=== PATIENT | female | born 1935 | race Caucasian/White ===

== ENCOUNTER 2017-11-29 08:42 | Day surgery (SDC) | payer OTHER ==
[2017-11-29] MEDS ORDERED: PHENYLEPHRINE 10% OPTH 5ML ONE ×2 (09:54→10:59)
[2017-11-29] MEDS ORDERED: CYCLOPENTOLATE 1% OPTH 2 ML ONE ×2 (09:54→10:58)
[2017-11-29] MEDS ORDERED: TETRACAINE HCL 0.5% 2ML OPTH ONE (09:54)
[2017-11-29] MEDS ORDERED: BUPIVACAINE 0.25% PF 10 ML VIAL ONE (09:54)
[2017-11-29] MEDS ORDERED: NA CHLORIDE 0.9% 500 ML ONE ×2 (09:54→10:59)
[2017-11-29] MEDS ORDERED: D50W 25 GM/50 ML SYRINGE IV ONE (10:10)
[2017-11-29] MEDS ORDERED: EPINEPHRINE/PF 1 MG/ML AMP ONE ×2 (10:17→11:08)
[2017-11-29] MEDS ORDERED: NS 0.9% VIAL 10 ML ONE (10:17)
[2017-11-29] MEDS ORDERED: MOXIFLOXACIN HCL 10 DROPS/ML **OR USE OPTH ONE (10:18)
[2017-11-29] MEDS ORDERED: DUOVISC 1 KIT OPTH ONE (10:18)
[2017-11-29] MEDS ORDERED: BALANCED SALT IRRIG PLAIN 500 ML BTL IRR ONE (10:18)
[2017-11-29] MEDS ORDERED: LIDOCAINE 1% MPF 5 ML VIAL ONE (10:30)
[2017-11-29] MEDS ORDERED: PROPOFOL 200 MG/20 ML VIAL IV ONE (10:30)
[2017-11-29] MEDS ORDERED: PHENYLEPHRINE 10% OPTH 5ML OPTH ONE ×2 (10:40→10:45)
[2017-11-29] MEDS ORDERED: CYCLOPENTOLATE 1% OPTH 2 ML OPTH ONE ×2 (10:40→10:45)
[2017-11-29] MEDS ORDERED: LIDOCAINE 2% INJ, MPF 2 ML 3 ML ONE (10:43)
--- NOTE | 2017-11-29 12:15 | P.BOP ---
Preoperative diagnosis: Nuclear sclerotic and posterior subcapsular cataract OD Postoperative diagnosis: Same + phacodenesis Primary procedure: Phacoemulsification with IOL OD, complex CTR Estimated blood loss: None Anesthesia: Local (Subtenon's infusion with anesthesia for cataract surgery.) Complications: None Implants: ZCB00 +21.0 Transferred to: Other (Day surgery) Condition: Good
--- NOTE | 2017-11-30 00:36 | OP ---
Date of Procedure: 11/29/2017 Surgeon: Gabriela Cortes MD Anesthesiologist: 1. Sheldon Diez CRNA. 2. Venkata England M.D. Preoperative Diagnosis: Nuclear sclerotic and posterior subcapsular cataract, right eye. Postoperative Diagnosis: Nuclear sclerotic and posterior subcapsular cataract plus phacodonesis, right eye. Operation Performed: Phacoemulsification with intraocular lens implant OS complex with the use of iris retractors and the capsular tension ring, right eye. Anesthesia: Per cataract surgery. Complications: None. Description Of The Procedure: In day surgery, the patient was prepped with Betadine and draped. A lid speculum was placed in the right eye. A conjunctival incision was made in the inferior nasal quadrant with Enrique scissors. A 1:1 mixture of 2% Xylocaine and 0.25% bupivacaine was placed around the globe. Approximately 5 mL were used. A Honan balloon was placed on the eye for approximately 5 minutes. The patient was brought into the operative room. The patient was prepped and draped in the usual sterile fashion for ophthalmic surgery. A lid speculum was placed in the eye. Paracentesis were made superiorly and inferiorly in the limbal cornea. Viscoat was placed in the anterior chamber. A crescent blade was used to create a tunnel incision in the temporal cornea and a keratome was used to enter the anterior chamber. Provisc was placed in the eye and 360 degree capsulotomy was performed. The lens was loose at the initiation of the capsulotomy. Four additional paracentesis sites were created with one at the wound, one 180 degrees from the wound, and one superiorly and inferiorly; through these, 4 iris retractors were placed to stabilized the lens. The lens was hydrodissected with balanced salt solution and moved freely. The lens was removed in a stop and chop fashion. A 17.15 Phaco CDE was required. Irrigation and aspiration was used to remove residual cortex. Provisc was placed in the eye. A 12 mm capsular tension ring was placed in the capsular bag without complication. A ZCB00 plus 21.0 diopter lens was placed in the capsular bag without complications. The iris retractors were removed. Irrigation and aspiration was used to remove residual viscoelastic. The paracentesis sites were hydrated with balanced salt solution and the wound and paracentesis sites were inspected and found to be watertight. Intracameral Vigamox 0.07 cc was injected at the end of the procedure. The eye was irrigated with balanced salt solution. The eye was patched with a soft cotton patch and Powell metal shield. The patient was returned to day surgery in good condition. Discharge Instructions: Ms. Yang discharged to home in good condition and is to follow up with Dr. Cortes in the morning. ZIGGY/VISHAL Voice ID: [id number] Report ID: [id number]
== END 2017-11-29 12:52 | disposition home or self-care (01) ==
LOC: OR 08:42
PROVIDERS: ATTEND Ophthalmology Retina Specialist
PROC: 08RJ3JZ Replacement of Right Lens with Synthetic Substitute, Percutaneous Approach (ICD-10-PCS; principal; 2017-11-29 10:45)
DX: H25.11 Age-related nuclear cataract, right eye (principal); H25.041 Posterior subcapsular polar age-related cataract, right eye; E11.319 Type 2 diabetes mellitus with unspecified diabetic retinopathy without macular edema; H40.053 Ocular hypertension, bilateral; I10 Essential (primary) hypertension; K21.9 Gastro-esophageal reflux disease without esophagitis; Z87.891 Personal history of nicotine dependence; Z88.6 Allergy status to analgesic agent; Z88.0 Allergy status to penicillin; Z83.3 Family history of diabetes mellitus
CPT/HCPCS: 66982; 82962 ×2; J0171 ×2; J3490

== ENCOUNTER 2020-12-03 06:00 | Inpatient (IN) | payer OTHER ==
[2020-12-03] MEDS ORDERED: ONDANSETRON 4 MG/2 ML VIAL ONE ×2 (06:42→14:11)
[2020-12-03] MEDS ORDERED: MORPHINE 4 MG/ML SYR ONE (06:42)
[2020-12-03 07:35] LABS: Protime INR 1.16
[2020-12-03 07:36] LABS: Absolute Lymphocytes (CBC) 0.6 K/uL (0.7-4.9); Basophils % 0.5 % (0-1.3); Hematocrit 34.1 % (36.0-45.0); Lymphocytes % 5.1 % (15.3-44.8); MPV 8.7 fL (7.6-11.3); RBC Red Blood Cell Count 3.68 M/uL (3.86-4.86)
[2020-12-03 08:08] LABS: ALT/SGPT 29 U/L (12-78); AST/SGOT 36 U/L (15-37); Alkaline Phosphatase 60 U/L (45-117); BUN Blood Urea Nitrogen 14 mg/dL (7-18); Bicarbonate 26 mmol/L (21-32); Bilirubin Direct 0.1 mg/dL (0-0.2); Bilirubin Total 0.5 mg/dL (0.2-1.0); Glucose Level 124 mg/dL (74-106); NT PRO-BNP 243 pg/mL (<450); Potassium 3.3 mmol/L (3.5-5.1); Protein, Total 8.1 g/dL (6.4-8.2); Sodium Level 138 mmol/L (136-145); Troponin (Emerg Dept Use Only) < 0.02 ng/mL (0.0-0.045)
[2020-12-03 08:17] LABS: Blood Morphology Comment NOT SEEN (NOT SEEN); Platelet Estimate ADEQ; White Blood Cell Scan OK (OK)
--- NOTE | 2020-12-03 08:21 | ER ---
Nurse's Notes [facility] Name: Lana Yang Age: 84 yrs Sex: Female : 1935 Arrival Date: 12/03/2020 Time: 06:03 Bed 8 Private MD: Diagnosis: Acute, closed, displaced, left femoral supcapital fracture. Presentation: 12/03 06:06 Chief complaint: Spouse and/or significant other states: Reports pt had a fall at home, ea complaining of pain to the right hip. Coronavirus screen: At this time, the client does not indicate any symptoms associated with coronavirus-19. Ebola Screen: No symptoms or risks identified at this time. Initial Sepsis Screen: Does the patient meet any 2 criteria? No. Patient's initial sepsis screen is negative. Does the patient have a suspected source of infection? No. Patient's initial sepsis screen is negative. Risk Assessment: Do you want to hurt yourself or someone else? Patient reports no desire to harm self or others. Onset of symptoms was December 03, 2020. 06:06 Method Of Arrival: EMS: [facility] 06:06 Acuity: FATEMEH 3 ea Triage Assessment: 06:09 General: Appears uncomfortable, Behavior is restless. Pain: Complains of pain in right ea hip. Historical: - Allergies: 06:09 Codeine; ea 06:09 PENICILLINS; ea - PMHx: 06:09 TIA; Hypothyroidism; Hypertension; High Cholesterol; Diabetes - IDDM; ea - PSHx: 06:09 Thyroidectomy; LUMPECTOMY L BREAST; LASER EYE SURGERY; ea - Immunization history:: Adult Immunizations up to date. - Social history:: Smoking status: Patient denies any tobacco usage or history of. - Family history:: not pertinent. - Hospitalizations: : No recent hospitalization is reported. Screenin:08 Abuse screen: Denies threats or abuse. Nutritional screening: No deficits noted. ea Tuberculosis screening: No symptoms or risk factors identified. Fall Risk None identified. Assessment: 06:15 General: Appears in no apparent distress. Behavior is calm. Pain: Unable to use pain ea scale. Patient appears restless. Neuro: Level of Consciousness is confused, Oriented to none. Respiratory: Airway is patent Respiratory effort is even, unlabored, Respiratory pattern is regular, symmetrical. Derm: Skin is pink, warm \\T\\ dry. 06:53 Reassessment: Pt taken to radiology. ea 07:45 Reassessment: Patient appears in no apparent distress at this time. Patient and/or hb family updated on plan of care and expected duration. Pain level reassessed. at bedside. 08:55 Reassessment: Pt agitated, restless, attempting to get out of bed, requiring 1:1 care, hb at bedside. Dr. Anguiano notified, Demerol administered as ordered. 09:58 Reassessment: Patient and/or family updated on plan of care and expected duration. Pain hb level reassessed. Pt somewhat restless, remains at bedside. 12:39 Reassessment: Patient and/or family updated on plan of care and expected duration. Pain tw2 level reassessed. dr. woo at bedside at this time. Vital Signs: 06:06 BP 165 / 70; Pulse 92; Resp 18; Temp 97.9; Pulse Ox 97% on R/A; Weight 61.23 kg; Height ea 5 ft. 5 in. (165.10 cm); 09:00 BP 124 / 80; Pulse 88; Resp 17; Pulse Ox 99% on R/A; Pain 8/10; hb 09:45 BP 142 / 58; Pulse 81; Resp 15; Pulse Ox 97% on R/A; hb 10:15 BP 151 / 63; Pulse 70; Resp 17; Pulse Ox 96% on R/A; tw2 11:30 BP 159 / 64; Pulse 70; Resp 17; Pulse Ox 95% on R/A; tw2 12:39 BP 158 / 67; Pulse 72; Resp 17; Pulse Ox 96% on R/A; tw2 06:06 Body Mass Index 22.46 (61.23 kg, 165.10 cm) ea 09:00 Anant (FACES) ED Course: 06:03 Patient arrived in ED. mw2 06:08 Triage completed. ea 06:08 Patient has correct armband on for positive identification. Bed in low position. Call ea light in reach. Side rails up X2. 06:08 Arm band placed on right wrist. Patient placed in an exam room, on a stretcher, on ea pulse oximetry. 06:58 Ulysses Anguiano MD is Attending Physician. rn 07:16 Inserted saline lock: 22 gauge in right forearm, using aseptic technique. Blood ea collected. 08:09 Notified ED physician of a critical lab result(s). calcium-6.7. sv 08:14 Keira Schuler, RN is Primary Nurse. hb 08:18 eJm Munoz MD is Hospitalizing Provider. rn 08:40 Silva cath inserted, using sterile technique, 18 Fr., by move coordinator, balloon inflated, to tw2 gravity drainage, other by John Valdivia. 09:58 Troponin (emerg Dept Use Only) Sent. sv 09:58 PT-INR Sent. sv 09:58 NT PRO-BNP Sent. sv 09:58 Magnesium Sent. sv 09:58 LFT's Sent. sv 09:59 CBC with Diff Sent. sv 09:59 Basic Metabolic Panel Sent. sv 09:59 XRAY Chest (1 view) Sent. sv 09:59 XRAY Hip LEFT 2 view Sent. sv 09:59 XRAY Hip RIGHT 2 view Sent. sv 10:22 COVID-19 : Document "Date of Symptom Onset" if Symptomatic. Sent. sv 10:22 CORONAVIRUS Sent. sv 10:34 No provider procedures requiring assistance completed. Patient admitted, IV remains in hb place. Administered Medications: 07:16 Drug: morphine 4 mg Route: IVP; Site: right forearm; ea 07:17 Drug: Zofran (Ondansetron) 4 mg Route: IVP; Site: right forearm; ea 08:54 Drug: Demerol (meperidine) 25 mg Route: IVP; Site: left forearm; hb 09:30 Follow up: Response: No adverse reaction hb 10:16 Drug: Demerol (meperidine) 25 mg Route: IVP; Site: left forearm; hb Outcome: 08:20 Decision to Hospitalize by Provider. rn 10:34 Admitted to ER Hold. Please see [facility] for further documentation. hb 10:34 Condition: stable 10:34 Instructed on the need for admit. 16:50 Patient left the ED. hb Signatures: Barbara Duncan RN RN sv Nieto, Roman, MD MD rn Baxter, Heather, RN RN hb Wise, Tara, RN RN tw2 Saima Ro RN Yasir Oconnor ea mw2
--- NOTE | 2020-12-03 08:21 | EDPHYS ---
Physician Documentation [facility] Name: Lana Yang Age: 84 yrs Sex: Female : 1935 Arrival Date: 12/03/2020 Time: 06:03 Bed 8 Private MD: ED Physician Ulysses Anguiano HPI: 12/03 07:31 This 84 yrs old Female presents to ER via EMS with complaints of Hip Pain. rn 07:31 The patient or guardian reports decreased range of motion, an injury, pain. The rn complaints affect the left hip. Onset: The symptoms/episode began/occurred this morning. Modifying factors: The symptoms are alleviated by remaining still, the symptoms are aggravated by any movement. Associated signs and symptoms: Loss of consciousness: the patient experienced no loss of consciousness, Pertinent positives: None. Pertinent negatives: abdominal pain, chest pain, fever, headache, incontinence, shortness of breath, vomiting, weakness. Severity of symptoms: At their worst the symptoms were moderate, in the emergency department the symptoms are unchanged. The patient has not experienced similar symptoms in the past. reports fall, this morning, complaining only of left hip pain. UNable to ambulate. Not on blood thinners.. Historical: - Allergies: 06:09 Codeine; ea 06:09 PENICILLINS; ea - PMHx: 06:09 TIA; Hypothyroidism; Hypertension; High Cholesterol; Diabetes - IDDM; ea - PSHx: 06:09 Thyroidectomy; LUMPECTOMY L BREAST; LASER EYE SURGERY; ea - Immunization history:: Adult Immunizations up to date. - Social history:: Smoking status: Patient denies any tobacco usage or history of. - Family history:: not pertinent. - Hospitalizations: : No recent hospitalization is reported. ROS: 07:31 Constitutional: Negative for fever, chills, and weight loss, Eyes: Negative for injury, rn pain, redness, and discharge, Neck: Negative for injury, pain, and swelling, Cardiovascular: Negative for chest pain, palpitations, and edema, Respiratory: Negative for shortness of breath, cough, wheezing, and pleuritic chest pain, Abdomen/GI: Negative for abdominal pain, nausea, vomiting, diarrhea, and constipation, Back: Negative for injury and pain, : Negative for injury, bleeding, discharge, and swelling, MS/Extremity: + left hip pain Skin: Negative for injury, rash, and discoloration, Neuro: Negative for headache, weakness, numbness, tingling, and seizure. Exam: 07:31 Constitutional: This is a well developed, well nourished patient who is awake, alert, rn seems uncomfortable Head/Face: Normocephalic, atraumatic. Neck: NO midline cervical tenderness Chest/axilla: Normal chest wall appearance and motion. Nontender with no deformity. No lesions are appreciated. Cardiovascular: Regular rate and rhythm. No pulse deficits. Respiratory: No increased work of breathing, no retractions or nasal flaring. Abdomen/GI: soft, non-tender Skin: Warm, dry, no lacerations MS/ Extremity: Pulses equal, no cyanosis. + left hip tenderness and painful ROM, no gross deformity. Neuro: Awake and alert, GCS 15 Vital Signs: 06:06 BP 165 / 70; Pulse 92; Resp 18; Temp 97.9; Pulse Ox 97% on R/A; Weight 61.23 kg; Height ea 5 ft. 5 in. (165.10 cm); 09:00 BP 124 / 80; Pulse 88; Resp 17; Pulse Ox 99% on R/A; Pain 8/10; hb 09:45 BP 142 / 58; Pulse 81; Resp 15; Pulse Ox 97% on R/A; hb 10:15 BP 151 / 63; Pulse 70; Resp 17; Pulse Ox 96% on R/A; tw2 11:30 BP 159 / 64; Pulse 70; Resp 17; Pulse Ox 95% on R/A; tw2 12:39 BP 158 / 67; Pulse 72; Resp 17; Pulse Ox 96% on R/A; tw2 06:06 Body Mass Index 22.46 (61.23 kg, 165.10 cm) ea 09:00 Anant (FACES) hb MDM: 06:58 Patient medically screened. rn 07:33 ED course: Signed out to me by Dr. Bernal, pending xrays s/p fall this AM, + left hip fx. .rn 08:17 Differential diagnosis: hip fracture, intertrochanteric fracture, femoral neck rn fracture, strain. Data reviewed: vital signs, nurses notes, lab test result(s), radiologic studies, plain films, and as a result, I will admit patient. Counseling: I had a detailed discussion with the patient and/or guardian regarding: the historical points, exam findings, and any diagnostic results supporting the discharge/admit diagnosis, lab results, radiology results, the need for further work-up and treatment in the hospital. Response to treatment: the patient's symptoms have markedly improved after treatment, and as a result, I will admit patient. Admission orders: after a detailed discussion of the patient's condition and case, the admit orders are written by me. ED course: Pt with hip fx, will admit to Dr. Munoz with Dr. Leonard consult.. 12/03 06:18 Order name: Basic Metabolic Panel 12/03 06:18 Order name: CBC with Diff 12/03 06:18 Order name: LFT's 12/03 06:18 Order name: Magnesium 12/03 06:18 Order name: NT PRO-BNP 12/03 06:18 Order name: PT-INR 12/03 06:18 Order name: Troponin (emerg Dept Use Only) 12/03 07:38 Order name: CBC with Automated Diff; Complete Time: 10:42 EDMS 12/03 07:50 Order name: Protime (+INR); Complete Time: 08:00 EDMS 12/03 08:09 Order name: Basic Metabolic Panel; Complete Time: 10:42 EDMS 12/03 08:09 Order name: Liver (Hepatic) Function; Complete Time: 10:42 EDMS 12/03 08:09 Order name: Troponin (Emerg Dept Use Only); Complete Time: 10:42 EDMS 12/03 08:09 Order name: NT PRO-BNP; Complete Time: 10:42 EDMS 12/03 08:09 Order name: Magnesium; Complete Time: 10:42 EDMS 12/03 06:12 Order name: XRAY Hip RIGHT 2 view 12/03 06:18 Order name: XRAY Hip LEFT 2 view 12/03 06:18 Order name: XRAY Chest (1 view) 12/03 06:18 Order name: EKG; Complete Time: 06:19 ea 12/03 06:18 Order name: Cardiac monitoring; Complete Time: 08:43 12/03 06:18 Order name: EKG - Nurse/Tech; Complete Time: 08:43 12/03 08:17 Order name: CBC Smear Scan; Complete Time: 10:42 EDND 12/03 08:49 Order name: RAD; Complete Time: 10:42 EDND 12/03 08:50 Order name: RAD; Complete Time: 10:42 [facility] 12/03 08:57 Order name: COVID-19 : Document "Date of Symptom Onset" if Symptomatic. hb 12/03 10:14 Order name: CORONAVIRUS EDND 12/03 10:54 Order name: SARS-COV-2 RT PCR; Complete Time: 12:54 EDND 12/03 06:18 Order name: IV Saline Lock; Complete Time: 07:17 ea 12/03 06:18 Order name: Labs collected and sent; Complete Time: 07:17 ea 12/03 06:18 Order name: O2 Per Protocol; Complete Time: 06:52 ea 12/03 06:18 Order name: O2 Sat Monitoring; Complete Time: 06:52 ea 12/03 08:43 Order name: Silva; Complete Time: 08:43 tw2 Administered Medications: 07:16 Drug: morphine 4 mg Route: IVP; Site: right forearm; ea 07:17 Drug: Zofran (Ondansetron) 4 mg Route: IVP; Site: right forearm; ea 08:54 Drug: Demerol (meperidine) 25 mg Route: IVP; Site: left forearm; hb 09:30 Follow up: Response: No adverse reaction hb 10:16 Drug: Demerol (meperidine) 25 mg Route: IVP; Site: left forearm; hb Disposition: 12/03/20 08:20 Hospitalization ordered by eJm Munoz for Inpatient Admission. Preliminary diagnosis is Acute, closed, displaced, left femoral supcapital fracture.. - Bed requested for Telemetry/MedSurg (Inpatient). - Status is Inpatient Admission. hb - Condition is Stable. - Problem is new. - Symptoms have improved. Signatures: Dispatcher [employer] EDND Tere Duron Roman, MD MD rn Baxter, Heather, RN RN hb Wise, Tara, RN RN tw2 Saima Ro RN RN ea Corrections: (The following items were deleted from the chart) 10:23 08:20 Hospitalization Ordered by Jem Munoz MD for Inpatient Admission. Preliminary bd diagnosis is Acute, closed, displaced, left femoral supcapital fracture.. Bed requested for Telemetry/MedSurg (Inpatient). Status is Inpatient Admission. Condition is Stable. Problem is new. Symptoms have improved. rn 16:09 10:23 12/03/2020 08:20 Hospitalization Ordered by Jem Munoz MD for Inpatient bd Admission. Preliminary diagnosis is Acute, closed, displaced, left femoral supcapital fracture.. Bed requested for [facility] ER HOLD. Status is Inpatient Admission. Condition is Stable. Problem is new. Symptoms have improved. bd 16:50 16:09 12/03/2020 08:20 Hospitalization Ordered by Jem Munoz MD for Inpatient hb Admission. Preliminary diagnosis is Acute, closed, displaced, left femoral supcapital fracture.. Bed requested for Telemetry/MedSurg (Inpatient). Status is Inpatient Admission. Condition is Stable. Problem is new. Symptoms have improved. bd
--- NOTE | 2020-12-03 08:48 | RAD REPORT ---
EXAM DESCRIPTION: RAD - Hip Left 2 View - 12/03/2020 6:53 am CLINICAL HISTORY: PAIN, fall with left hip pain COMPARISON: No comparisons FINDINGS: AP and frogleg views of the left hip were obtained. Transverse fracture through the left femoral neck is present near the subcapital region. Pathologic c omponent is not suspected. There is impaction of the medial margin of the neck fragment into the base of the femoral head. No dislocation of the femoral head from the acetabulum. No AVN of femoral head seen. No pathologic changes to the left hemipelvis. No rami fractures confirmed. No significant soft tissue finding IMPRESSION: Left femoral neck fracture as detailed.
--- NOTE | 2020-12-03 08:49 | RAD REPORT ---
EXAM DESCRIPTION: RAD - Chest Single View - 12/03/2020 6:53 am CLINICAL HISTORY: CHEST PAIN, preop examination for left hip fracture COMPARISON: Portable February 2016 TECHNIQUE: AP portable chest image was obtained 12/03/2020 6:53 am . FINDINGS: Lung volumes are reduced compared to the prior study. No failure, volume overload or focal infiltrate seen. Interstitial pattern is not substantially different. Heart and vasculature are norm al. No measurable pleural effusion and no pneumothorax. No acute bony abnormality seen. No acute aort ic findings suspected. IMPRESSION: No acute cardiopulmonary process. No significant change from comparison study.
[2020-12-03] MEDS ORDERED: MEPERIDINE HCL 25 MG/ML SYR ONE ×2 (09:08→10:31)
[2020-12-03] MEDS ORDERED: ONDANSETRON 4 MG/2 ML VIAL IV PRN (09:42)
[2020-12-03] MEDS: NA CHLORIDE 0.9% 1,000 ML IV SCH (10:00)
[2020-12-03 11:16] VITALS: BMI 22.4
[2020-12-03] MEDS: CEFAZOLIN/SWI 1gm 1 GM/10 ML SYR IV SCH ×3 (12:00→19:12)
[2020-12-03] MEDS: HYDROMORPHONE HCL 1 MG/ML INJ IV PRN (14:05)
[2020-12-03] MEDS ORDERED: HYDROMORPHONE HCL 1 MG/ML INJ ONE (14:10)
[2020-12-03] MEDS ORDERED: CEFAZOLIN/SWI 1gm 1 GM/10 ML SYR ONE (14:11)
[2020-12-03] MEDS ORDERED: NA CHLORIDE 0.9% 1,000 ML ONE (14:11)
[2020-12-03] MEDS ORDERED: LORazepam 2 MG/ML VIAL IV ONE (20:55)
[2020-12-03] MEDS ORDERED: D50W 25 GM/50 ML SYRINGE IV PRN (20:56)
[2020-12-03] MEDS ORDERED: GLUCAGON 1 MG/VIAL IM PRN (20:56)
[2020-12-03] MEDS: INSULIN -REGULAR HUMAN 50 UNIT/0.5 ML ML SQ SCH (20:59)
[2020-12-04] MEDS: CEFAZOLIN/SWI 1gm 1 GM/10 ML SYR IV SCH ×3 (01:01→11:19)
[2020-12-04] MEDS: HYDROMORPHONE HCL 1 MG/ML INJ IV PRN ×2 (04:45→22:17)
[2020-12-04] MEDS: NA CHLORIDE 0.9% 1,000 ML IV SCH ×3 (04:52→22:16)
--- NOTE | 2020-12-04 05:27 | CON ---
Date of Consultation: 12/03/2020 History Of Present Illness: This is my first time seeing this patient to my knowledge, although may have seen in the past. She is an 84-year-old female who unfortunately fell injuring her right lower extremity. She was seen in the emergency department where she was ruled out for other injuries, linda taveras, x-rays demonstrated a displaced left femoral neck fracture. She Was ruled out for other injurie s other than injury to left hip. Physical Examination: All long bones and joints are palpated without pain or crepitation with the exception of her left hip which is painful to knee movement or manipulation. Imaging: Review of x-rays revealed a displaced left femoral neck fracture. Assessment: An 84-year-old female who is ambulatory now with a displaced left femoral neck fracture. Her family is there with her. She has Alzheimer's. She is unable to really communicate, but famil y says they understand risks, benefits, and alternatives of different methods of treating this. We w ill have her undergo medical evaluation most likely proceed with bipolar hemiarthroplasty tomorrow. All the family's questions were otherwise answered. /VISHAL Voice ID: [id number] Report ID: [id number]
[2020-12-04 05:51] LABS: Absolute Lymphocytes (CBC) 0.5 K/uL (0.7-4.9); Basophils % 0.4 % (0-1.3); Hematocrit 31.6 % (36.0-45.0); Lymphocytes % 4.5 % (15.3-44.8); RBC Red Blood Cell Count 3.41 M/uL (3.86-4.86)
[2020-12-04 06:05] LABS: Protime INR 1.36
[2020-12-04 06:40] LABS: Albumin 3.4 g/dL (3.4-5.0); Bilirubin Total 0.8 mg/dL (0.2-1.0); Magnesium 1.9 mg/dL (1.8-2.4); Potassium 3.5 mmol/L (3.5-5.1); Protein, Total 7.3 g/dL (6.4-8.2)
[2020-12-04] MEDS: INSULIN -REGULAR HUMAN 50 UNIT/0.5 ML ML SQ SCH ×3 (07:30→22:14)
--- NOTE | 2020-12-04 08:45 | EKG ---
Test Date: 2020-12-03 Test Time: 07:19:14 Hogshead Opener: JW MEASUREMENT RESULTS: Intervals: Rate: 84 LA: 154 QRSD: 68 QT: 412 QTc: 486 [place]: P: 5 LA: 154 QRS: 39 T: 32 INTERPRETIVE STATEMENTS: Normal sinus rhythm Nonspecific ST abnormality Abnormal ECG Compared to ECG 02/18/2016 06:26:29 ST (T wave) deviation now present Electronically Signed On 12-04-20 08:41:49 CDT by Daniel Dyson
[2020-12-04] MEDS: ENOXAPARIN 40 MG/0.4 ML SQ SCH (09:00)
[2020-12-04] MEDS: KCL 20 MEQ/100 mL IVPB 20 MEQ/100 ML BAG IV SCH ×2 (09:00→17:04)
--- NOTE | 2020-12-04 11:20 | P.HP ---
Certification for Inpatient Patient admitted to: Inpatient With expected LOS: >2 Midnights Patient will require the following post-hospital care: Rehabilitation Practitioner: I am a practitioner with admitting privileges, knowledge of patient current condition, hospital course, and medical plan of care. Services: Services provided to patient in accordance with Admission requirements found in Title 42 Section 412.3 of the Code of Federal Regulations Patient History Date of Service: 12/03/20 Reason for admission: Status post fall and left femoral neck fracture History of Present Illness: Patient is an 84-year-old female who came to the hospital after suffering a fall. She lost her balance and suffered a left femoral neck fracture. Patient was admitted to the hospital for further evaluation. Patient with multiple comorbidities including hypertension and diabetes. Patient denies any chest pain or shortness of breath. Patient does have a history of dementia. She is at Alzheimer's dementia. Spoke with family and they are wanting to proceed with surgery. Risks and benefits were explained. At this time plan is for surgery tomorrow morning. Allergies Penicillins Allergy (Verified 11/05/17 11:55) Rash codeine Adverse Reaction (Verified 11/05/17 11:55) Nausea/Vomiting Home Medications: Amlodipine [Norvasc*] 5 mg PO DAILY 12/03/20 Calcitriol [Rocaltrol] 0.25 mcg PO DAILY 12/03/20 Donepezil [Aricept*] 10 mg PO DAILY 12/03/20 Dorzolamide [Trusopt 2%*] 2 drops EACH EYE DAILY 12/03/20 Ezetimibe 10 mg PO BEDTIME 12/03/20 Levothyroxine [Synthroid*] 0.112 mcg PO DAILY 12/03/20 Olmesartan Medoxomil 40 mg PO DAILY 12/03/20 Timolol [Betimol] 2 drops LEFT EYE DAILY 12/03/20 Trazodone [Desyrel*] 50 mg PO 30 MIN BEFORE HS 12/03/20 calcitrioL [Calcitriol] 25 mcg PO DAILY 12/03/20 - Past Medical/Surgical History Has patient received pneumonia vaccine in the past: Yes Diabetic: Yes -: Diabetes mellitus type 2 -: Hypertension -: Hyperlipidemia -: Glaucoma -: Cataracts -: hypothyroidism -: Cataract surgery -: laser eye surgery -: L breast lumpectomy -: thyroidectomy Psychosocial/ Personal History: She is . Has 2 children. She no longer works. - Family History Brother Medical History: Cancer - Social History Smoking Status: Former smoker Alcohol use: No CD- Drugs: No Caffeine use: Yes Review of Systems 10-point ROS is otherwise unremarkable Physical Examination - Vital Signs Temperature: 98.4 F Blood Pressure: 146/71 Pulse: 70 Respirations: 14 Pulse Ox (%): 91 - Physical Exam General: Alert, In no apparent distress, Demented HEENT: Atraumatic, PERRLA, Mucous membr. moist/pink, EOMI, Sclerae nonicteric Neck: Supple, 2+ carotid pulse no bruit, No LAD, Without JVD or thyroid abnormality Respiratory: Clear to auscultation bilaterally, Normal air movement Cardiovascular: Regular rate/rhythm, Normal S1 S2, Systolic murmur Gastrointestinal: Normal bowel sounds, Soft and benign, Non-distended, No tenderness Musculoskeletal: No clubbing, No swelling, Tenderness Integumentary: No rashes Neurological: Normal speech, Normal tone, Sensation intact, Cranial nerves 3-12 intact, Normal affect, Abnormal gait, Abnormal strength Lymphatics: No axilla or inguinal lymphadenopathy Assessment & Plan - Problems (Diagnosis) (1) Displaced fracture of left femoral neck Current Visit: Yes Status: Acute (2) Alzheimer's type dementia Current Visit: Yes Status: Acute (3) Diabetes mellitus Onset Date: 02/18/16 Current Visit: No Status: Chronic (4) Hyperlipidemia Onset Date: 02/18/16 Current Visit: No Status: Chronic Qualifiers: (5) Hypertension Onset Date: 02/18/16 Current Visit: No Status: Chronic Qualifiers: - Plan Plan: 1. Pain control 2. Physical therapy evaluation after surgery 3. Orthopedic surgeon consultation appreciated 4. Supportive care 5. Strict blood pressure and blood sugar control 6. GI and DVT prophylaxis Discharge Plan: Other (Rehabilitation) Plan to discharge in: Greater than 2 days - Advance Directives Does patient have a Living Will: No Does patient have a Durable POA for Healthcare: No - Code Status/Comfort Care Code Status Assessed: Yes Code Status: Full Code Critical Care: No Time Spent Managing PTS Care (In Minutes): 45
[2020-12-04] MEDS ORDERED: TRANEXAMIC ACID 1,000 MG in NA CHLORIDE 0.9% 50 ML IV SCH (12:00)
[2020-12-04] MEDS ORDERED: INSULIN -REGULAR HUMAN 50 UNIT/0.5 ML ML SQ SCH (12:00)
[2020-12-04] MEDS ORDERED: CALCIUM GLUC 10% INJ 4.65 MEQ in NA CHLORIDE 0.9% 100 ML IV ONE (12:03)
[2020-12-04] MEDS ORDERED: FENTANYL CITR 100 MCG/2 ML ONE (12:06)
[2020-12-04] MEDS ORDERED: LIDOCAINE 2% MPF 5 ML VIAL ONE (12:06)
[2020-12-04] MEDS ORDERED: HYDROMORPHONE HCL 0.5 MG/0.5 ML INJ IV ONE (12:06)
[2020-12-04] MEDS ORDERED: propofoL 200 MG/20 ML VIAL IV ONE (12:06)
[2020-12-04] MEDS ORDERED: ROCURONIUM 50 MG/5 ML VIAL IV ONE (12:07)
[2020-12-04] MEDS ORDERED: ONDANSETRON 4 MG/2 ML VIAL ONE (12:07)
[2020-12-04] MEDS: MIDAZOLAM HCL 2 MG/2 ML INJ ONE ×2 (12:20→12:25)
[2020-12-04] MEDS ORDERED: HYDROMORPHONE HCL 1 MG/ML INJ ONE (12:33)
[2020-12-04] MEDS ORDERED: NA CHLORIDE 0.9% 1,000 ML ONE (12:36)
--- NOTE | 2020-12-04 14:51 | P.BOP ---
Preoperative diagnosis: left femoral neck fracture Postoperative diagnosis: same Primary procedure: left hip bipolar hemiarthoplasty Estimated blood loss: 150 Anesthesia: General Complications: None Transferred to: Recovery Room Condition: Good
[2020-12-04] MEDS ORDERED: GLYCOPYRROLATE 0.2 MG/ML SYR ONE (15:03)
[2020-12-04] MEDS ORDERED: NEOSTIGMINE 1 MG/ML -5 ML ONE (15:04)
[2020-12-04] MEDS: HYDROMORPHONE HCL 1 MG/ML INJ ONE ×2 (15:39→15:44)
[2020-12-04] MEDS ORDERED: HYDRALAZINE HCL 20 MG/ML VIAL ONE (15:48)
[2020-12-04] MEDS ORDERED: LORazepam 2 MG/ML VIAL ONE (16:13)
[2020-12-04] MEDS ORDERED: LORazepam 2 MG/ML VIAL IV ONE ×2 (17:00→23:19)
--- NOTE | 2020-12-04 17:09 | P.PN ---
Subjective Date of Service: 12/04/20 Patient is severely demented. Scheduled for open reduction internal fixation of left hip. Will need prolonged physical therapy and rehab afterwards. Review of Systems is unable to be obtained Physical Examination - Vital Signs Temperature: 98.5 F Blood Pressure: 109/63 Pulse: 63 Respirations: 14 Pulse Ox (%): 91 - Physical Exam General: Alert, In no apparent distress, Demented HEENT: Atraumatic, PERRLA, EOMI Neck: Supple, JVD not distended Respiratory: Clear to auscultation bilaterally, Normal air movement Cardiovascular: Regular rate/rhythm, Normal S1 S2, Systolic murmur Gastrointestinal: Normal bowel sounds, Soft and benign, Non-distended, No tenderness Musculoskeletal: No clubbing, No swelling, No tenderness Neurological: Normal speech - Studies Medications List Reviewed: Yes Assessment & Plan - Problems (Diagnosis) (1) Displaced fracture of left femoral neck Current Visit: Yes Status: Acute (2) Alzheimer's type dementia Current Visit: Yes Status: Acute (3) Diabetes mellitus Onset Date: 02/18/16 Current Visit: No Status: Chronic (4) Hyperlipidemia Onset Date: 02/18/16 Current Visit: No Status: Chronic Qualifiers: (5) Hypertension Onset Date: 02/18/16 Current Visit: No Status: Chronic Qualifiers: - Plan Plan: Continue with plan of care as mentioned below 1. Patient go to the operating room today. Benefits outweigh the risk of surgery. 2. Physical therapy evaluation after surgery 3. Orthopedic surgeon consultation appreciated 4. Supportive care 5. Strict blood pressure and blood sugar control 6. GI and DVT prophylaxis Discharge Plan: Home Plan to discharge in: Greater than 2 days - Advance Directives Does patient have a Living Will: No Does patient have a Durable POA for Healthcare: No - Code Status/Comfort Care Code Status: Full Code Critical Care: No Time Spent Managing PTS Care (In Minutes): 35
--- NOTE | 2020-12-04 22:44 | OP ---
Date of Procedure: 12/04/2020 Surgeon: Luis Angel Leonard MD Preoperative Diagnosis: Left displaced femoral neck fracture. Postoperative Diagnosis: Left displaced femoral neck fracture. Procedure: Left hip bipolar hemiarthroplasty using the [place] cemented system. Estimated Blood Loss: 150 cc. Complications: None. Indication For Operation: Ms. Yang is an 84-year-old female who unfortunately suffers from chao ia and fell injuring her left lower extremity. She was seen and examined in the emergency department where she was ruled out for other injuries other than abrasions and some bruising, but x-rays demons trated a displaced left femoral neck fracture. Risks, benefits, and alternatives to different method s of treating this have been talked to the family including the possibility of infection, dislocation , especially a problem those with dementia. He says he understands things as presented and at this t karen agrees to proceed. Procedure In Detail: The patient was taken to the operating room in the supine position. General an esthesia was obtained. She was then transferred to the operative table. She was then rolled right s philly down with an axillary roll. She was in appropriate position using hip positioners and her left l ower extremity was then prepped and draped in usual sterile fashion for arthroplasty. After this, a standard posterolateral incision was taken down carefully through skin, only meticulous hemostasis be ing maintained using Bovie electrocautery. The fascia was encountered. It was then divided longitud inally until near the tip of the greater trochanter where the muscles of gluteus bereket were encount ered. Gluteus bereket muscle was then spread using finger pressure. Finger was used to palpate the sciatic nerve and Charnley was used to assist in visualization. Bursa was then removed carefully bryant iding injury to the sciatic nerve. This was followed by takedown of the external rotators and capsul e as a unit. These were tagged for later repair. A femoral neck cut was then done, which was very s lightly shorter than normal. Any neck pieces were removed. The head was then removed and sized usin g ring gauges. Any debris was removed from the acetabulum and box storage worker was used to lateralize. Th is was followed by using the canal-finding reamer. It was then sequentially broached. Once the broa ch was quite tight, the bone plug was placed to appropriate depth. It was then irrigated until the i rrigation runs completely clear. After this, third generation cementation technique was used, and th e final stem was then placed to appropriate depth. It was allowed to harden and a trial reduction wi th the +4 was tried, appeared to be quite good. However, given the patient's diagnosis of mental dif ficulties, decision was made to go slightly longer a +8. This was reduced and she was stable to full flexion, internal rotation to at least 30 degrees. Full adduction. It was decided as the final imp lant. The final ball was then applied care being taken to avoid any debris within the acetabulum. I t was again copiously irrigated and the external rotators and capsule were repaired back to the great er trochanter via bone tunnels. It was again irrigated and the fascia was closed in a watertight fas hion using heavy Vicryl sutures. It was again irrigated. The skin was closed using Vicryl followed by tera. The patient was then placed in Aquacel dressing, awakened and taken to recovery room in good condition. No complications. SE/MODL Voice ID: [id number] Report ID: [id number]
[2020-12-05] MEDS: ACETAMINOPHEN 500 MG TAB PO PRN ×2 (00:56→20:13)
[2020-12-05 05:55] LABS: Absolute Lymphocytes (CBC) 0.5 K/uL (0.7-4.9); Basophils % 0.3 % (0-1.3); Hematocrit 26.8 % (36.0-45.0); Lymphocytes % 4.8 % (15.3-44.8); MPV 9.2 fL (7.6-11.3); RBC Red Blood Cell Count 2.85 M/uL (3.86-4.86)
[2020-12-05 06:06] LABS: Potassium 3.3 mmol/L (3.5-5.1)
[2020-12-05] MEDS: KCL 20 MEQ/100 mL IVPB 20 MEQ/100 ML BAG IV SCH ×2 (06:37→08:29)
[2020-12-05] MEDS: INSULIN -REGULAR HUMAN 50 UNIT/0.5 ML ML SQ SCH ×4 (07:30→21:51)
[2020-12-05] MEDS ORDERED: CALCIUM GLUC 10% INJ 4.65 MEQ in NA CHLORIDE 0.9% 100 ML IV ONE ×2 (08:20→15:55)
[2020-12-05] MEDS: ENOXAPARIN 40 MG/0.4 ML SQ SCH (08:29)
[2020-12-05] MEDS ORDERED: LORazepam 2 MG/ML VIAL IV ONE (08:52)
[2020-12-05] MEDS: HYDROMORPHONE HCL 1 MG/ML INJ IV PRN (12:32)
[2020-12-05] MEDS ORDERED: WATER FOR INJ,STERILE 10 ML IM PRN (13:14)
[2020-12-05] MEDS ORDERED: ZIPRASIDONE MESYLA 20 MG/VIAL IM ONE (13:14)
[2020-12-05] MEDS: NA CHLORIDE 0.9% 1,000 ML IV SCH (15:20)
[2020-12-05] MEDS: HALOPERIDOL LACT 5 MG/ML INJ IV PRN ×2 (17:50→21:41)
[2020-12-05] MEDS: RISPERIDONE 0.25 MG TABLET PO SCH (20:13)
[2020-12-05] MEDS: CALCIUM CARB 500MG/VIT D 200 IU TAB PO SCH (21:00)
[2020-12-05] MEDS ORDERED: POTASSIUM CL SA 10 MEQ TAB PO ONE (21:00)
[2020-12-06] MEDS ORDERED: NA CHLORIDE 0.9% 50 ML ONE (00:12)
[2020-12-06] MEDS: KCL 20 MEQ/100 mL IVPB 20 MEQ/100 ML BAG IV SCH ×2 (02:01)
--- NOTE | 2020-12-06 02:13 | PN ---
Date of Progress Note: 12/05/2020 The patient is seen today. She is quite confused. She was pulling at some of her bed linens, howeve r, her dressing as well as her Silva are intact. She does have her abduction pillow in place. Her h eels are nontender. Dressing is clean, dry, and intact. Review of laboratories reveal somewhat high glucose as well as low calcium and hemoglobin of 8.9. These will be addressed by the hospitalist. I do recommend posterior hip precautions as they can be followed as well as anticoagulation if warran yaritza for 3 weeks followed by aspirin with removal of tera at 2 weeks from time of surgery. She can be weightbearing as tolerated. SE/MODL Voice ID: [id number] Report ID: [id number]
[2020-12-06] MEDS: INSULIN -REGULAR HUMAN 50 UNIT/0.5 ML ML SQ SCH ×4 (07:30→21:00)
[2020-12-06] MEDS: ENOXAPARIN 40 MG/0.4 ML SQ SCH (09:00)
[2020-12-06] MEDS: CALCIUM CARB 500MG/VIT D 200 IU TAB PO SCH ×3 (09:00→20:43)
[2020-12-06] MEDS ORDERED: KCL 20 MEQ/100 mL IVPB 20 MEQ/100 ML BAG IV SCH (17:00)
[2020-12-06] MEDS: RISPERIDONE 0.25 MG TABLET PO SCH (20:43)
[2020-12-06] MEDS: HALOPERIDOL LACT 5 MG/ML INJ IV PRN (22:21)
[2020-12-07] MEDS: LORazepam 2 MG/ML VIAL IV PRN (00:14)
[2020-12-07] MEDS: HALOPERIDOL LACT 5 MG/ML INJ IV PRN (04:20)
[2020-12-07] MEDS: INSULIN -REGULAR HUMAN 50 UNIT/0.5 ML ML SQ SCH ×4 (07:30→21:22)
[2020-12-07 07:42] LABS: BUN Blood Urea Nitrogen 13 mg/dL (7-18); Bicarbonate 18 mmol/L (21-32); Glucose Level 302 mg/dL (74-106); Potassium 3.4 mmol/L (3.5-5.1); Sodium Level 136 mmol/L (136-145)
[2020-12-07] MEDS: CALCIUM CARB 500MG/VIT D 200 IU TAB PO SCH ×3 (09:00→20:33)
[2020-12-07] MEDS: ENOXAPARIN 40 MG/0.4 ML SQ SCH (09:00)
[2020-12-07] MEDS: KCL 20 MEQ/100 mL IVPB 20 MEQ/100 ML BAG IV SCH ×2 (20:32→22:08)
[2020-12-07] MEDS: RISPERIDONE 0.25 MG TABLET PO SCH (20:33)
[2020-12-07] MEDS ORDERED: NA CHLORIDE 0.9% 250 ML ONE (20:56)
[2020-12-08 06:48] LABS: BUN Blood Urea Nitrogen 16 mg/dL (7-18); Bicarbonate 22 mmol/L (21-32); Glucose Level 202 mg/dL (74-106); Potassium 3.5 mmol/L (3.5-5.1); Sodium Level 139 mmol/L (136-145)
[2020-12-08] MEDS: INSULIN -REGULAR HUMAN 50 UNIT/0.5 ML ML SQ SCH ×4 (07:30→20:42)
[2020-12-08] MEDS: ENOXAPARIN 40 MG/0.4 ML SQ SCH (08:54)
[2020-12-08] MEDS: CALCIUM CARB 500MG/VIT D 200 IU TAB PO SCH ×3 (08:55→21:00)
[2020-12-08] MEDS ORDERED: KCL 20 MEQ/100 mL IVPB 20 MEQ/100 ML BAG IV SCH (09:00)
[2020-12-08] MEDS ORDERED: NA CHLORIDE 0.9% 250 ML ONE (18:20)
[2020-12-08] MEDS ORDERED: POTASSIUM 25 MEQ EFFERV TAB PO ONE (18:32)
[2020-12-08] MEDS: LORazepam 2 MG/ML VIAL IV PRN (20:42)
[2020-12-08] MEDS: RISPERIDONE 0.25 MG TABLET PO SCH (21:00)
--- NOTE | 2020-12-08 21:13 | P.PN ---
Date of Service: 12/05/20 Subjective Continuing with physical therapy. Patient confused and agitated and having to use anxiolytics to help patient relax Review of Systems is unable to be obtained Physical Examination - Vital Signs Reviewed - Physical Exam General: Alert, In no apparent distress, Demented Respiratory: Clear to auscultation bilaterally, Normal air movement Cardiovascular: Regular rate/rhythm, Normal S1 S2, Systolic murmur Gastrointestinal: Normal bowel sounds, Soft and benign, Non-distended, No tenderness Musculoskeletal: No clubbing, No swelling, No tenderness Neurological: Normal speech; moves all extremities Assessment & Plan - Problems (Diagnosis) (1) Displaced fracture of left femoral neck Current Visit: Yes Status: Acute (2) Alzheimer's type dementia Current Visit: Yes Status: Acute (3) Diabetes mellitus Onset Date: 02/18/16 Current Visit: No Status: Chronic (4) Hyperlipidemia Onset Date: 02/18/16 Current Visit: No Status: Chronic (5) Hypertension Onset Date: 02/18/16 Current Visit: No Status: Chronic Qualifiers: - Plan Plan: Continue with plan of care as mentioned below 1. Start physical therapy; anxiolytics as needed 2. Patient will need 1 on 1 sitter 3. Orthopedic surgeon consultation appreciated 4. Supportive care; probably will not qualify for inpatient rehab as patient does not follow commands well 5. Strict blood pressure and blood sugar control 6. GI and DVT prophylaxis
--- NOTE | 2020-12-08 23:28 | P.PN ---
Date of Service: 12/06/20 Subjective Patient still very agitated. Symptoms are somewhat better. Family is able to calm patient down; patient is already ambulating with therapy Review of Systems is unable to be obtained Physical Examination - Vital Signs Reviewed - Physical Exam General: Alert, In no apparent distress, Demented Respiratory: Clear to auscultation bilaterally, Normal air movement Cardiovascular: Regular rate/rhythm, Normal S1 S2, Systolic murmur Gastrointestinal: Normal bowel sounds, Soft and benign, Non-distended, No tenderness Musculoskeletal: No clubbing, No swelling, No tenderness Neurological: Normal speech; moves all extremities; strength is somewhat imp roved Assessment & Plan - Problems (Diagnosis) (1) Displaced fracture of left femoral neck Current Visit: Yes Status: Acute (2) Alzheimer's type dementia Current Visit: Yes Status: Acute (3) Diabetes mellitus Onset Date: 02/18/16 Current Visit: No Status: Chronic (4) Hyperlipidemia Onset Date: 02/18/16 Current Visit: No Status: Chronic (5) Hypertension Onset Date: 02/18/16 Current Visit: No Status: Chronic Qualifiers: - Plan Plan: Continue with plan of care as mentioned below 1. Continue physical therapy at this time. Patient's strength is improving 2. Family is staying at bedside and will arrange for 1:1 sitter 3. Orthopedic surgeon consultation appreciated 4. Awaiting for halfway facility placement 5. Strict blood pressure and blood sugar control 6. GI and DVT prophylaxis
--- NOTE | 2020-12-08 23:38 | P.PN ---
Date of Service: 12/07/20 Subjective Patient with no new changes. Patient clinical symptoms are improving. Strength has improved quite a bit. Patient continues to work with physical therapy. Review of Systems is unable to be obtained Physical Examination - Vital Signs Reviewed - Physical Exam General: Alert, In no apparent distress, Demented Respiratory: Clear to auscultation bilaterally, Normal air movement Cardiovascular: Regular rate/rhythm, Normal S1 S2, Systolic murmur Gastrointestinal: Normal bowel sounds, Soft and benign, Non-distended, No tenderness Musculoskeletal: No clubbing, No swelling, No tenderness Neurological: Normal speech; moves all extremities; strength is somewhat improved Assessment & Plan - Problems (Diagnosis) (1) Displaced fracture of left femoral neck Current Visit: Yes Status: Acute (2) Alzheimer's type dementia Current Visit: Yes Status: Acute (3) Diabetes mellitus Onset Date: 02/18/16 Current Visit: No Status: Chronic (4) Hyperlipidemia Onset Date: 02/18/16 Current Visit: No Status: Chronic (5) Hypertension Onset Date: 02/18/16 Current Visit: No Status: Chronic Qualifiers: - Plan Plan: Continue with plan of care as mentioned below 1. Continue physical therapy; strength improving 2. Patient listening to family for the most part. Still wants to get out of bed quite a bit 3. Appreciate Ortho assistance 4. Awaiting for retirement facility placement 5. Strict blood pressure and blood sugar control 6. GI and DVT prophylaxis
--- NOTE | 2020-12-08 23:42 | P.PN ---
Date of Service: 12/08/20 Subjective Patient doing well with no new complaint. at bedside with her. Patient does have multiple bruises on her upper extremity. Made need some padding on the bed. She may a lap around the whole nurses station today. Her strength continues to improve. Review of Systems is unable to be obtained Physical Examination - Vital Signs Reviewed - Physical Exam General: Alert, In no apparent distress, Demented Respiratory: Clear to auscultation bilaterally, Normal air movement Cardiovascular: Regular rate/rhythm, Normal S1 S2, Systolic murmur Gastrointestinal: Normal bowel sounds, Soft and benign, Non-distended, No tenderness Musculoskeletal: No clubbing, No swelling, No tenderness Neurological: Normal speech; moves all extremities; strength is improved Assessment & Plan - Problems (Diagnosis) (1) Displaced fracture of left femoral neck Current Visit: Yes Status: Acute (2) Alzheimer's type dementia Current Visit: Yes Status: Acute (3) Diabetes mellitus Onset Date: 02/18/16 Current Visit: No Status: Chronic (4) Hyperlipidemia Onset Date: 02/18/16 Current Visit: No Status: Chronic (5) Hypertension Onset Date: 02/18/16 Current Visit: No Status: Chronic Qualifiers: - Plan Plan: Continue with plan of care as mentioned below 1. Continue physical therapy; strength improving 2. Patient listening to family for the most part. Still wants to get out of bed quite a bit 3. Appreciate Ortho assistance 4. Awaiting for halfway facility placement 5. Strict blood pressure and blood sugar control 6. GI and DVT prophylaxis
[2020-12-09 04:29] LABS: Potassium 3.4 mmol/L (3.5-5.1)
[2020-12-09] MEDS: INSULIN -REGULAR HUMAN 50 UNIT/0.5 ML ML SQ SCH ×4 (07:30→21:30)
[2020-12-09] MEDS: KCL 20 MEQ/100 mL IVPB 20 MEQ/100 ML BAG IV SCH ×2 (07:54→10:53)
[2020-12-09] MEDS: CALCIUM CARB 500MG/VIT D 200 IU TAB PO SCH ×3 (09:00→21:00)
[2020-12-09] MEDS: ENOXAPARIN 40 MG/0.4 ML SQ SCH (09:42)
[2020-12-09] MEDS ORDERED: TRAMADOL HCL 50 MG TAB PO PRN (10:52)
[2020-12-09] MEDS ORDERED: HYDROMORPHONE HCL 0.5 MG/0.5 ML INJ IV PRN (10:52)
[2020-12-09] MEDS: LORazepam 2 MG/ML VIAL IV PRN (11:43)
[2020-12-09] MEDS ORDERED: NA CHLORIDE 0.9% 250 ML IV PRN (15:30)
[2020-12-09] MEDS ORDERED: NA CHLORIDE 0.9% 250 ML ONE (15:34)
--- NOTE | 2020-12-09 15:39 | P.PN ---
Subjective Date of Service: 12/09/20 Chief Complaint: Status post fall and left femoral neck fracture Subjective: Improving, Doing well Physical Examination - Vital Signs Temperature: 97.6 F Blood Pressure: 123/88 Pulse: 87 Respirations: 18 Pulse Ox (%): 98 - Studies Medications List Reviewed: Yes Assessment & Plan Discharge Plan: Other (nursing home facility) Plan to discharge in: 24 Hours Physician Review Additional Text: Physical Exam: GENERAL: [The patient is a well-developed, well-nourished, in no apparent distress. Alert and oriented x3.] VITAL SIGNS: [Reviewed] HEENT: [Head is normocephalic and atraumatic. Extraocular muscles are intact. Pupils are equal, round, and reactive to light and accommodation. Nares appeared normal. Mouth is well hydrated and without lesions. Mucous membranes are moist. ] NECK: [Supple. No carotid bruits. No lymphadenopathy or thyromegaly.] LUNGS: [Clear to auscultation. No crackles or wheezes are heard.] HEART: [Regular rate and rythem, no appreciable gallops, rubs, murmurs or extra heart sounds] ABDOMEN: [Soft, nontender, and nondistended. Positive bowel sounds. No hepatosplenomegaly was noted.] EXTREMITIES: [Without any cyanosis, clubbing, rash, lesions or peripheral edema.] NEUROLOGIC: [The patient is oriented to person, place and time. Strength and sensation are grossly intact. Face is symmetric.] SKIN: [Normal color, turgor and temperature. No ulcerations or rashes noted.] Impression: Left displaced femoral neck fracture status post left hip bipolar hemiarthroplasty Hypertension Hyperlipidemia Dementia Diabetes mellitus type 2 Hypothyroidism Plan: Left displaced femoral neck fracture status post left hip bipolar hemiarthroplas ty: Continue with physical therapy. Patient awaiting approval for skilled placement. Continue DVT prophylaxisLovenox. Continue to provide medication for pain. Continue with current medications. Continue to discuss with patient and family Hypertension: Restart home medication including Norvasc and ARB inhibitor. Hyperlipidemia: Continue with Zetia Dementia: Continue medication Diabetes mellitus type 2: Suspect diabetes. Will check A1c. Sliding scale in place. Hypothyroidism: Continue medication. Will check TSH Code Status: [Full Code] DVT prophylaxis: [Lovenox] Advanced Care Planning-30 minutes: Plan of care discussed with geriatric social worker. Notes reviewed. Patient awaiting approval for skilled placement. Time Spent Managing Pts Care (In Minutes): 55
[2020-12-09] MEDS ORDERED: NA CHLORIDE 0.9% 250 ML IV SCH (16:00)
[2020-12-09] MEDS: RISPERIDONE 0.25 MG TABLET PO SCH (21:20)
[2020-12-09] MEDS: EZETIMIBE 10 MG TAB PO SCH (21:20)
[2020-12-09] MEDS: TRAZODONE 50 MG TABLET PO SCH (21:21)
[2020-12-10 06:28] LABS: Thyroid Stimulating Hormone 51.6 uIU/mL (0.360-3.740)
[2020-12-10] MEDS ORDERED: LEVOTHYROXINE SOD 0.125 MG TAB PO ONE (07:00)
[2020-12-10] MEDS: HOME MED 1 EA UNK (Olmesartan Medoxomil [Olmesartan Medoxomil] 40 MG Tablet) PO SCH (09:00)
[2020-12-10] MEDS: ENOXAPARIN 40 MG/0.4 ML SQ SCH (09:00)
[2020-12-10] MEDS ORDERED: CALCITRIOL 0.5 MCG PO SCH (09:00)
[2020-12-10] MEDS: TIMOLOL OPTH SCH (09:00)
[2020-12-10] MEDS ORDERED: LEVOTHYROXINE SOD 0.112 MG TAB PO SCH (09:00)
[2020-12-10] MEDS: DONEPEZIL HCL 5 MG TAB PO SCH (09:00)
[2020-12-10] MEDS: DORZOLAMIDE 2% OPTH (10 ML) EACH EYE SCH (10:04)
[2020-12-10] MEDS: AMLODIPINE 5 MG TAB PO SCH (10:04)
[2020-12-10] MEDS: CALCITROL 0.25 MCG CAP PO SCH (10:05)
[2020-12-10] MEDS: CALCIUM CARB 500MG/VIT D 200 IU TAB PO SCH ×2 (10:05→21:50)
[2020-12-10] MEDS: INSULIN -REGULAR HUMAN 50 UNIT/0.5 ML ML SQ SCH ×4 (10:06→21:00)
--- NOTE | 2020-12-10 10:22 | P.PN ---
Subjective Date of Service: 12/10/20 Chief Complaint: Status post fall and left femoral neck fracture Subjective: Doing well Physical Examination - Vital Signs Temperature: 97.4 F Blood Pressure: 154/64 Pulse: 74 Respirations: 16 Pulse Ox (%): 99 - Studies Medications List Reviewed: Yes Assessment & Plan Discharge Plan: Other (SNF) Plan to discharge in: 24 Hours Physician Review Additional Text: Physical Exam: GENERAL: The patient is a well-developed, well-nourished, in no apparent distress. Patient alert. Patient with dementia. Sitter at bedside. VITAL SIGNS: Reviewed HEENT: Neck supple LUNGS: Clear to auscultation. No crackles or wheezes are heard. HEART: Regular rate and rhythm, no appreciable gallops, rubs, murmurs or extra heart sounds ABDOMEN: Soft, nontender, and nondistended. Positive bowel sounds. No hepatosplenomegaly was noted. EXTREMITIES: Without any cyanosis, clubbing, rash, lesions or peripheral edema. NEUROLOGIC: Patient alert. Patient with dementia. SKIN: Normal color, turgor and temperature. No ulcerations or rashes noted. Impression: Left displaced femoral neck fracture status post left hip bipolar hemiart hroplasty Hypertension Hyperlipidemia Dementia Diabetes Mellitus Type 2 with hypoglycemia Hypothyroidism Plan: Left displaced femoral neck fracture status post left hip bipolar hemiarthroplasty: Continue with physical therapy. Patient awaiting approval for skilled placement. Spoke to daughter concerning plan of care. Daughter is looking to transition to [facility] in the future. A sitter is currently there. This was provided by family. This has become very expensive. A sitter may be needed if current provider not available. Continue DVT prophylaxisLovenox. Anticipate approval to skilled facility likely in the next 24 to 48 hours. Hypertension: Continue with Norvasc and olmesartan. Hyperlipidemia: Continue with Zetia Dementia: Continue medication-Aricept. Risperidone and trazodone also added. Additional medication for agitation provided. Family has provided a sitter. This may be no longer available. If so we will have hospital provide sitter. Diabetes mellitus type 2 with hypoglycemia: Daughter expressed that the fall is likely related to hypoglycemia. Insulin has been discontinued. A1c is 8.0. Will start Metformin. Will continue to monitor sliding scale. Will adjust accordingly. Daughter reports patient needs to be off insulin in order to consider long-term care in the memory unit. Hypothyroidism: TSH and Free T4 reviewed. Will increase medication-Levoxyl 125 mcg daily. Will need to recheck TSH and free T4 in 4 to 6 weeks to monitor her progress. Code Status: Full Code DVT prophylaxis: Lovenox Advanced Care Planning-30 minutes: Plan of care discussed with daughter. Awaiting approval for skilled placement. Daughter trying to get patient to long-term care in the future. Time Spent Managing Pts Care (In Minutes): 55
[2020-12-10] MEDS: LORazepam 2 MG/ML VIAL IV PRN (12:49)
[2020-12-10] MEDS: METFORMIN HCL 500 MG TAB PO SCH (17:00)
[2020-12-10] MEDS: EZETIMIBE 10 MG TAB PO SCH (21:50)
[2020-12-10] MEDS: TRAZODONE 50 MG TABLET PO SCH (21:50)
[2020-12-10] MEDS: RISPERIDONE 0.25 MG TABLET PO SCH (21:50)
[2020-12-10] MEDS: GLUCERNA SHAKE 237 ML CAN PO SCH (21:50)
[2020-12-11] MEDS: HALOPERIDOL LACT 5 MG/ML INJ IV PRN (01:05)
[2020-12-11 06:01] LABS: Potassium 3.8 mmol/L (3.5-5.1)
[2020-12-11] MEDS: LEVOTHYROXINE SOD 0.125 MG TAB PO SCH (06:06)
[2020-12-11] MEDS: INSULIN -REGULAR HUMAN 50 UNIT/0.5 ML ML SQ SCH ×4 (08:04→20:28)
[2020-12-11] MEDS: SITAGLIPTIN PHOS 100 MG TAB PO SCH (08:58)
[2020-12-11] MEDS: METFORMIN HCL 500 MG TAB PO SCH ×2 (08:58→16:36)
[2020-12-11] MEDS: CALCITROL 0.25 MCG CAP PO SCH (08:59)
[2020-12-11] MEDS: ENOXAPARIN 40 MG/0.4 ML SQ SCH (08:59)
[2020-12-11] MEDS: DONEPEZIL HCL 5 MG TAB PO SCH (09:00)
[2020-12-11] MEDS: TIMOLOL OPTH SCH (09:00)
[2020-12-11] MEDS: AMLODIPINE 5 MG TAB PO SCH (09:00)
[2020-12-11] MEDS ORDERED: POTASSIUM 25 MEQ EFFERV TAB PO ONE (09:00)
[2020-12-11] MEDS: CALCIUM CARB 500MG/VIT D 200 IU TAB PO SCH ×2 (09:00→20:31)
[2020-12-11] MEDS: HOME MED 1 EA UNK (Olmesartan Medoxomil [Olmesartan Medoxomil] 40 MG Tablet) PO SCH (09:00)
[2020-12-11] MEDS: GLUCERNA SHAKE 237 ML CAN PO SCH ×2 (09:02→20:32)
[2020-12-11] MEDS: DORZOLAMIDE 2% OPTH (10 ML) EACH EYE SCH (10:03)
--- NOTE | 2020-12-11 13:43 | P.PN ---
Subjective Date of Service: 12/11/20 Chief Complaint: Status post fall and left femoral neck fracture Subjective: Other (got medication for agitation last night. increase sedation noted) Physical Examination - Vital Signs Temperature: 97 F Blood Pressure: 130/58 Pulse: 82 Respirations: 17 Pulse Ox (%): 98 - Studies Medications List Reviewed: Yes Assessment & Plan Discharge Plan: Other (SNF/Memory care unit) Plan to discharge in: 48 Hours Physician Review Additional Text: Physical Exam: GENERAL: The patient is a well-developed, well-nourished, in no apparent distress. Patient alert. Patient with dementia. Sitter at bedside. VITAL SIGNS: Reviewed HEENT: Neck supple LUNGS: Clear to auscultation. No crackles or wheezes are heard. HEART: Regular rate and rhythm, no appreciable gallops, rubs, murmurs or extra heart sounds ABDOMEN: Soft, nontender, and nondistended. Positive bowel sounds. No hepatosplenomegaly was noted. EXTREMITIES: Without any cyanosis, clubbing, rash, lesions or peripheral edema. NEUROLOGIC: Patient alert. Patient with dementia. SKIN: Normal color, turgor and temperature. No ulcerations or rashes noted. Impression: Left displaced femoral neck fracture status post left hip bipolar hemiarthroplasty Hypertension Hyperlipidemia Dementia Diabetes Mellitus Type 2 with hypoglycemia Hypothyroidism Plan: Left displaced femoral neck fracture status post left hip bipolar hemiarthroplasty: She got medication for agitation last night. Will DC ativan. Will provide Haldol as needed. Continue with physical therapy. Patient awaiting approval for skilled placement. Spoke to daughter concerning plan of care. Daughter is looking to transition to rodent exterminator care in the future. Continue DVT prophylaxisLovenox. Anticipate approval to skilled facility likely in the next 24 to 48 hours. Hypertension: Continue with Norvasc and olmesartan. Hyperlipidemia: Continue with Zetia Dementia: Continue medication-Aricept. Risperidone and trazodone also added. Discontinue Ativan. Will provide other medication for agitation if needed. Diabetes mellitus type 2 with hypoglycemia: Daughter expressed that the fall is likely related to hypoglycemia. Insulin has been discontinued. A1c is 8.0. Metformin started. Will also start Januvia. Will continue to monitor sliding scale. Will adjust accordingly. Daughter reports patient needs to be off insulin in order to consider long-term care in the memory unit. If insulin still required will consider low-dose basal insulin. Hypothyroidism: TSH and Free T4 reviewed. Will increase medication-Levoxyl 125 mcg daily. Will need to recheck TSH and free T4 in 4 to 6 weeks to monitor her progress. Code Status: Full Code DVT prophylaxis: Lovenox Advanced Care Planning-30 minutes: Plan of care discussed with daughter. Awaiting approval for skilled placement. Daughter trying to get patient to long-term care in the future. Time Spent Managing Pts Care (In Minutes): 55
[2020-12-11] MEDS ORDERED: D50W 25 GM/50 ML VIAL IV PRN (14:00)
[2020-12-11] MEDS: EZETIMIBE 10 MG TAB PO SCH (20:29)
[2020-12-11] MEDS: RISPERIDONE 0.25 MG TABLET PO SCH (20:29)
[2020-12-11] MEDS: TRAZODONE 50 MG TABLET PO SCH (20:30)
[2020-12-12 05:06] LABS: Potassium 3.6 mmol/L (3.5-5.1)
[2020-12-12] MEDS: LEVOTHYROXINE SOD 0.125 MG TAB PO SCH (06:02)
[2020-12-12] MEDS: METFORMIN HCL 500 MG TAB PO SCH ×3 (08:00→16:15)
[2020-12-12] MEDS: INSULIN -REGULAR HUMAN 50 UNIT/0.5 ML ML SQ SCH ×4 (08:46→20:51)
[2020-12-12] MEDS: GLUCERNA SHAKE 237 ML CAN PO SCH ×2 (08:46→21:00)
[2020-12-12] MEDS: HOME MED 1 EA UNK (Olmesartan Medoxomil [Olmesartan Medoxomil] 40 MG Tablet) PO SCH (08:47)
[2020-12-12] MEDS: TIMOLOL OPTH SCH (08:47)
[2020-12-12] MEDS: SITAGLIPTIN PHOS 100 MG TAB PO SCH ×2 (08:51→09:00)
[2020-12-12] MEDS: CALCIUM CARB 500MG/VIT D 200 IU TAB PO SCH ×3 (08:54→20:52)
[2020-12-12] MEDS: AMLODIPINE 5 MG TAB PO SCH ×2 (08:54→09:00)
[2020-12-12] MEDS: CALCITROL 0.25 MCG CAP PO SCH ×2 (08:55→09:00)
[2020-12-12] MEDS: ENOXAPARIN 40 MG/0.4 ML SQ SCH (08:55)
[2020-12-12] MEDS: DORZOLAMIDE 2% OPTH (10 ML) EACH EYE SCH (08:56)
[2020-12-12] MEDS: DONEPEZIL HCL 5 MG TAB PO SCH (09:00)
[2020-12-12] MEDS ORDERED: POTASSIUM 25 MEQ EFFERV TAB PO ONE (09:00)
[2020-12-12] MEDS ORDERED: POTASSIUM CL SA 10 MEQ TAB PO ONE (09:00)
--- NOTE | 2020-12-12 11:22 | P.PN ---
Subjective Date of Service: 12/12/20 Chief Complaint: Status post fall and left femoral neck fracture Subjective: Demented, Other (Patient doing better this morning. Less sedation noted.) Physical Examination - Vital Signs Temperature: 97.6 F Blood Pressure: 144/55 Pulse: 87 Respirations: 16 Pulse Ox (%): 97 - Studies Medications List Reviewed: Yes Assessment & Plan Discharge Plan: Other ([facility] facility) Plan to discharge in: 24 Hours Physician Review Additional Text: Physical Exam: GENERAL: Patient with underlying dementia. Patient resting in bed. VITAL SIGNS: Reviewed HEENT: Neck supple LUNGS: Clear to auscultation. No crackles or wheezes are heard. HEART: Regular rate and rhythm, no appreciable gallops, rubs, murmurs or extra heart sounds ABDOMEN: Soft, nontender, and nondistended. Positive bowel sounds. No hepatosplenomegaly was noted. EXTREMITIES: Without any cyanosis, clubbing, rash, lesions or peripheral edema. NEUROLOGIC: Patient with dementia. Patient resting in bed. Slight sedation noted. SKIN: Normal color, turgor and temperature. No ulcerations or rashes noted. Impression: Left displaced femoral neck fracture status post left hip bipolar hemiarthroplasty Hypertension Hyperlipidemia Dementia Diabetes Mellitus Type 2 with hypoglycemia Hypothyroidism Plan: Left displaced femoral neck fracture status post left hip bipolar hemiarthroplasty: We will discontinue Haldol. Ativan was discontinued. We will try to limit medication for sedation or agitation. Encourage ambulation with physical therapy. Awaiting approval for skilled placement. Social work working to facilitate a transfer to skilled facility with memory unit. Case discussed with daughter on plan of care yesterday. Continue DVT prophylaxisLovenox. Anticipate approval to skilled facility likely in the next 24 to 48 hours. Hypertension: Continue with Norvasc and olmesartan. Hyperlipidemia: Continue with Zetia Dementia: Continue medication-Aricept. Risperidone and trazodone also added. Haldol and Ativan has been discontinued. Limit any medication for agitation as this will increase sedation. Diabetes mellitus type 2 with hypoglycemia: Daughter expressed that the fall is likely related to hypoglycemia. Insulin has been discontinued. A1c is 8.0. Continue Metformin and Januvia. Will continue to monitor sliding scale. Will adjust accordingly. Daughter reports patient needs to be off insulin in order to consider long-term care in the memory unit. If insulin still required will consider low-dose basal insulin. Hypothyroidism: TSH and Free T4 reviewed.Levoxyl 125 mcg daily has been adjusted.. Will need to recheck TSH and free T4 in 4 to 6 weeks to monitor her progress. Code Status: Full Code DVT prophylaxis: Lovenox Advanced Care Planning-30 minutes: Plan of care discussed with daughter. Awaiting approval for skilled placement. Daughter trying to get patient to long-term care in the future. Time Spent Managing Pts Care (In Minutes): 55
[2020-12-12] MEDS: ACETAMINOPHEN 500 MG TAB PO PRN ×2 (11:39→16:15)
[2020-12-12] MEDS: TRAZODONE 50 MG TABLET PO SCH (20:51)
[2020-12-12] MEDS: EZETIMIBE 10 MG TAB PO SCH (20:52)
[2020-12-12] MEDS: RISPERIDONE 0.25 MG TABLET PO SCH (20:52)
[2020-12-13] MEDS: LEVOTHYROXINE SOD 0.125 MG TAB PO SCH (06:04)
[2020-12-13 06:07] LABS: BUN Blood Urea Nitrogen 20 mg/dL (7-18); Bicarbonate 29 mmol/L (21-32); Glucose Level 306 mg/dL (74-106); Potassium 3.9 mmol/L (3.5-5.1); Sodium Level 137 mmol/L (136-145)
[2020-12-13] MEDS ORDERED: POTASSIUM CL SA 10 MEQ TAB PO ONE ×2 (07:26→12:45)
[2020-12-13 08:48] VITALS: TEMP 96.6; O2SAT 98
[2020-12-13] MEDS: TIMOLOL OPTH SCH (09:00)
[2020-12-13] MEDS: ENOXAPARIN 40 MG/0.4 ML SQ SCH (09:00)
[2020-12-13] MEDS: AMLODIPINE 5 MG TAB PO SCH (09:00)
[2020-12-13] MEDS: DONEPEZIL HCL 5 MG TAB PO SCH (09:00)
[2020-12-13] MEDS ORDERED: POTASSIUM 25 MEQ EFFERV TAB PO ONE (09:00)
[2020-12-13] MEDS: GLUCERNA SHAKE 237 ML CAN PO SCH (09:00)
[2020-12-13] MEDS: HOME MED 1 EA UNK (Olmesartan Medoxomil [Olmesartan Medoxomil] 40 MG Tablet) PO SCH (09:00)
[2020-12-13] MEDS: INSULIN -REGULAR HUMAN 50 UNIT/0.5 ML ML SQ SCH ×2 (09:00→12:46)
[2020-12-13] MEDS: DORZOLAMIDE 2% OPTH (10 ML) EACH EYE SCH (09:17)
[2020-12-13 12:06] VITALS: BP 111/49
[2020-12-13] MEDS: METFORMIN HCL 500 MG TAB PO SCH (12:45)
[2020-12-13] MEDS: SITAGLIPTIN PHOS 100 MG TAB PO SCH (12:45)
[2020-12-13] MEDS: CALCITROL 0.25 MCG CAP PO SCH (12:45)
[2020-12-13] MEDS: CALCIUM CARB 500MG/VIT D 200 IU TAB PO SCH (12:45)
--- NOTE | 2020-12-13 12:52 | P.PN ---
Subjective Date of Service: 12/13/20 Chief Complaint: Status post fall and left femoral neck fracture Subjective: Demented, Other (Patient stable this time. No need for medication for agitation Overnite.) Physical Examination - Vital Signs Temperature: 96.6 F Blood Pressure: 111/49 Pulse: 73 Respirations: 18 Pulse Ox (%): 100 - Studies Medications List Reviewed: Yes Assessment & Plan Discharge Plan: [facility] ([facility] Plan to discharge in: 24 Hours Physician Review Additional Text: Physical Exam: GENERAL: Patient with underlying dementia. Advanced dementia noted Patient resting in bed. Patient alert. VITAL SIGNS: Reviewed HEENT: Neck supple LUNGS: Clear to auscultation. No crackles or wheezes are heard. HEART: Regular rate and rhythm, no appreciable gallops, rubs, murmurs or extra heart sounds ABDOMEN: Soft, nontender, and nondistended. Positive bowel sounds. No hepatosplenomegaly was noted. EXTREMITIES: Without any cyanosis, clubbing, rash, lesions or peripheral edema. NEUROLOGIC: Patient with dementia. Patient resting in bed. SKIN: Normal color, turgor and temperature. No ulcerations or rashes noted. Impression: Left displaced femoral neck fracture status post left hip bipolar hemiarthroplasty Hypertension Hyperlipidemia Dementia Diabetes Mellitus Type 2 with hypoglycemia Hypothyroidism Plan: Left displaced femoral neck fracture status post left hip bipolar hemiarthroplasty: Patient did not require any medication for agitation. Haldol and Ativan has been discontinued. Continue with medication for dementia. Continue with physical therapy. Patient awaiting approval for skilled placement. Placement will be to a facility that has a memory unit. Continue DVT prophylaxis-Lovenox. Anticipate approval soon. Family plans to transition patient to long-term care with memory unit in the future. Hypertension: Continue with Norvasc and olmesartan. Hyperlipidemia: Continue with Zetia Dementia: Continue medication-Aricept. Risperidone and trazodone also added. Haldol and Ativan has been discontinued. Limit any medication for agitation as this will increase sedation. Diabetes mellitus type 2 with hypoglycemia: Daughter expressed that the fall is likely related to hypoglycemia. Insulin has been discontinued. A1c is 8.0. Will increase metformin and Januvia for better diabetic control. Sliding scale in place. Monitor closely. Hopefully this will suffice as the patient will be transition to skilled placement and memory unit. Would recommend not using long acting insulin at this time. Hypothyroidism: TSH and Free T4 reviewed.Levoxyl 125 mcg daily has been adjusted.. Will need to recheck TSH and free T4 in 4 to 6 weeks to monitor her progress. Code Status: Full Code DVT prophylaxis: Lovenox Advanced Care Planning-30 minutes: Plan of care discussed with daughter. Awaiting approval for skilled placement. Daughter trying to get patient to long-term care in the future. Time Spent Managing Pts Care (In Minutes): 55
--- NOTE | 2020-12-13 13:30 | P.DS ---
Admission Date: 12/03/20 Discharge Date: 12/13/20 Primary Care Provider: Dr. Gilman Disposition: ROUTINE DISCHARGE Discharge Condition: GOOD Reason for Admission: Status post fall and left femoral neck fracture Consultations: Orthopedics-Dr. Leonard Procedures: COVID: Negative Hip Xray: COMPARISON: No comparisons FINDINGS: AP and frogleg views of the left hip were obtained. Transverse fracture through the left femoral neck is present near the subcapital region. Pathologic component is not suspected. There is impaction of the medial margin of the neck fragment into the base of the femoral head. No dislocation of the femoral head from the acetabulum. No AVN of femoral head seen. No pathologic changes to the left hemipelvis. No rami fractures confirmed. No significant soft tissue finding IMPRESSION: Left femoral neck fracture as detailed. Surgery: Date of Procedure: 12/04/2020 Surgeon: Luis Angel Leonard MD Preoperative Diagnosis: Left displaced femoral neck fracture. Postoperative Diagnosis: Left displaced femoral neck fracture. Procedure: Left hip bipolar hemiarthroplasty using the [place] cemented system. Estimated Blood Loss: 150 cc. Complications: None. Medical Problem List: Left displaced femoral neck fracture status post left hip bipolar hemiarthroplasty Hypertension Hyperlipidemia Dementia Diabetes Mellitus Type 2 with hypoglycemia/hyperglycemia Hypothyroidism Postoperative anemia Brief History of Present Illness: 84-year-old Caucasion female who came to the hospital after suffering a fall. She lost her balance and suffered a left femoral neck fracture. Patient was admitted to the hospital for further evaluation. Patient with multiple comorbidities including hypertension and diabetes. Patient denies any chest pain or shortness of breath. Patient does have a history of dementia. She is at Alzheimer's dementia. Spoke with family and they are wanting to proceed with surgery. Risks and benefits were explained. Patient admitted for treatment. Hospital Course: Patient presented with a fall. Patient found to have a left displaced femoral neck fracture. Patient was admitted for further evaluation and treatment. Patient was seen and evaluated by surgery. Surgical intervention was recommended. Surgical intervention was performed. Left hip bipolar hemiarthroplasty was performed. Patient received physical therapy thereafter. Patient continue to do well. Due to her dementia skilled facility was recommended. Patient was accepted to go to a skilled facility with a memory unit due to her dementia. Patient accepted. At discharge the patient will continue with physical therapy at the care home. Patient may continue with Lovenox 40 mg subcu daily for at least 7 more days. Patient will continue with physical therapy as recommended by Orthopedics. Orthopedics recommends to remove tear after 2 weeks from surgery. Recommend follow up with orthopedics in the next 2 weeks to follow up this hospitalization and continue her care. Fall precautions in place. Case discussed in detail with family who agrees with plan of care. Family will readdress advanced directives while at the skilled facility. Patient has PCP in [place] (formerly [facility]). Family is looking to find a local PCP in the area to continue her care. I was able to get her connected with Dr. [place] who plans to follow up with the family and likely continue care. Patient with hypertension. This appears stable. At discharge patient will continue with home losartan 40 mg daily and Norvasc 5 mg daily. Recommend to maintain blood pressure less than 130/80. Further adjustment can be done by her PCP. Patient with hyperlipidemia. At discharge patient will continue with Zetia 10 mg daily. Patient with diabetes mellitus type 2 with fluctuating blood sugars. Patient previously on Lantus. Lantus was discontinued due to increase risk of hypoglycemia which may have contributed to her fall. A1c 8.0. Patient transition tube metformin and Januvia. At discharge patient will continue with metformin at 1000 mg 1 pill twice daily and Januvia 50 mg daily. Recommend to monitor blood sugars at least twice daily. Recommend to maintain blood sugar less than 140 fasting and less than 200 after meals. Further adjustment can be done by her blood sugars remain above 200 further adjustment may be required. Recommend follow up with PCP in 1 week to follow up this hospitalization and continue to monitor her diabetes closely. Patient with hypothyroidism. Medication was adjusted during the course of her stay. Levoxyl was increased to 125 mcg daily. Recommend to recheck tsh and free T4 in 4-6 weeks to monitor her progress. Further adjustment may be required. This can be done with the help of her PCP. Patient with postoperative anemia. This has remained stable. Will recommend to continue multi vitamin daily and thiamine 100 mg daily. Recommend to recheck CBC in 1-2 weeks to monitor her progress. Patient with advanced dementia. At discharge patient will continue with Aricept 5 mg daily. Patient also takes Risperdal 0.5 mg at bedtime and trazodone 50 mg at bedtime. Consider further adjustment if with increase sedation. Patient will continue at the skilled facility at the [facility]. Family is looking to consider long-term care for the patient if her condition worsens. Other options would include possible hospice. Spoke with family in detail concerning advanced directives. Family will talk with other family members. They will readdress advanced directives and possible long-term plan care for the patient in the near future. Vital Signs/Physical Exam: Temp Pulse Resp BP Pulse Ox 96.6 F L 73 18 111/49 L 100 12/13/20 12:52 12/13/20 12:52 12/13/20 12:52 12/13/20 12:52 12/13/20 12:52 General: Alert, Demented HEENT: Atraumatic Neck: Supple Respiratory: Clear to auscultation bilaterally Cardiovascular: Normal pulses, Regular rate/rhythm Gastrointestinal: Normal bowel sounds, No tenderness, No masses, No rebound, No guarding Integumentary: No tenderness/swelling Laboratory Data at Discharge: WBC 11.00 K/uL (4.3-10.9) H 12/05/20 05:05 Hgb 8.9 g/dL (12.0-15.0) L 12/05/20 05:05 Hct 26.8 % (36.0-45.0) L D 12/05/20 05:05 Plt Count 170 K/uL (152-406) D 12/05/20 05:05 PT 15.7 SECONDS (9.5-12.5) H 12/04/20 05:37 INR 1.36 12/04/20 05:37 APTT 24.9 SECONDS (24.3-36.9) 12/04/20 05:37 Sodium 137 mmol/L (136-145) 12/13/20 05:19 Potassium 3.9 mmol/L (3.5-5.1) 12/13/20 05:19 BUN 20 mg/dL (7-18) H 12/13/20 05:19 Creatinine 0.62 mg/dL (0.55-1.3) 12/13/20 05:19 Glucose 306 mg/dL (74-106) H 12/13/20 05:19 Magnesium 1.9 mg/dL (1.8-2.4) 12/04/20 05:37 Total Bilirubin 0.8 mg/dL (0.2-1.0) 12/04/20 05:37 AST 38 U/L (15-37) H 12/04/20 05:37 ALT 22 U/L (12-78) 12/04/20 05:37 Alkaline Phosphatase 68 U/L (45-117) 12/04/20 05:37 Home Medications: Amlodipine [Norvasc*] 5 mg PO DAILY 12/03/20 Calcitriol [Rocaltrol] 0.25 mcg PO DAILY 12/03/20 Donepezil [Aricept*] 10 mg PO DAILY 12/03/20 Dorzolamide [Trusopt 2%*] 2 drops EACH EYE DAILY 12/03/20 Ezetimibe 10 mg PO BEDTIME 12/03/20 Olmesartan Medoxomil 40 mg PO DAILY 12/03/20 Timolol [Betimol] 2 drops LEFT EYE DAILY 12/03/20 Trazodone [Desyrel*] 50 mg PO 30 MIN BEFORE HS 12/03/20 Calcium Carbonate/Vitamin D3 [Oscal 500 + Vit D 200 Iu Tab*] 1 tab PO BID #60 tab 12/13/20 Enoxaparin Sodium [Lovenox 40 MG INJ*] 40 mg SQ DAILY #7 syr 12/13/20 Levothyroxine [Synthroid*] 0.125 mg PO DAILYAC #30 tab 12/13/20 Metformin HCl 1,000 mg PO BID #60 tablet 12/13/20 Multivit with Iron,Minerals [Complete Senior] 1 each PO DAILY #90 tablet 12/13/20 Sitagliptin Phosphate [Januvia] 50 mg PO DAILY #90 tablet 12/13/20 Thiamine HCl 100 mg PO DAILY #90 tablet 12/13/20 risperiDONE [Risperdal 0.25 MG TAB*] 0.5 mg PO BEDTIME #60 tab 12/13/20 New Medications: Multivit with Iron,Minerals [Complete Senior] 1 each PO DAILY #90 tablet Sitagliptin Phosphate [Januvia] 50 mg PO DAILY #90 tablet Enoxaparin Sodium [Lovenox 40 MG INJ*] 40 mg SQ DAILY #7 syr Metformin HCl 1,000 mg PO BID #60 tablet Calcium Carbonate/Vitamin D3 [Oscal 500 + Vit D 200 Iu Tab*] 1 tab PO BID #60 tab risperiDONE [Risperdal 0.25 MG TAB*] 0.5 mg PO BEDTIME #60 tab Levothyroxine [Synthroid*] 0.125 mg PO DAILYAC #30 tab Thiamine HCl 100 mg PO DAILY #90 tablet Physician Discharge Instructions: Patient presented with a fall. Patient found to have a left displaced femoral neck fracture. Patient was admitted for further evaluation and treatment. Patient was seen and evaluated by surgery. Surgical intervention was recommended. Surgical intervention was performed. Left hip bipolar hemiarthroplasty was performed. Patient received physical therapy thereafter. Patient continue to do well. Due to her dementia skilled facility was [facility]. Patient was accepted to go to a skilled facility with a memory unit due to her dementia. Patient accepted. At discharge the patient will continue with physical therapy at the care home. Patient may continue with Lovenox 40 mg subcu daily for at least 7 more days. Patient will continue with physical therapy as recommended by Orthopedics. Orthopedics recommends to remove tera after 2 weeks from surgery. Recommend follow up with orthopedics in the next 2 weeks to follow up this hospitalization and continue her care. Fall precautions in place. Case discussed in detail with family who agrees with plan of care. Family will readdress advanced directives while at the skilled facility. Patient has PCP in [place] (formerly [facility]). Family is looking to find a local PCP in the area to continue her care. I was able to get her connected with Dr. [place] who plans to follow up with the family and likely continue care. Patient with hypertension. This appears stable. At discharge patient will continue with home losartan 40 mg daily and Norvasc 5 mg daily. Recommend to maintain blood pressure less than 130/80. Further adjustment can be done by her PCP. Patient with hyperlipidemia. At discharge patient will continue with Zetia 10 mg daily. Patient with diabetes mellitus type 2 with fluctuating blood sugars. Patient previously on Lantus. Lantus was discontinued due to increase risk of hypoglycemia which may have contributed to her fall. A1c 8.0. Patient transition tube metformin and Januvia. At discharge patient will continue with metformin at 1000 mg 1 pill twice daily and Januvia 50 mg daily. Recommend to monitor blood sugars at least twice daily. Recommend to maintain blood sugar less than 140 fasting and less than 200 after meals. Further adjustment can be done by her blood sugars remain above 200 further adjustment may be required. Recommend follow up with PCP in 1 week to follow up this hospitalization and continue to monitor her diabetes closely. Patient with hypothyroidism. Medication was adjusted during the course of her stay. Levoxyl was increased to 125 mcg daily. Recommend to recheck tsh and free T4 in 4-6 weeks to monitor her progress. Further adjustment may be required. This can be done with the help of her PCP. Patient with postoperative anemia. This has remained stable. Will recommend to continue multi vitamin daily and thiamine 100 mg daily. Recommend to recheck CBC in 1-2 weeks to monitor her progress. Patient with advanced dementia. At discharge patient will continue with Aricept 5 mg daily. Patient also takes Risperdal 0.5 mg at bedtime and trazodone 50 mg at bedtime. Consider further adjustment if with increase sedation. Patient will continue at the skilled facility at the [facility]. Family is looking to consider long-term care for the patient if her condition worsens. Other options would include possible hospice. Spoke with family in detail concerning advanced directives. Family will talk with other family members. They will readdress advanced directives and possible long-term plan care for the patient in the near future. Diet: ADA Activity: Fall precautions Followup: NONE,NONE [Primary Care Provider] - Time spent managing pt's care (in minutes): 55
[2020-12-13 15:36] LABS: Ferritin 177.1 ng/mL (8-388)
[2020-12-13] MEDS ORDERED: METFORMIN HCL 500 MG TAB PO SCH (17:00)
[2020-12-14] MEDS ORDERED: SITAGLIPTIN PHOS 100 MG TAB PO SCH (09:00)
== END 2020-12-13 15:27 | DRG 522 ==
LOC: ER 06:00 → ERHOLD 09:43 → 2ND 16:30
PROVIDERS: ADMIT Hospitalist; ATTEND Family Medicine
PROC: 0SRS0J9 Replacement of Left Hip Joint, Femoral Surface with Synthetic Substitute, Cemented, Open Approach (ICD-10-PCS; principal; 2020-12-04 13:30)
DX: S72.012A Unspecified intracapsular fracture of left femur, initial encounter for closed fracture (principal); G30.9 Alzheimer's disease, unspecified; F02.80 Dementia in other diseases classified elsewhere, unspecified severity, without behavioral disturbance, psychotic disturbance, mood disturbance, and anxiety; E78.5 Hyperlipidemia, unspecified; E03.9 Hypothyroidism, unspecified; D64.9 Anemia, unspecified; E11.649 Type 2 diabetes mellitus with hypoglycemia without coma; I10 Essential (primary) hypertension; W18.30XA Fall on same level, unspecified, initial encounter; Z88.5 Allergy status to narcotic agent; Z88.0 Allergy status to penicillin; Z79.84 Long term (current) use of oral hypoglycemic drugs; Z86.73 Personal history of transient ischemic attack (TIA), and cerebral infarction without residual deficits; Z79.899 Other long term (current) drug therapy; Z79.890 Hormone replacement therapy; Z87.891 Personal history of nicotine dependence; Z20.822 Contact with and (suspected) exposure to COVID-19
CPT/HCPCS: 36415; 51702; 71045; 80048; 80053; 80076; 82607; 82728; 82947; 83036; 83540; 83735; 83880; 84132; 84439; 84443; 84466; 84484; 85025; 85610; 85730; 88305; 88311; 93005; 97110; 97112; 97116; 97162; 97165; 97530; 99285; J0360; J0610; J0690; J1170; J1630; J1650; J2175; J2250; J2405; J2704; J2710; J3010; J3480; J3486; J7030; J7050; U0003

== ENCOUNTER 2020-12-17 09:10 | Inpatient (IN) | payer OTHER ==
[2020-12-17 09:55] LABS: Arterial Blood Carboxyhemoglob 1.3 % (0-1.5); Blood Gas Oxyhemoglobin 97.7 % (94-97)
[2020-12-17] MEDS ORDERED: INSULIN -REGULAR HUMAN 50 UNIT/0.5 ML ML ONE (09:57)
--- NOTE | 2020-12-17 10:11 | RAD REPORT ---
EXAM DESCRIPTION: [facility] Single View12/17/2020 10:00 am CLINICAL HISTORY: Shortness of breath COMPARISON: December 03, 2020 FINDINGS: The lungs appear clear of acute infiltrate. The heart is normal size IMPRESSION: No acute abnormalities displayed
[2020-12-17] MEDS ORDERED: NA CHLORIDE 0.9% 500 ML ONE ×4 (10:15→22:42)
--- NOTE | 2020-12-17 10:35 | RAD REPORT ---
EXAM DESCRIPTION: CT - Head Brain Wo Cont - 12/17/2020 10:11 am CLINICAL HISTORY: Alteration of awareness/confusion COMPARISON: 2015 TECHNIQUE: Computed axial tomography of the head was obtained. IV contrast was not requested. All CT scans are performed using dose optimization technique as appropriate and may include automated exposure control or mA/KV adjustment according to patient size. FINDINGS: An intracranial bleed is not seen . The ventricles are normal in caliber. No extra-axial fluid collection is noted. Diffuse cerebral atrophy Fluid within the sinuses/ mastoids is not seen. IMPRESSION: No acute intracranial abnormality is seen. If patient's symptoms persist MRI of the bra in would be recommended.
[2020-12-17 10:53] LABS: Absolute Lymphocytes (CBC) 0.6 K/uL (0.7-4.9); Basophils % 0.2 % (0-1.3); Hematocrit 29.1 % (36.0-45.0); Lymphocytes % 4.7 % (15.3-44.8); RBC Red Blood Cell Count 3.03 M/uL (3.86-4.86)
[2020-12-17 10:54] LABS: Urine Blood Negative (Negative); Urine Glucose 3+ (Negative); Urine Protein Negative (Negative); Urine Specific Gravity <=1.005 (1.005-1.030)
[2020-12-17 11:31] LABS: ALT/SGPT 23 U/L (12-78); AST/SGOT 13 U/L (15-37); Alkaline Phosphatase 87 U/L (45-117); BUN Blood Urea Nitrogen 61 mg/dL (7-18); Bicarbonate 24 mmol/L (21-32); Bilirubin Direct 0.1 mg/dL (0-0.2); Bilirubin Total 0.3 mg/dL (0.2-1.0); Magnesium 2.7 mg/dL (1.8-2.4); NT PRO-BNP 972 pg/mL (<450); Potassium 3.4 mmol/L (3.5-5.1); Protein, Total 6.8 g/dL (6.4-8.2); Sodium Level 145 mmol/L (136-145); Troponin (Emerg Dept Use Only) < 0.02 ng/mL (0.0-0.045)
[2020-12-17 11:33] LABS: Glucose Level 701 mg/dL (74-106)
[2020-12-17 11:52] LABS: Blood Morphology Comment NOT SEEN (NOT SEEN); Platelet Estimate INCR; White Blood Cell Scan OK (OK)
[2020-12-17] MEDS ORDERED: NOREPINEPHRINE 4mg/D5W 250mL 4 MG/250 ML BAG IV ONE (12:07)
[2020-12-17 13:01] LABS: Urine Bacteria <20 /HPF (<20); Urine RBC <5 /HPF (NONE SEEN)
--- NOTE | 2020-12-17 13:11 | ER ---
Nurse's Notes [facility] Name: Lana Yang Age: 84 yrs Sex: Female : 1935 Arrival Date: 12/17/2020 Time: 09:13 Bed 4 Private MD: Diagnosis: Hyperglycemia, unspecified;Altered mental status, unspecified Presentation: 12/17 09:06 Risk Assessment: Do you want to hurt yourself or someone else? Patient reports no ld1 desire to harm self or others. Onset of symptoms was December 17, 2020. 09:06 Acuity: FATEMEH 2 ld1 09:06 Method Of Arrival: EMS: [facility] ld1 09:06 Chief complaint: EMS states: called out by [facility] staff for pt being ld1 unresponsive. Around 0730 BS-HIGH, no meds given and unable to get a BP. About an hour later BS checked again and was HIGH Novolog given. O2 sat in the 70s, hypotensive. 100% NRB placed and NS bolus started. 18G L FA. 09:06 Initial Sepsis Screen: Does the patient meet any 2 criteria? No. Patient's initial sv sepsis screen is negative. Does the patient have a suspected source of infection? No. Patient's initial sepsis screen is negative. 10:15 Coronavirus screen: At this time, unable to obtain information related to travel ld1 outside the [place] Ebola Screen: Unable to complete the Ebola screening because: The patient is disoriented. Historical: - Allergies: 10:11 Codeine; ld1 10:11 PENICILLINS; ld1 - Home Meds: 11:41 amlodipine 5 mg oral tab [Active]; Aricept 10 mg Oral tab 1 tab once daily [Active]; ld1 Lovenox 40 mg/0.4 mL Sub-Q syrg once daily [Active]; ezetimibe 10 mg bedtime Oral [Active]; Januvia 50 mg oral tab once daily [Active]; Lantus 100 unit/mL Sub-Q soln 10 tab nightly [Active]; levothyroxine 125 mcg oral tab once daily [Active]; metformin 1,000 mg Oral tab 1 tab 2 times per day [Active]; multivitamin oral tab daily [Active]; olmesartan oral 40 mg daily oral [Active]; oscal 500/200 D-3 1 tab BID [Active]; risperidone 0.5 mg oral tab nightly [Active]; thiamine HCl (vitamin B1) 100 mg Oral tab daily [Active]; timolol maleate gel forming soln 0.5% 2 drops left eye bedtime [Active]; trazodone 50 mg Oral tab nightly [Active]; - PMHx: 10:11 Diabetes - IDDM; High Cholesterol; Hypertension; Hypothyroidism; TIA; Dementia; ld1 Hyperlipidemia; insomnia; Cataracts; Glaucoma; - PSHx: 10:11 Thyroidectomy; LUMPECTOMY L BREAST; LASER EYE SURGERY; L femur fx; ld1 - Immunization history:: Adult Immunizations unknown. - Social history:: Smoking status: unknown. Screenin:15 Abuse screen: unknown. Nutritional screening: No deficits noted. Tuberculosis ld1 screening: No symptoms or risk factors identified. Fall Risk No fall in past 12 months (0 pts). Secondary diagnosis (15 points) dementia, IV access (20 points). Ambulatory Aid- None/Bed Rest/Nurse Assist (0 pts). Gait- Normal/Bed Rest/Wheelchair (0 pts) Mental Status- Overestimates/Forgets Limitations (15 pts.). Total Ng Fall Scale indicates High Risk Score (45 or more points). Fall prevention measures have been instituted. Side Rails Up X 2 Placed Close to Nursing Station Frequent Obs/Assessments Occuring Family Present and informed to notify staff if the need to leave the bedside As available patient and family educated on Fall Prevention Program and Strategies. Assessment: 09:30 General: Appears in no apparent distress. comfortable, slender, Behavior is calm, ld1 cooperative. 09:30 Pain: Unable to use pain scale. Patient is disoriented. Neuro: Level of Consciousness ld1 is awake, Oriented to person. Neuro: no tracking noted on eyes.. Cardiovascular: Capillary refill < 3 seconds. Respiratory: Airway is patent Respiratory effort is even, labored, Respiratory pattern is regular, symmetrical. Respiratory: GI: Abdomen is flat, non-distended. GI: : : No signs and/or symptoms were reported regarding the genitourinary system. EENT: EENT:. Derm: No signs and/or symptoms reported regarding the dermatologic system. Musculoskeletal: No signs and/or symptoms reported regarding the musculoskeletal system. 10:44 Reassessment: Patient appears in no apparent distress at this time. No changes from ld1 previously documented assessment. Laying in bed with family at bedside. RR 14. 11:30 Reassessment: No changes from previously documented assessment. ERP notified of VS. See ld1 SEP for orders. 12:00 Reassessment: ERP at bedside. ld1 13:20 Reassessment: Patient appears in no apparent distress at this time. No changes from ld1 previously documented assessment. Pt AA0x0, no signs of distress at this time. at bedside. 14:04 Reassessment: No changes from previously documented assessment. Patient laying in bed. ld1 No signs of distress. RR 15. Vital Signs: 09:06 BP 90 / 36; Pulse 83; Resp 16; Temp 98.7(O); Pulse Ox 100% ; ld1 09:30 BP 94 / 38; Pulse 84; Resp 16; Pulse Ox 100% ; ld1 09:48 BP 89 / 39; Pulse 80; Resp 17; Pulse Ox 98% ; ld1 10:11 Height 5 ft. 3 in. (160.02 cm); ld1 10:44 BP 92 / 45; Pulse 76; Resp 19; Pulse Ox 98% on R/A; ld1 11:20 BP 71 / 30; Pulse 65; Resp 17; Pulse Ox 95% on R/A; ld1 12:00 BP 83 / 32; Pulse 66; Resp 16; Pulse Ox 98% on R/A; ld1 12:30 BP 85 / 32; Pulse 66; Resp 16; Pulse Ox 98% on R/A; ld1 13:00 BP 96 / 34; Pulse 68; Resp 14; Pulse Ox 99% on R/A; ld1 13:30 BP 98 / 42; Pulse 69; Resp 15; Pulse Ox 98% on R/A; ld1 14:04 BP 113 / 88; Pulse 72; Resp 17; Pulse Ox 99% on R/A; ld1 ED Course: 09:10 Patient has correct armband on for positive identification. Placed in gown. Bed in low ld1 position. Call light in reach. Side rails up X2. secured entrance monitor on. Pulse ox on. NIBP on. Door closed. Warm blanket given. Head of bed elevated. 09:10 Arm band placed on. ld1 09:10 Maintain EMS IV. Dressing intact. Site clean \T\ dry. Gauge \T\ site: 18G L FA. ld 1 09:13 Patient arrived in ED. ds1 09:13 Vlad Richards PA is PHCP. jmm 09:13 Hardy Masterson MD is Attending Physician. jmm 09:20 Missed attempt(s): 20 gauge in right forearm. Bleeding controlled, band aid applied, ld1 catheter tip intact. 09:23 Maday Che is Primary Nurse. kg 09:30 Inserted saline lock: 20 gauge in left forearm, using aseptic technique. Blood ld1 collected. Flushed left forearm with 5 ml normal saline. 09:30 Inserted saline lock: 20 gauge in left forearm, using aseptic technique. Blood ld1 collected. 09:53 Buffy Langley, STEPHIE is Primary Nurse. ld1 10:00 XRAY Chest (1 view) In Process Unspecified. EDMS 10:09 Triage completed. ld1 10:10 CT Head Brain wo Cont In Process Unspecified. EDMS 10:13 Patient moved back from CT. ld1 10:32 Silva cath inserted, using sterile technique, 16 Fr., by dress shoe inspector, balloon inflated, to ld1 gravity drainage, returned clear yellow urine. 13:10 Jem Munoz MD is Hospitalizing Provider. jm 13:30 Assisted provider with central line placement. Set up central line tray. Triple lumen sv line placed in right femoral. Line placed by Hardy Masterson MD Placement verified by blood return, Dressed with Tegaderm, Patient tolerated well. Before procedure, did Practitioner(s) obtain informed consent? No. Patient \T\ family education about procedure, CLABSI prevention and S/S of infection? No. Time-out/Briefing performed prior to start of procedure? Yes. Was handwashing/sanitizing done immediately prior to procedure? Yes. Was patient positioned to in a way to prevent air embolism? Yes. Was procedure site sterilized? Yes, with chlorhexidine. Was the site allowed to dry? Yes. Was local anesthetic and/or sedation utilized? Yes. During the procedure, did the Practitioner(s) maintain a sterile field? Yes. Were unused ports clamped during insertion? Yes. Was a 2nd qualified MD obtained after 3 unsuccessful insertion attempts? No. Was blood aspirated from each lumen? After the procedure, did the Practitioner(s) clean the site and apply a sterile dressing? Yes. 14:07 CT Stone Protocol Sent. sv 14:09 Urine Microscopic Only Sent. sv 15:04 Chem 7 Sent. ld1 18:40 Patient admitted, IV remains in place. intact. sv Administered Medications: 09:43 Drug: Insulin Regular Human 10 units {Co-Signature: sv (Barbara Duncan RN).} Route: ld1 IVP; Site: left forearm; 10:30 Follow up: Response: Blood sugar is unchanged ld1 09:44 Drug: NS 0.9% 1000 ml Route: IV; Rate: 1 bolus; Site: left forearm; ld1 10:46 Follow up: Response: No adverse reaction; IV Status: Completed infusion ld1 10:05 Drug: NS 0.9% 500 ml Route: IV; Rate: bolus; Site: left forearm; ld1 10:47 Follow up: Response: No adverse reaction; IV Status: Completed infusion ld1 13:14 Not Given (Physician Discretion): NS 0.9% 1000 ml IV at 1 bolus Per protocol; 1000 mL ld1 bolus 13:25 Drug: Potassium Chloride 20 mEq Route: IV; Rate: per protocol; Site: right femoral; ld1 13:40 Follow up: Response: No adverse reaction; IV Status: Completed infusion ld1 13:25 Drug: NS 0.9% 500 ml Route: IV; Rate: bolus; Site: right femoral; ld1 14:15 Follow up: Response: No adverse reaction; IV Status: Completed infusion ld1 13:25 Drug: NS 0.9% 1000 ml Route: IV; Rate: 125 ml/hr; Site: right femoral; ld1 15:03 Follow up: Response: No adverse reaction; IV Status: Infusion continued ld1 13:50 Drug: Rocephin (cefTRIAXone) 1 grams Route: IV; Rate: per protocol; Site: right femoral;ld1 13:55 Follow up: Response: No adverse reaction; IV Status: Completed infusion ld1 13:55 Drug: Insulin Drip - (Insulin Regular Human 100 units, NS 0.9% 100 ml) {Co-Signature: ld1 sv (Barbara Duncan RN).} {Note: Started at 6 Units/hr per Dr. Masterson.} Route: IV; Rate: 4 units/hr; Site: right femoral; 15:02 Follow up: Response: Blood sugar is lowered; IV Status: Infusion continued ld1 15:05 Follow up: Response: No adverse reaction; Rate change 4 units/hr ld1 Outcome: 13:10 Decision to Hospitalize by Provider. [facility] 18:40 Admitted to ER Hold. Please see [facility] for further documentation. sv 18:40 Condition: stable 18:40 Instructed on the need for admit. 12/19 10:40 Patient left the ED. em Signatures: Dispatcher [employer] Barbara Palacios, RN RN Vlad Richards PA PA jmm Munoz, Edgar, RN RN Ada Chung ds1 Buffy Langley RN RN ld1 Maday Che kg Barbara Duncan RN Corrections: (The following items were deleted from the chart) 12/17 13:57 13:55 Insulin Drip - (Insulin Regular Human 100 units, NS 0.9% 100 ml) IV at 4 units/hr ld1 in right femoral ld1 14:45 09:06 BP 90 / 36; Pulse 83bpm; Resp 16bpm; Pulse Ox 100%; ld1 ld1
--- NOTE | 2020-12-17 13:11 | EDPHYS ---
Physician Documentation [facility] Name: Lana Yang Age: 84 yrs Sex: Female : 1935 Arrival Date: 12/17/2020 Time: 09:13 Bed 4 Private MD: ED Physician Hardy Masterson HPI: 12/17 10:05 This 84 yrs old Female presents to ER via Unassigned with complaints of jmm unresponsive. 10:05 The patient presents with decreased mental status, decreased responsiveness. Onset: The jmm symptoms/episode began/occurred today. Possible causes: unknown. Associated signs and symptoms: Pertinent positives:. Current symptoms: In the emergency department the patient's symptoms have improved. This is an 84 year old female with a history of DM, s/p recent hip repair that presents to the ED with AMS, SOB according to the [place] [facility]. BGL over 900. states the patient has had dementia for 3 years and is currently returning to baseline. . Historical: - Allergies: 10:11 Codeine; ld1 10:11 PENICILLINS; ld1 - Home Meds: 11:41 amlodipine 5 mg oral tab [Active]; Aricept 10 mg Oral tab 1 tab once daily [Active]; ld1 Lovenox 40 mg/0.4 mL Sub-Q syrg once daily [Active]; ezetimibe 10 mg bedtime Oral [Active]; Januvia 50 mg oral tab once daily [Active]; Lantus 100 unit/mL Sub-Q soln 10 tab nightly [Active]; levothyroxine 125 mcg oral tab once daily [Active]; metformin 1,000 mg Oral tab 1 tab 2 times per day [Active]; multivitamin oral tab daily [Active]; olmesartan oral 40 mg daily oral [Active]; oscal 500/200 D-3 1 tab BID [Active]; risperidone 0.5 mg oral tab nightly [Active]; thiamine HCl (vitamin B1) 100 mg Oral tab daily [Active]; timolol maleate gel forming soln 0.5% 2 drops left eye bedtime [Active]; trazodone 50 mg Oral tab nightly [Active]; - PMHx: 10:11 Diabetes - IDDM; High Cholesterol; Hypertension; Hypothyroidism; TIA; Dementia; ld1 Hyperlipidemia; insomnia; Cataracts; Glaucoma; - PSHx: 10:11 Thyroidectomy; LUMPECTOMY L BREAST; LASER EYE SURGERY; L femur fx; ld1 - Immunization history:: Adult Immunizations unknown. - Social history:: Smoking status: unknown. ROS: 10:17 Unable to obtain ROS due to altered mental status, baseline dementia. [facility] Exam: 10:17 Head/Face: atraumatic. Eyes: EOMI, no conjunctival erythema appreciated ENT: Moist jmm Mucus Membranes Neck: Trachea midline, Supple Chest/axilla: Normal chest wall appearance and motion. Cardiovascular: Regular rate and rhythm. No edema appreciated Respiratory: Normal respirations, no respiratory distress appreciated Abdomen/GI: Non distended, soft Back: Normal ROM Skin: General appearance color normal 10:17 Constitutional: The patient appears awake. 10:17 Musculoskeletal/extremity: ROM: intact in all extremities. 10:17 Skin: Appearance: Color: normal in color. Vital Signs: 09:06 BP 90 / 36; Pulse 83; Resp 16; Temp 98.7(O); Pulse Ox 100% ; ld1 09:30 BP 94 / 38; Pulse 84; Resp 16; Pulse Ox 100% ; ld1 09:48 BP 89 / 39; Pulse 80; Resp 17; Pulse Ox 98% ; ld1 10:11 Height 5 ft. 3 in. (160.02 cm); ld1 10:44 BP 92 / 45; Pulse 76; Resp 19; Pulse Ox 98% on R/A; ld1 11:20 BP 71 / 30; Pulse 65; Resp 17; Pulse Ox 95% on R/A; ld1 12:00 BP 83 / 32; Pulse 66; Resp 16; Pulse Ox 98% on R/A; ld1 12:30 BP 85 / 32; Pulse 66; Resp 16; Pulse Ox 98% on R/A; ld1 13:00 BP 96 / 34; Pulse 68; Resp 14; Pulse Ox 99% on R/A; ld1 13:30 BP 98 / 42; Pulse 69; Resp 15; Pulse Ox 98% on R/A; ld1 14:04 BP 113 / 88; Pulse 72; Resp 17; Pulse Ox 99% on R/A; ld1 Procedures: 13:18 Central Line: the site was prepped with Betadine, in sterile fashion, a triple lumen kimber catheter was inserted, in the right in 10 attempts. placement was verified, by blood return, the site was dressed with using sterile technique, the patient tolerated the procedure, well. MDM: 09:18 Patient medically screened. kimber 13:09 Data reviewed: vital signs, nurses notes. Counseling: I had a detailed discussion with louise the patient and/or guardian regarding: the historical points, exam findings, and any diagnostic results supporting the discharge/admit diagnosis, lab results, the need for further work-up and treatment in the hospital. 12/17 09:21 Order name: Basic Metabolic Panel; Complete Time: 11:35 [facility] 12/17 09:21 Order name: CBC with Diff; Complete Time: 12:21 [facility] 12/17 09:21 Order name: LFT's; Complete Time: 11:35 [facility] 12/17 09:21 Order name: Magnesium; Complete Time: 11:35 [facility] 12/17 09:21 Order name: NT PRO-BNP; Complete Time: 11:35 [facility] 12/17 09:21 Order name: PT-INR; Complete Time: 11:17 [facility] 12/17 09:21 Order name: Troponin (emerg Dept Use Only); Complete Time: 11:35 [facility] 12/17 09:25 Order name: Ketone, Serum; Complete Time: 18:45 [facility] 12/17 09:27 Order name: ABG; Complete Time: 09:56 [facility] 12/17 09:41 Order name: Procalcitonin; Complete Time: 12:21 [facility] 12/17 09:41 Order name: Lactate; Complete Time: 11:17 [facility] 12/17 09:41 Order name: Blood Culture Adult (2) [facility] 12/17 10:49 Order name: Glucose, Ancillary Testing; Complete Time: 10:56 [facility] 12/17 10:53 Order name: Urine Dipstick-Ancillary; Complete Time: 10:56 [facility] 12/17 10:54 Order name: CBC Smear Scan; Complete Time: 12:21 [facility] 12/17 11:15 Order name: Urine Microscopic Only [facility] 12/17 11:15 Order name: Urine Culture [facility] 12/17 11:16 Order name: Urine Microscopic Only; Complete Time: 13:06 [facility] 12/17 11:17 Order name: Urine Culture [facility] 12/17 12:22 Order name: COVID-19 : Document "Date of Symptom Onset" if Symptomatic. [facility] 12/17 14:36 Order name: Chem 7 sv 12/17 15:11 Order name: Glucose, Ancillary Testing; Complete Time: 15:11 EDMS 12/17 15:18 Order name: Lactate Sepsis 2 HR Follow-up; Complete Time: 15:19 EDMS 12/17 15:24 Order name: Basic Metabolic Panel; Complete Time: 15:26 EDMS 12/17 16:16 Order name: SARS-COV-2 RT PCR; Complete Time: 16:16 EDMS 12/17 16:35 Order name: ABG Arterial Blood Gas; Complete Time: 16:55 EDMS 12/17 16:53 Order name: Glucose, Ancillary Testing; Complete Time: 16:55 EDMS 12/17 17:09 Order name: Basic Metabolic Panel; Complete Time: 17:09 EDMS 12/17 18:21 Order name: Glucose, Ancillary Testing; Complete Time: 18:45 EDMS 12/17 18:22 Order name: Glucose, Ancillary Testing; Complete Time: 18:45 EDMS 12/17 20:37 Order name: Basic Metabolic Panel EDMS 12/17 22:09 Order name: Glucose, Ancillary Testing EDMS 12/17 23:17 Order name: Hemoglobin EDMS 12/17 23:17 Order name: Hematocrit EDMS 12/17 23:18 Order name: Lactate EDMS 12/17 23:28 Order name: Cortisol EDMS 12/17 23:47 Order name: Comprehensive Metabolic Panel EDMS 12/17 23:47 Order name: Troponin I EDMS 12/17 23:47 Order name: NT PRO-BNP EDMS 12/17 23:57 Order name: Type and Screen EDMS 12/18 00:12 Order name: Glucose, Ancillary Testing EDMS 12/18 00:20 Order name: CBC with Automated Diff EDMS 12/18 00:58 Order name: Glucose, Ancillary Testing EDMS 12/18 01:00 Order name: ABO/RH no charge EDMS 12/18 01:08 Order name: Procalcitonin EDMS 12/18 01:36 Order name: Manual Differential EDMS 12/18 02:31 Order name: Glucose, Ancillary Testing EDMS 12/18 03:59 Order name: Glucose, Ancillary Testing EDMS 12/18 04:22 Order name: CBC with Automated Diff EDMS 12/18 04:28 Order name: Calcium Level EDMS 12/18 04:28 Order name: Lipid Profile EDPA 12/18 04:28 Order name: Magnesium EDMS 12/18 05:27 Order name: NT PRO-BNP EDMS 12/18 05:48 Order name: Basic Metabolic Panel EDPA 12/18 05:57 Order name: Glucose, Ancillary Testing EDMS 12/18 07:38 Order name: Glucose, Ancillary Testing EDMS 12/18 08:38 Order name: Glucose, Ancillary Testing EDMS 12/18 09:38 Order name: Glucose, Ancillary Testing EDMS 12/18 10:56 Order name: Glucose, Ancillary Testing EDMS 12/18 11:47 Order name: Glucose, Ancillary Testing EDMS 12/18 13:18 Order name: Glucose, Ancillary Testing EDMS 12/17 09:21 Order name: XRAY Chest (1 view); Complete Time: 10:22 [facility] 12/17 09:21 Order name: EKG; Complete Time: 09:22 [facility] 12/17 09:21 Order name: Cardiac monitoring; Complete Time: 09:54 [facility] 12/17 09:21 Order name: EKG - Nurse/Tech; Complete Time: 09:54 [facility] 12/17 09:21 Order name: IV Saline Lock; Complete Time: 09:54 [facility] 12/17 09:21 Order name: Labs collected and sent; Complete Time: 09:54 [facility] 12/17 09:21 Order name: O2 Per Protocol; Complete Time: 09:54 [facility] 12/17 09:21 Order name: O2 Sat Monitoring; Complete Time: 09:54 [facility] 12/17 09:22 Order name: CT Head Brain wo Cont; Complete Time: 10:40 [facility] 12/17 09:23 Order name: Urine Dipstick-Ancillary (obtain specimen); Complete Time: 10:55 [facility] 12/17 09:55 Order name: Labs - recollect needed: Recollect all, specimens contaminated; Complete em1 Time: 10:46 12/17 13:11 Order name: CT Stone Protocol [facility] 12/17 13:38 Order name: CT; Complete Time: 13:43 [facility] 12/18 14:41 Order name: Glucose, Ancillary Testing EDPA 12/18 16:36 Order name: Glucose, Ancillary Testing EDPA 12/18 18:11 Order name: Glucose, Ancillary Testing EDPA 12/18 20:37 Order name: Glucose, Ancillary Testing EDPA 12/18 21:24 Order name: CT EDMS 12/19 00:02 Order name: Glucose, Ancillary Testing EDMS 12/19 05:55 Order name: CBC with Automated Diff EDMS 12/19 06:25 Order name: Basic Metabolic Panel EDMS 12/19 06:25 Order name: Magnesium EDMS 12/19 07:55 Order name: Glucose, Ancillary Testing EDMS Administered Medications: 09:43 Drug: Insulin Regular Human 10 units {Co-Signature: sv (Barbara Duncan RN).} Route: ld1 IVP; Site: left forearm; 10:30 Follow up: Response: Blood sugar is unchanged ld1 09:44 Drug: NS 0.9% 1000 ml Route: IV; Rate: 1 bolus; Site: left forearm; ld1 10:46 Follow up: Response: No adverse reaction; IV Status: Completed infusion ld1 10:05 Drug: NS 0.9% 500 ml Route: IV; Rate: bolus; Site: left forearm; ld1 10:47 Follow up: Response: No adverse reaction; IV Status: Completed infusion ld1 13:14 Not Given (Physician Discretion): NS 0.9% 1000 ml IV at 1 bolus Per protocol; 1000 mL ld1 bolus 13:25 Drug: Potassium Chloride 20 mEq Route: IV; Rate: per protocol; Site: right femoral; ld1 13:40 Follow up: Response: No adverse reaction; IV Status: Completed infusion ld1 13:25 Drug: NS 0.9% 500 ml Route: IV; Rate: bolus; Site: right femoral; ld1 14:15 Follow up: Response: No adverse reaction; IV Status: Completed infusion ld1 13:25 Drug: NS 0.9% 1000 ml Route: IV; Rate: 125 ml/hr; Site: right femoral; ld1 15:03 Follow up: Response: No adverse reaction; IV Status: Infusion continued ld1 13:50 Drug: Rocephin (cefTRIAXone) 1 grams Route: IV; Rate: per protocol; Site: right femoral;ld1 13:55 Follow up: Response: No adverse reaction; IV Status: Completed infusion ld1 13:55 Drug: Insulin Drip - (Insulin Regular Human 100 units, NS 0.9% 100 ml) {Co-Signature: ld1 sv (Barbara Duncan RN).} {Note: Started at 6 Units/hr per Dr. Zelalem.} Route: IV; Rate: 4 units/hr; Site: right femoral; 15:02 Follow up: Response: Blood sugar is lowered; IV Status: Infusion continued ld1 15:05 Follow up: Response: No adverse reaction; Rate change 4 units/hr ld1 Disposition: 12/20 07:48 Co-signature as Attending Physician, Hardy Masterson MD I agree with the assessment and kimber plan of care. Disposition: 12/17/20 13:10 Hospitalization ordered by Jem Munoz for Inpatient Admission. Preliminary diagnosis are Hyperglycemia, unspecified, Altered mental status, unspecified. - Bed requested for Telemetry/MedSurg (Inpatient). - Status is Inpatient Admission. em - Condition is Critical. - Problem is new. - Symptoms have improved. Signatures: Dispatcher [employer] EDTere Erickson Stephanie, Hardy Brown RN, MD MD cha Mickail, Joel, PA PA jmm Munoz, Edgar, STEPHIE CARD Yaw Coyle [facility] Jane Arcos RN RN cg Buffy Langley RN RN ld1 Barbara montoya Corrections: (The following items were deleted from the chart) 12/17 14:30 13:10 Hospitalization Ordered by Jem Munoz MD for Inpatient Admission. Preliminary sv diagnosis is Hyperglycemia, unspecified; Altered mental status, unspecified. Bed requested for Intensive Care Unit. Status is Inpatient Admission. Condition is Critical. Problem is new. Symptoms have improved. [facility] 20:48 14:30 12/17/2020 13:10 Hospitalization Ordered by Jem Munoz MD for Inpatient cg Admission. Preliminary diagnosis is Hyperglycemia, unspecified; Altered mental status, unspecified. Bed requested for [facility] ER HOLD. Status is Inpatient Admission. Condition is Critical. Problem is new. Symptoms have improved. sv 22:15 20:48 12/17/2020 13:10 Hospitalization Ordered by Jem Munoz MD for Inpatient cg Admission. Preliminary diagnosis is Hyperglycemia, unspecified; Altered mental status, unspecified. Bed requested for Telemetry/MedSurg (Inpatient). Status is Inpatient Admission. Condition is Critical. Problem is new. Symptoms have improved. cg 23:11 22:15 12/17/2020 13:10 Hospitalization Ordered by Jem Munoz MD for Inpatient cg Admission. Preliminary diagnosis is Hyperglycemia, unspecified; Altered mental status, unspecified. Bed requested for Intensive Care Unit. Status is Inpatient Admission. Condition is Critical. Problem is new. Symptoms have improved. 12/19 09:50 06 23:11 12/17/2020 13:10 Hospitalization Ordered by Jem Munoz MD for Inpatient bd Admission. Preliminary diagnosis is Hyperglycemia, unspecified; Altered mental status, unspecified. Bed requested for [facility] ER HOLD. Status is Inpatient Admission. Condition is Critical. Problem is new. Symptoms have improved. 12/19 10:40 09:50 12/17/2020 13:10 Hospitalization Ordered by Jem Munoz MD for Inpatient em Admission. Preliminary diagnosis is Hyperglycemia, unspecified; Altered mental status, unspecified. Bed requested for Telemetry/MedSurg (Inpatient). Status is Inpatient Admission. Condition is Critical. Problem is new. Symptoms have improved. bd
[2020-12-17] MEDS ORDERED: KCL 20 MEQ/100 mL IVPB 20 MEQ/100 ML BAG IV ONE (13:37)
[2020-12-17] MEDS ORDERED: CEFTRIAXONE/SWI 1gm 1 GM/10 ML SYR ONE (13:37)
--- NOTE | 2020-12-17 13:37 | RAD REPORT ---
EXAM DESCRIPTION: CT - Stone Protocol - 12/17/2020 1:25 pm CLINICAL HISTORY: Pain;Abd pain;Flank pain COMPARISON: No comparisons TECHNIQUE: Axial [address] imaging of the abdomen and pelvis was performed without IV contrast. No IV contrast was given because of allergy, abnormal renal function, patient refusal or physician re quest. No oral contrast administered. All CT scans are performed using dose optimization technique as appropriate and may include automated exposure control or mA/KV adjustment according to patient size. FINDINGS: No suspicious findings in the lung bases. Fibrotic stranding is present. No pericardial ef fusion. The liver, spleen and pancreas show no suspicious findings on non-contrast imaging. Gallbladder and b iliary tree are also without suspicious finding. No hydronephrosis or suspicious renal mass. No obstructing or nonobstructing calculi. No significant adrenal finding. Isodense renal masses and pyelonephritis cannot be excluded in the absence of IV con trast. Urinary bladder is fully contracted around a Silva catheter. Pelvic floor assessment is limite d due to spray artifact from hip prosthesis. Uterus and atrophic ovaries are seen. No ovarian based m ass suspected. No dilated bowel loops or bowel wall thickening. No free air, free fluid or inflammatory stranding. No hernia, mass or bulky lymphadenopathy. No suspicious bony findings. IMPRESSION: Non-contrast enhanced CT abdomen and pelvis imaging show no significant or suspicious fi nding. Full assessment is limited is the absence of IV contrast.
[2020-12-17] MEDS ORDERED: NA CHLORIDE 0.9% 1,000 ML ONE ×2 (13:38→18:55)
[2020-12-17] MEDS ORDERED: INSULIN -REGULAR HUMAN 100 UNIT in NA CHLORIDE 0.9% 100 ML IV SCH ×2 (14:00→18:00)
[2020-12-17 15:22] LABS: Potassium 3.6 mmol/L (3.5-5.1)
[2020-12-17] MEDS ORDERED: ACETAMINOPHEN 650MG/RECT SUPP PR PRN (15:50)
--- NOTE | 2020-12-17 15:55 | P.HP ---
Certification for Inpatient Patient admitted to: Inpatient With expected LOS: >2 Midnights Patient will require the following post-hospital care: None Practitioner: I am a practitioner with admitting privileges, knowledge of patient current condition, hospital course, and medical plan of care. Services: Services provided to patient in accordance with Admission requirements found in Title 42 Section 412.3 of the Code of Federal Regulations <JackCarloemilee Costa - Last Filed: 12/17/20 19:04> Patient History Date of Service: 12/17/20 Reason for admission: AMS, unresponsiveness. History of Present Illness: Patient is an 84-year-old female with a past medical history significant for DM 2, hyperlipidemia, hypertension, glaucoma, hypothyroidism who presents with complaint of altered mental status and unresponsiveness. Patient was recently discharged from the hospital and sent to a rehab facility after a left hip repa ir surgery secondary to fall. Spouse reported that patient was at a rehab session today and facility staff indicated that patient was very weak this morning and eventfully passed out. Patient was placed in a wheelchair and patient passed out a second time after eating her breakfast. Spouse reported that patient was unresponsive to verbal commands. No other signs or symptoms reported. Symptoms are aggravated or relieved by nothing. Patient was brought to the ER for medical evaluation. Of note, patient's BS was noted to be above 900 mg/dl on presentation to the ER. - Past Medical/Surgical History Diabetic: Yes -: Diabetes mellitus type 2 -: Hypertension -: Hyperlipidemia -: Glaucoma -: Cataracts -: hypothyroidism -: Cataract surgery -: laser eye surgery -: L breast lumpectomy -: thyroidectomy Psychosocial/ Personal History: She is . Has 2 children. She no longer works. - Family History Brother -: Cancer - Social History Smoking Status: Never smoker Alcohol use: No CD- Drugs: No Caffeine use: Yes Place of Residence: [facility] (Rehab Facility) <Corby Santiago - Last Filed: 12/17/20 19:04> Date of Service: 12/17/20 <Jem Munoz - Last Filed: 12/19/20 09:14> Allergies Penicillins Allergy (Verified 11/05/17 11:55) Rash codeine Adverse Reaction (Verified 11/05/17 11:55) Nausea/Vomiting Home Medications: Amlodipine [Norvasc*] 5 mg PO DAILY 12/03/20 Donepezil [Aricept*] 10 mg PO DAILY 12/03/20 Ezetimibe 10 mg PO BEDTIME 12/03/20 Olmesartan Medoxomil 40 mg PO DAILY 12/03/20 Timolol [Betimol] 2 drops LEFT EYE DAILY 12/03/20 Trazodone [Desyrel*] 50 mg PO BEDTIME 12/03/20 Calcium Carbonate/Vitamin D3 [Oscal 500 + Vit D 200 Iu Tab*] 1 tab PO BID #60 tab 12/13/20 Enoxaparin Sodium [Lovenox 40 MG INJ*] 40 mg SQ DAILY #7 syr 12/13/20 Metformin HCl 1,000 mg PO BID #60 tablet 12/13/20 Multivit with Iron,Minerals [Complete Senior] 1 each PO DAILY #90 tablet 12/13/20 Thiamine HCl 100 mg PO DAILY #90 tablet 12/13/20 risperiDONE [Risperdal 0.25 MG TAB*] 0.5 mg PO BEDTIME #60 tab 12/13/20 Levothyroxine [Synthroid*] 125 mcg PO DAILYAC 12/17/20 Review of Systems is unable to be obtained <Corby Santiago - Last Filed: 12/17/20 19:04> Physical Examination - Vital Signs Temperature: 98.7 F Blood Pressure: 91/46 Pulse: 68 Respirations: 15 Pulse Ox (%): 99 - Physical Exam General: Confused, Delirious, Other (Disoriented x3.) HEENT: Atraumatic, PERRLA, EOMI, Sclerae nonicteric Neck: Supple, 2+ carotid pulse no bruit, No LAD, Without JVD or thyroid abnormality Respiratory: Clear to auscultation bilaterally, Normal air movement Cardiovascular: Regular rate/rhythm, Normal S1 S2 Gastrointestinal: Normal bowel sounds, No tenderness Musculoskeletal: No tenderness Integumentary: No rashes Neurological: Normal affect, Dementia Lymphatics: No axilla or inguinal lymphadenopathy External genitalia: Deferred Rectal: Deferred - Studies Laboratory Data (last 24 hrs) 12/17/20 10:36: WBC 12.70 H D, Hgb 9.2 L, Hct 29.1 L, Plt Count 351 12/17/20 10:35: PT 11.5, INR 1.00 12/17/20 10:34: Sodium 145, Potassium 3.4 L, BUN 61 H, Creatinine 2.02 H, Glucose 701 H*, Magnesium 2.7 H D, Total Bilirubin 0.3, AST 13 L, ALT 23, Alkaline Phosphatase 87 <Corby Santiago - Last Filed: 12/17/20 19:04> Assessment and Plan - Plan --DM 2 with Hyperosmolar hyperglycemic state: No acidosis noted on ABG. Patient admitted to ICU. Insulin Drip started in the ER. Will titrate insulin per protocol. Will continue to monitor electrolytes. Will repeat ABG levels. --Acute encephalopathy. Secondary to hyperglycemia. Continue current treatment regimen and supportive care. --Alzheimer's dementia. Patient currently unresponsive to verbal commands. Confused and disoriented x3. Continue home medications when appropriate. Continue supportive care. --Hypertension. Patient currently hypotensive. Will hold off on BP meds. Continue IV hydration-. --Glaucoma. Continue home medications. --Hypothyroidism. Continue home medications when appropriate. --Hyperlipidemia. Continue home medications when appropriate. --Hypernatremia. IV hydration change from NS to NS. Will continue to monitor sodium levels. --DVT prophylaxis with heparin subQ Discharge Plan: Other (Rehab facility) Plan to discharge in: Greater than 2 days - Advance Directives Does patient have a Living Will: No Does patient have a Durable POA for Healthcare: No - Code Status/Comfort Care Code Status Assessed: Yes Code Status: Full Code Critical Care: No <Corby Santiago - Last Filed: 12/17/20 19:04> Date of Service: 12/17/20 Agree with plan of care as mentioned above. Patient does not have diabetic ketoacidosis. Most likely hyperosmolar but this can be managed with fluids and insulin subcutaneously. Also start oral hypoglycemic agents. Mentation is not really that improved. Working on placement as well. Family does not want go back to [place]. <Jem Munoz - Last Filed: 12/19/20 09:14>
[2020-12-17] MEDS ORDERED: NS KCL 20MEQ 1,000 ML IV SCH (16:16)
[2020-12-17] MEDS ORDERED: D5.45NS W/KCL 20MEQ 1,000 ML IV SCH (16:16)
[2020-12-17] MEDS ORDERED: NACHLORIDE 0.45% 1,000 ML with POTASSIUM CL 20 MEQ IV SCH ×2 (16:16)
[2020-12-17] MEDS ORDERED: ONDANSETRON 4 MG/2 ML VIAL IV PRN (16:16)
[2020-12-17 16:34] LABS: Arterial Blood Carboxyhemoglob 1.5 % (0-1.5); Blood Gas Oxyhemoglobin 94.8 % (94-97); Blood O2 Saturation 97.1 % (92-98.5)
[2020-12-17 17:08] LABS: Potassium 3.5 mmol/L (3.5-5.1)
[2020-12-17] MEDS ORDERED: D50W 25 GM/50 ML SYRINGE IV PRN (17:29)
[2020-12-17] MEDS ORDERED: GLUCAGON 1 MG/VIAL IM PRN (17:29)
[2020-12-17] MEDS ORDERED: INSULIN -REGULAR HUMAN 50 UNIT/0.5 ML ML IV SCH (17:30)
[2020-12-17] MEDS ORDERED: NA CHLORIDE 0.9% 1,000 ML IV SCH (18:00)
[2020-12-17] MEDS ORDERED: NACHLORIDE 0.45% 1,000 ML IV SCH (20:00)
[2020-12-17 20:37] LABS: Potassium 3.5 mmol/L (3.5-5.1)
[2020-12-17] MEDS: HEPARIN 5000 UNIT/ML 1 ML VIAL SQ SCH (21:00)
[2020-12-17] MEDS: D5.45NS W/KCL 20MEQ 1,000 ML IV SCH (22:00)
[2020-12-17] MEDS: NACHLORIDE 0.45% 1,000 ML with POTASSIUM CL 20 MEQ IV SCH ×2 (22:00)
[2020-12-17] MEDS ORDERED: NA CHLORIDE 0.9% 500 ML IV ONE (22:13)
[2020-12-17] MEDS ORDERED: D5.45NS W/KCL 20MEQ 1,000 ML IV ONE (22:23)
[2020-12-17] MEDS ORDERED: HEPARIN 5000 UNIT/ML 1 ML VIAL ONE (22:33)
[2020-12-17 23:10] LABS: Hematocrit 23.3 % (36.0-45.0)
[2020-12-17 23:43] LABS: ALT/SGPT 19 U/L (12-78); AST/SGOT 11 U/L (15-37); Albumin 2.7 g/dL (3.4-5.0); Alkaline Phosphatase 64 U/L (45-117); BUN Blood Urea Nitrogen 54 mg/dL (7-18); Bicarbonate 24 mmol/L (21-32); Bilirubin Total 0.2 mg/dL (0.2-1.0); Glucose Level 209 mg/dL (74-106); NT PRO-BNP 642 pg/mL (<450); Potassium 3.2 mmol/L (3.5-5.1); Protein, Total 5.9 g/dL (6.4-8.2); Sodium Level 151 mmol/L (136-145); Troponin I < 0.02 ng/mL (0.0-0.045)
[2020-12-17] MEDS ORDERED: HYDROCORTISONE SUC 100 MG INJ IV ONE (23:59)
[2020-12-18 00:18] LABS: Absolute Lymphocytes (CBC) 0.7 K/uL (0.7-4.9); Basophils % 0.1 % (0-1.3); Lymphocytes % 6.1 % (15.3-44.8); MPV 10.5 fL (7.6-11.3); RBC Red Blood Cell Count 2.59 M/uL (3.86-4.86)
[2020-12-18] MEDS ORDERED: HYDROCORTISONE SUC 100 MG INJ ONE (00:22)
[2020-12-18] MEDS ORDERED: NOREPINEPHRINE 4 MG in D5W 250 ML IV PRN (01:19)
[2020-12-18] MEDS ORDERED: NA CHLORIDE 0.9% 0 ML ONE (01:26)
[2020-12-18] MEDS ORDERED: NOREPINEPHRINE 4mg/D5W 250mL 4 MG/250 ML BAG IV ONE (01:26)
[2020-12-18 01:36] LABS: Blood Morphology Comment NOT SEEN (NOT SEEN); Platelet Estimate ADEQ
[2020-12-18 04:14] LABS: Absolute Lymphocytes (CBC) 0.3 K/uL (0.7-4.9); Basophils % 0.1 % (0-1.3); Hematocrit 24.9 % (36.0-45.0); Lymphocytes % 3.2 % (15.3-44.8); MPV 9.8 fL (7.6-11.3); RBC Red Blood Cell Count 2.67 M/uL (3.86-4.86)
[2020-12-18 04:28] LABS: Magnesium 2.3 mg/dL (1.8-2.4)
[2020-12-18 05:57] LABS: Potassium 3.6 mmol/L (3.5-5.1)
[2020-12-18] MEDS ORDERED: D5.45NS W/KCL 20MEQ 1,000 ML IV ONE (07:50)
[2020-12-18] MEDS: D5.45NS W/KCL 20MEQ 1,000 ML IV SCH (08:00)
[2020-12-18] MEDS: NACHLORIDE 0.45% 1,000 ML with POTASSIUM CL 20 MEQ IV SCH ×2 (08:06)
[2020-12-18] MEDS: HEPARIN 5000 UNIT/ML 1 ML VIAL SQ SCH ×2 (09:00→22:30)
[2020-12-18] MEDS: INSULIN GLARGINE 100 UNITS/ML SQ SCH ×2 (09:30→19:00)
[2020-12-18] MEDS ORDERED: INSULIN GLARGINE 100 UNITS/ML SQ ONE (09:59)
--- NOTE | 2020-12-18 11:59 | EKG ---
Test Date: 2020-12-17 Test Time: 09:48:45 [employer]: RITA MEASUREMENT RESULTS: Intervals: Rate: 80 TN: 202 QRSD: 72 QT: 448 QTc: 516 [place]: P: 118 TN: 202 QRS: 42 T: 63 INTERPRETIVE STATEMENTS: Undetermined rhythm Nonspecific ST and T wave abnormality Prolonged QT Abnormal ECG Compared to ECG 12/03/2020 07:19:14 Prolonged QT interval now present Sinus rhythm no longer present ST (T wave) deviation still present Electronically Signed On 12-18-20 11:54:11 CDT by Daniel Dyson
[2020-12-18] MEDS ORDERED: INSULIN -REGULAR HUMAN 50 UNIT/0.5 ML ML SQ ONE (12:15)
[2020-12-18] MEDS ORDERED: INSULIN -REGULAR HUMAN 50 UNIT/0.5 ML ML ONE (12:32)
--- NOTE | 2020-12-18 13:05 | ECHO ---
HEIGHT: 5 ft 4 in WEIGHT: 150 lb 0 oz DATE OF STUDY: 12/18/[address]: Shemar Martel 2-DIMENSIONAL: YES M.MODE: YES DOPPLER: YES COLOR FLOW: YES TDS: YES PORTABLE: NO DEFINITY: NO BUBBLE STUDY: NO DIAGNOSIS: HYPOTENSION CARDIAC HISTORY: CATHERIZATION: NO SURGERY: NO PROSTHETIC VALVE: NO PACEMAKER: NO MEASUREMENTS (cm) DIASTOLIC (NORMALS) SYSTOLIC (NORMALS) IVSd 1.0 (0.6-1.2) LA Diam 2.4 (1.9-4.0) LVEF 54% LVIDd 3.3 (3.5-5.7) LVIDs 2.4 (2.0-3.5) %FS 27% LVPWd 1.1 (0.6-1.2) Ao Diam 2.6 (2.0-3.7) 2 DIMENSIONAL ASSESSMENT: RIGHT ATRIUM: NORMAL LEFT ATRIUM: NORMAL RIGHT VENTRICLE: NORMAL LEFT VENTRICLE: NORMAL TRICUSPID VALVE: NORMAL MITRAL VALVE: NORMAL PULMONIC VALVE: NORMAL AORTIC VALVE: NORMAL PERICARDIAL EFFUSION: NONE AORTIC ROOT: NORMAL LEFT VENTRICULAR WALL MOTION: NORMAL DOPPLER/COLOR FLOW: NORMAL COMMENTS: TECHNICALLY DIFFICULT STUDY. GROSSLY NORMAL LEFT VENTRICULAR SIZE AND FUNCTION. NO WALL MOTION ABNORMALITY. NO EFFUSION. TECHNOLOGIST: Chandra JACKSON
[2020-12-18 13:50] VITALS: BMI 22.8
[2020-12-18] MEDS: INSULIN -REGULAR HUMAN 50 UNIT/0.5 ML ML SQ SCH ×2 (16:30→21:00)
[2020-12-18] MEDS: D5W 1,000 ML IV SCH (18:53)
[2020-12-18] MEDS ORDERED: D5W 1,000 ML IV ONE (19:05)
[2020-12-18] MEDS: MORPHINE 2 MG/ML SYR IV PRN (20:30)
[2020-12-18] MEDS ORDERED: MORPHINE 2 MG/ML SYR ONE (20:42)
--- NOTE | 2020-12-18 21:22 | RAD REPORT ---
EXAM DESCRIPTION: CT - Abdomen Pelvis W Contrast - 12/18/2020 8:39 pm CLINICAL HISTORY: abdominal pain COMPARISON: [facility] Protocol dated 12/17/2020 TECHNIQUE: Biphasic, helical CT imaging of the abdomen and pelvis was performed following 100 ml non -ionic IV contrast. No oral contrast. All CT scans are performed using dose optimization technique as appropriate and may include automated exposure control or mA/KV adjustment according to patient size. FINDINGS: Nodularity seen in the lateral right base. Heart size is prominent. No pericardial effusio n. Liver and spleen show no suspicious findings. No gallbladder or biliary tree abnormality. Gallstones can be occult on CT imaging. No acute pancreatic process seen. There is a 2 centimeter oval cyst at t he junction between the duodenum and the uncinate process of the pancreas. This is favored to be a du odenal cyst rather than a pancreatic cyst. Long-term significance is doubtful. Symmetric renal function is seen with no hydronephrosis or suspicious renal mass. No pyelonephritis o r acute parenchymal process. Urinary bladder is fully contracted around a Silva catheter. Uterus is a trophic probably containing small fibroid. No suspicious ovarian findings. No adrenal abnormalities. Pelvic floor assessment is limited due to left hip prosthesis spray artifact. No dilated bowel loops or bowel wall thickening. Moderate stool volume present in the colon. No activ e or emergent GI process identifiable. No free air, free fluid or inflammatory stranding. No hernia, mass or bulky lymphadenopathy. No suspicious bony findings. IMPRESSION: Contrast enhanced CT abdomen and pelvis showing no acute or emergent finding. Nonacute findings detailed in the body of the report.
[2020-12-18] MEDS ORDERED: HEPARIN 5000 UNIT/ML 1 ML VIAL ONE (22:29)
[2020-12-19 05:44] LABS: Absolute Lymphocytes (CBC) 0.9 K/uL (0.7-4.9); Basophils % 0.4 % (0-1.3); Hematocrit 24.4 % (36.0-45.0); Lymphocytes % 16.2 % (15.3-44.8); RBC Red Blood Cell Count 2.62 M/uL (3.86-4.86)
[2020-12-19 06:11] LABS: Magnesium 1.9 mg/dL (1.8-2.4)
[2020-12-19 06:24] LABS: Potassium 2.8 mmol/L (3.5-5.1)
[2020-12-19] MEDS: INSULIN -REGULAR HUMAN 50 UNIT/0.5 ML ML SQ SCH ×4 (07:30→20:22)
[2020-12-19] MEDS: INSULIN GLARGINE 100 UNITS/ML SQ SCH ×2 (08:00→16:41)
[2020-12-19] MEDS ORDERED: INSULIN -REGULAR HUMAN 50 UNIT/0.5 ML ML ONE (08:10)
[2020-12-19] MEDS: D5W 1,000 ML IV SCH ×2 (08:20→22:29)
[2020-12-19] MEDS: HEPARIN 5000 UNIT/ML 1 ML VIAL SQ SCH ×2 (09:00→20:27)
[2020-12-19] MEDS ORDERED: POTASSIUM PHOS 30 MM in NA CHLORIDE 0.9% 500 ML IV ONE (09:10)
[2020-12-19] MEDS ORDERED: CALCIUM GLUC 10% INJ 4.65 MEQ in NA CHLORIDE 0.9% 100 ML IV ONE (09:10)
--- NOTE | 2020-12-19 09:20 | P.PN ---
Subjective Date of Service: 12/18/20 Patient still confused. However patient mentation is somewhat improving. More awake than she was yesterday. Continue correcting electrolytes. Review of Systems 10-point ROS is otherwise unremarkable Physical Examination - Vital Signs Temperature: 98.0 F Blood Pressure: 111/58 Pulse: 68 Respirations: 18 Pulse Ox (%): 98 - Physical Exam General: Confused (Lethargic) Respiratory: Clear to auscultation bilaterally, Normal air movement Cardiovascular: Regular rate/rhythm, Normal S1 S2, No murmurs Gastrointestinal: Normal bowel sounds, Soft and benign, Non-distended, No tenderness Musculoskeletal: No clubbing, No swelling, No tenderness Neurological: Sensation intact, Cranial nerves 3-12 intact - Studies Medications List Reviewed: Yes Assessment & Plan - Problems (Diagnosis) (1) Altered mental status Onset Date: 02/18/16 Current Visit: No Status: Acute Qualifiers: Altered mental status type: unspecified Qualified Code(s): R41.82 - Altered mental status, unspecified (2) Alzheimer's type dementia Current Visit: No Status: Acute (3) Displaced fracture of left femoral neck Current Visit: No Status: Acute (4) Diabetes mellitus Onset Date: 02/18/16 Current Visit: No Status: Chronic (5) Hyperlipidemia Onset Date: 02/18/16 Current Visit: No Status: Chronic Qualifiers: (6) Hypertension Onset Date: 02/18/16 Current Visit: No Status: Chronic Qualifiers: - Plan Plan: 1. Continue with IV fluids 2. Strict blood sugar control 3. Monitor electrolytes closely 4. UA with microscopy 5. Cultures negative 6. Physical therapy evaluation once mentation is improved 7. Placement as family does not want to go back to [place] 8. GI and DVT prophylaxis Discharge Plan: Home Plan to discharge in: Greater than 2 days - Advance Directives Does patient have a Living Will: No Does patient have a Durable POA for Healthcare: No - Code Status/Comfort Care Code Status: Full Code Critical Care: No Time Spent Managing PTS Care (In Minutes): 45
--- NOTE | 2020-12-19 09:21 | P.PN ---
Date of Service: 12/19/20 Subjective Patient is clinically doing a little bit better. Patient is more awake. Blood sugars are stable. However, she is not really strong enough to get out of bed and ambulate. Will get physical therapy evaluation. After physical therapy evaluation she should be good to get back to [facility]. Review of Systems 10-point ROS is otherwise unremarkable Physical Examination - Vital Signs Review - Physical Exam General: More awake and alert today Respiratory: Clear to auscultation bilaterally, Normal air movement Cardiovascular: Regular rate/rhythm, Normal S1 S2, No murmurs Gastrointestinal: Normal bowel sounds, Soft and benign, Non-distended, No tenderness Musculoskeletal: No clubbing, No swelling, No tenderness Neurological: Sensation intact, Cranial nerves 3-12 intact; patient with a history of dementia - Studies Medications List Reviewed: Yes Assessment & Plan - Problems (Diagnosis) (1) Altered mental status Onset Date: 02/18/16 Current Visit: No Status: Acute Qualifiers: Altered mental status type: unspecified Qualified Code(s): R41.82 - Altered mental status, unspecified (2) Alzheimer's type dementia Current Visit: No Status: Acute (3) Displaced fracture of left femoral neck Current Visit: No Status: Acute (4) Diabetes mellitus Onset Date: 02/18/16 Current Visit: No Status: Chronic (5) Hyperlipidemia Onset Date: 02/18/16 Current Visit: No Status: Chronic Qualifiers: (6) Hypertension Onset Date: 02/18/16 Current Visit: No Status: Chronic Qualifiers: - Plan Plan: Continue with plan of care as mentioned below: 1. Continue with IV fluids 2. Strict blood sugar control; blood sugars have been labile 3. Monitor electrolytes closely 4. UA with microscopy unremarkable at this time 5. Cultures negative 6. Physical therapy evaluation once mentation is improved 7. Placement as family does not want to go back to [place] however, spoke with case management and no other place for patient to really go so will discuss with family regarding options going forward 8. GI and DVT prophylaxis
[2020-12-19] MEDS ORDERED: INSULIN GLARGINE 100 UNITS/ML SQ ONE (09:34)
[2020-12-19] MEDS ORDERED: HEPARIN 5000 UNIT/ML 1 ML VIAL ONE (09:34)
[2020-12-19] MEDS ORDERED: D5W 1,000 ML IV ONE (09:45)
[2020-12-19] MEDS ORDERED: POTASSIUM CL 40 MEQ in NA CHLORIDE 0.9% 500 ML IV SCH (10:00)
[2020-12-19] MEDS ORDERED: D50W 25 GM/50 ML VIAL IV PRN (14:00)
[2020-12-19] MEDS: ENSURE HIGH PROTEIN 237 ML CAN PO SCH (16:30)
[2020-12-19] MEDS: KCL 20 MEQ/100 mL IVPB 20 MEQ/100 ML BAG IV SCH (22:29)
[2020-12-20] MEDS: KCL 20 MEQ/100 mL IVPB 20 MEQ/100 ML BAG IV SCH ×3 (00:04→20:10)
[2020-12-20] MEDS: MORPHINE 2 MG/ML SYR IV PRN ×2 (03:19→13:36)
[2020-12-20 04:04] LABS: Absolute Lymphocytes (CBC) 1.2 K/uL (0.7-4.9); Basophils % 0.3 % (0-1.3); Hematocrit 25.5 % (36.0-45.0); Lymphocytes % 19.5 % (15.3-44.8); MPV 10.7 fL (7.6-11.3); RBC Red Blood Cell Count 2.76 M/uL (3.86-4.86)
[2020-12-20 04:24] LABS: Albumin 2.7 g/dL (3.4-5.0); Bilirubin Total 0.4 mg/dL (0.2-1.0); Magnesium 1.6 mg/dL (1.8-2.4); Phosphorus 2.7 mg/dL (2.5-4.9); Potassium 3.4 mmol/L (3.5-5.1)
[2020-12-20] MEDS ORDERED: CALCIUM GLUC 10% INJ 4.65 MEQ in NA CHLORIDE 0.9% 100 ML IV ONE (07:00)
[2020-12-20] MEDS: INSULIN -REGULAR HUMAN 50 UNIT/0.5 ML ML SQ SCH (07:30)
[2020-12-20] MEDS: ENSURE HIGH PROTEIN 237 ML CAN PO SCH ×3 (07:30→16:19)
[2020-12-20] MEDS: HEPARIN 5000 UNIT/ML 1 ML VIAL SQ SCH ×2 (07:51→20:11)
[2020-12-20] MEDS ORDERED: MAGNESIUM SULFATE 1 gm IVPB 1 GM/100 ML BAG IV ONE (08:00)
[2020-12-20] MEDS: INSULIN GLARGINE 100 UNITS/ML SQ SCH ×2 (08:50→16:31)
[2020-12-20] MEDS: D5W 1,000 ML IV SCH (10:49)
[2020-12-20] MEDS: D5 0.45 NS 1,000 ML IV SCH (13:35)
[2020-12-20] MEDS: TRAZODONE 50 MG TABLET PO SCH (20:11)
[2020-12-21] MEDS: D5 0.45 NS 1,000 ML IV SCH ×2 (01:25→15:58)
[2020-12-21 06:52] LABS: Absolute Lymphocytes (CBC) 0.7 K/uL (0.7-4.9); Basophils % 0.3 % (0-1.3); Hematocrit 23.8 % (36.0-45.0); Lymphocytes % 18.1 % (15.3-44.8); MPV 9.7 fL (7.6-11.3); RBC Red Blood Cell Count 2.58 M/uL (3.86-4.86)
[2020-12-21 07:02] LABS: BUN Blood Urea Nitrogen 6 mg/dL (7-18); Bicarbonate 29 mmol/L (21-32); Glucose Level 161 mg/dL (74-106); Magnesium 1.8 mg/dL (1.8-2.4); Phosphorus 3.4 mg/dL (2.5-4.9); Potassium 3.2 mmol/L (3.5-5.1); Sodium Level 141 mmol/L (136-145)
[2020-12-21] MEDS ORDERED: MAGNESIUM SULFATE 1 gm IVPB 1 GM/100 ML BAG IV ONE (07:09)
[2020-12-21] MEDS: ENSURE HIGH PROTEIN 237 ML CAN PO SCH ×5 (07:30→15:58)
[2020-12-21] MEDS: HEPARIN 5000 UNIT/ML 1 ML VIAL SQ SCH ×2 (07:49→21:26)
[2020-12-21] MEDS ORDERED: POTASSIUM CL 40 MEQ in NA CHLORIDE 0.9% 500 ML IV SCH (08:00)
[2020-12-21] MEDS: INSULIN GLARGINE 100 UNITS/ML SQ SCH ×2 (09:20→17:00)
[2020-12-21] MEDS: TRAZODONE 50 MG TABLET PO SCH (21:26)
[2020-12-22 04:35] LABS: Potassium 3.5 mmol/L (3.5-5.1)
[2020-12-22] MEDS: D5 0.45 NS 1,000 ML IV SCH ×2 (05:30→15:23)
[2020-12-22] MEDS: INSULIN GLARGINE 100 UNITS/ML SQ SCH ×2 (08:00→16:27)
[2020-12-22] MEDS: HEPARIN 5000 UNIT/ML 1 ML VIAL SQ SCH ×2 (08:08→20:47)
[2020-12-22] MEDS: ENSURE HIGH PROTEIN 237 ML CAN PO SCH ×3 (08:08→15:33)
[2020-12-22] MEDS ORDERED: POTASSIUM CL SA 10 MEQ TAB PO ONE (09:00)
--- NOTE | 2020-12-22 14:06 | P.PN ---
Date of Service: 12/20/20 Subjective Patient is more awake but really not eating much of anything. Patient is very lethargic throughout the day and wakes up for short kind of goes right back to sleep. Once patient is more awake and participating more with physical therapy. We will arrange for outpatient placement at [facility] once again Review of Systems 10-point ROS is otherwise unremarkable Physical Examination - Vital Signs Review - Physical Exam General: Lethargic but confused; follows commands Respiratory: Clear to auscultation bilaterally, Normal air movement Cardiovascular: Regular rate/rhythm, Normal S1 S2, No murmurs Gastrointestinal: Normal bowel sounds, Soft and benign, Non-distended, No tenderness Musculoskeletal: No clubbing, No swelling, No tenderness Neurological: Moves all her extremities; sensations intact - Studies Medications List Reviewed: Yes Assessment & Plan - Problems (Diagnosis) (1) Altered mental status Onset Date: 02/18/16 Current Visit: No Status: Acute Qualifiers: Altered mental status type: unspecified Qualified Code(s): R41.82 - Altered mental status, unspecified (2) Alzheimer's type dementia Current Visit: No Status: Acute (3) Displaced fracture of left femoral neck Current Visit: No Status: Acute (4) Diabetes mellitus Onset Date: 02/18/16 Current Visit: No Status: Chronic (5) Hyperlipidemia Onset Date: 02/18/16 Current Visit: No Status: Chronic Qualifiers: (6) Hypertension Onset Date: 02/18/16 Current Visit: No Status: Chronic Qualifiers: - Plan Plan: Continue with plan of care as mentioned below: 1. Continue with IV fluids 2. Patient still with labile blood sugars; only use long-acting insulin 3. Monitor electrolytes closely 4. Cultures are negative 5. Advanced diet as tolerated; have to increase patient's calories and may give appetite supplement 6. Physical therapy evaluation once mentation is improved 7. Placement as family does not want to go back to [place] however, spoke with case management and no other place for patient to really go so will discuss with family regarding options going forward 8. GI and DVT prophylaxis
--- NOTE | 2020-12-22 14:08 | P.PN ---
Date of Service: 12/22/20 Subjective Patient is doing better. Family states that patient is walking to the bedside commode. Patient ate all her breakfast as well. She appears to be doing much better at this time. Will work with physical therapy and try to get patient transfer to long-term facility at [facility]. Review of Systems 10-point ROS is otherwise unremarkable Physical Examination - Vital Signs Review - Physical Exam General: Lethargic but confused; follows commands; demented Respiratory: Clear to auscultation bilaterally, Normal air movement Cardiovascular: Regular rate/rhythm, Normal S1 S2, No murmurs Gastrointestinal: Normal bowel sounds, Soft and benign, Non-distended, No tenderness Musculoskeletal: No clubbing, No swelling, No tenderness Neurological: Moves all her extremities; sensations intact Assessment & Plan - Problems (Diagnosis) (1) Altered mental status Onset Date: 02/18/16 Current Visit: No Status: Acute Qualifiers: Altered mental status type: unspecified Qualified Code(s): R41.82 - Altered mental status, unspecified (2) Alzheimer's type dementia Current Visit: No Status: Acute (3) Displaced fracture of left femoral neck Current Visit: No Status: Acute (4) Diabetes mellitus Onset Date: 02/18/16 Current Visit: No Status: Chronic (5) Hyperlipidemia Onset Date: 02/18/16 Current Visit: No Status: Chronic Qualifiers: (6) Hypertension Onset Date: 02/18/16 Current Visit: No Status: Chronic Qualifiers: - Plan Plan: Continue with plan of care as mentioned below: 1. Plan to Hep-Lock IV 2. Blood sugars are stable; adjust insulin dosing 3. Monitor electrolytes closely 4. Cultures positive for Enterococcus. Continue Levaquin 5. Advanced diet as tolerated; IV steroids x1 given for appetite stimulation 6. Physical therapy evaluation in a.m. 7. Family is undecided to go back to [place]; according to case management patient will have many choices. 8. GI and DVT prophylaxis
--- NOTE | 2020-12-22 14:08 | P.PN ---
Date of Service: 12/21/20 Subjective Patient is doing better. Nurses been able to feed patient about 25% of meals and drinking half of the Ensure per meals. Need to increase her caloric intake and we need to arrange for some therapy and discharge back to [facility] [place] on Wednesday Review of Systems 10-point ROS is otherwise unremarkable Physical Examination - Vital Signs Review - Physical Exam General: Lethargic but confused; follows commands; demented Respiratory: Clear to auscultation bilaterally, Normal air movement Cardiovascular: Regular rate/rhythm, Normal S1 S2, No murmurs Gastrointestinal: Normal bowel sounds, Soft and benign, Non-distended, No tenderness Musculoskeletal: No clubbing, No swelling, No tenderness Neurological: Moves all her extremities; sensations intact - Studies Medications List Reviewed: Yes Assessment & Plan - Problems (Diagnosis) (1) Altered mental status Onset Date: 02/18/16 Current Visit: No Status: Acute Qualifiers: Altered mental status type: unspecified Qualified Code(s): R41.82 - Altered mental status, unspecified (2) Alzheimer's type dementia Current Visit: No Status: Acute (3) Displaced fracture of left femoral neck Current Visit: No Status: Acute (4) Diabetes mellitus Onset Date: 02/18/16 Current Visit: No Status: Chronic (5) Hyperlipidemia Onset Date: 02/18/16 Current Visit: No Status: Chronic Qualifiers: (6) Hypertension Onset Date: 02/18/16 Current Visit: No Status: Chronic Qualifiers: - Plan Plan: Continue with plan of care as mentioned below: 1. Plan to Hep-Lock IV 2. Blood sugars are stable 3. Monitor electrolytes closely 4. Cultures are negative 5. Advanced diet as tolerated; IV steroids 6. Physical therapy evaluation once mentation is improved 7. Family has decided to go back to [place] 8. GI and DVT prophylaxis
[2020-12-22] MEDS: MORPHINE 2 MG/ML SYR IV PRN (15:31)
[2020-12-22] MEDS ORDERED: HYDROCORTISONE SUC 100 MG INJ IV ONE (17:00)
[2020-12-22] MEDS ORDERED: Levofloxacin500mg IV 500 MG/100 ML BAG IV SCH (18:00)
[2020-12-22] MEDS ORDERED: CALCIUM GLUC 10% INJ 4.65 MEQ in NA CHLORIDE 0.9% 100 ML IV ONE (20:34)
[2020-12-22] MEDS: TRAZODONE 50 MG TABLET PO SCH (20:47)
[2020-12-22] MEDS: CALCIUM CARB 500MG/VIT D 200 IU TAB PO SCH (20:48)
[2020-12-22] MEDS ORDERED: CALCIUM GLUCONATE 1 GM IVPB 1 GM/50 ML BAG IV ONE (21:24)
[2020-12-23] MEDS: ENSURE HIGH PROTEIN 237 ML CAN PO SCH ×3 (07:30→16:19)
[2020-12-23] MEDS ORDERED: GLIMEPIRIDE 2 MG TABLET PO SCH (08:00)
[2020-12-23] MEDS: TIMOLOL MALEATE 0.5% OPTH 5 ML BTL EACH EYE SCH (09:00)
[2020-12-23] MEDS: CALCIUM CARB 500MG/VIT D 200 IU TAB PO SCH ×2 (09:00→21:31)
[2020-12-23] MEDS: DONEPEZIL HCL 5 MG TAB PO SCH (09:57)
[2020-12-23] MEDS: THIAMINE HCL 100 MG TABLET PO SCH (09:57)
[2020-12-23] MEDS: VALSARTAN 160 MG TAB PO SCH (09:57)
[2020-12-23] MEDS: MULTIVIT W/ MINERAL TAB PO SCH (09:57)
[2020-12-23] MEDS: GLIMEPIRIDE 2 MG TABLET PO SCH ×2 (09:57→16:19)
[2020-12-23] MEDS: HEPARIN 5000 UNIT/ML 1 ML VIAL SQ SCH ×2 (09:58→21:32)
[2020-12-23] MEDS: levoFLOXacin 250 MG TAB PO SCH (09:58)
[2020-12-23] MEDS: AMLODIPINE 5 MG TAB PO SCH (09:58)
[2020-12-23] MEDS ORDERED: D50W 25 GM/50 ML SYRINGE IV PRN (12:29)
--- NOTE | 2020-12-23 12:42 | P.PN ---
Subjective Date of Service: 12/23/20 Chief Complaint: AMS, unresponsiveness. Subjective: Demented Physical Examination - Vital Signs Temperature: 96.9 F Blood Pressure: 160/67 Pulse: 65 Respirations: 18 Pulse Ox (%): 98 - Studies Microbiology Data (last 24 hrs): 12/17/20 10:37 Blood - Blood Aerobic Blood Culture - Final No growth in 5 days. 12/17/20 10:37 Blood - Blood Anaerobic Blood Culture - Final No growth in 5 days. 12/17/20 10:30 Blood - Blood Aerobic Blood Culture - Final No growth in 5 days. 12/17/20 10:30 Blood - Blood Anaerobic Blood Culture - Final No growth in 5 days. Medications List Reviewed: Yes Assessment & Plan Discharge Plan: Other Plan to discharge in: 72 Hours Physician Review Additional Text: Physical exam: GEN: Patient with dementia. Heart: Regular rate rhythm Lungs: Clear to auscultation Abdomen: Soft nontender nondistended Extremities: Good range of motion to the upper lower extremities no focal deficits. Mentation: Patient with dementia. Impression: Toxic encephalopathy secondary to UTI, urine culture positive for Enterococcus faecalis Diabetes mellitus type 2 with hyperosmolar hyperglycemia Acute renal failure likely dehydration Hypertension Recent left femoral neck fracture status post repair Alzheimer's dementia Hyperlipidemia Plan: Toxic encephalopathy secondary to UTI, urine culture positive for Enterococcus faecalis: Patient stable this time. Patient appears to be at her baseline dementia. Will continue with oral Levaquin for 7 days. Diabetes better controlled. Will transition off IV fluids and start on oral hypoglycemic. Family desires patient ago back to a skilled facility with memory unit. We need to make sure patient does not require any insulin at discharge. Will monitor patient closely. Anticipate improvement over the next several days. Diabetes mellitus type 2 with hyperosmolar hyperglycemia: Discontinue IV fluids. Encourage oral intake. Will start Amaryl. Will make adjustments appropriately. Sliding scale in place. Acute renal failure likely dehydration: Encourage oral intake. Recheck renal function. Hypertension: Continue with home medication. Recent left femoral neck fracture status post repair: Physical therapy to evaluate and assess. Alzheimer's dementia: Overall stable. Monitor closely. DVT prophylaxis: Lovenox Code status: Will address with family. Advanced care planning-30 min: Family desires patient to go to skilled facility. Time Spent Managing Pts Care (In Minutes): 55
[2020-12-23] MEDS: LORazepam 2 MG/ML VIAL IV PRN (13:51)
[2020-12-23] MEDS: INSULIN -REGULAR HUMAN 50 UNIT/0.5 ML ML SQ SCH ×2 (16:19→21:00)
[2020-12-23] MEDS: EZETIMIBE 10 MG TAB PO SCH (21:31)
[2020-12-23] MEDS: TRAZODONE 50 MG TABLET PO SCH (21:31)
[2020-12-24 00:31] VITALS: O2SAT 97
[2020-12-24 04:19] LABS: Absolute Lymphocytes (CBC) 1.2 K/uL (0.7-4.9); Basophils % 0.8 % (0-1.3); Hematocrit 23.9 % (36.0-45.0); Lymphocytes % 20.4 % (15.3-44.8); MPV 10.4 fL (7.6-11.3); RBC Red Blood Cell Count 2.56 M/uL (3.86-4.86)
[2020-12-24 04:32] LABS: Potassium 3.3 mmol/L (3.5-5.1)
[2020-12-24] MEDS: LEVOTHYROXINE SOD 0.125 MG TAB PO SCH (05:39)
[2020-12-24] MEDS: LORazepam 2 MG/ML VIAL IV PRN ×2 (05:39→23:01)
[2020-12-24] MEDS: INSULIN -REGULAR HUMAN 50 UNIT/0.5 ML ML SQ SCH ×4 (07:30→22:52)
[2020-12-24] MEDS: ENSURE HIGH PROTEIN 237 ML CAN PO SCH ×4 (07:30→16:09)
[2020-12-24] MEDS: GLIMEPIRIDE 2 MG TABLET PO SCH ×2 (08:00→16:05)
[2020-12-24] MEDS: VALSARTAN 160 MG TAB PO SCH (08:46)
[2020-12-24] MEDS: MULTIVIT W/ MINERAL TAB PO SCH (08:46)
[2020-12-24] MEDS: DONEPEZIL HCL 5 MG TAB PO SCH (08:46)
[2020-12-24] MEDS: THIAMINE HCL 100 MG TABLET PO SCH (08:47)
[2020-12-24] MEDS: levoFLOXacin 250 MG TAB PO SCH (08:47)
[2020-12-24] MEDS: CALCIUM CARB 500MG/VIT D 200 IU TAB PO SCH ×2 (08:47→22:52)
[2020-12-24] MEDS: AMLODIPINE 5 MG TAB PO SCH (08:47)
[2020-12-24] MEDS: TIMOLOL MALEATE 0.5% OPTH 5 ML BTL EACH EYE SCH (08:47)
[2020-12-24] MEDS ORDERED: POTASSIUM CL SA 10 MEQ TAB PO ONE (09:00)
[2020-12-24] MEDS: HEPARIN 5000 UNIT/ML 1 ML VIAL SQ SCH ×2 (09:06→23:15)
--- NOTE | 2020-12-24 14:55 | P.PN ---
Subjective Date of Service: 12/24/20 Chief Complaint: AMS, unresponsiveness. Subjective: Doing well, Demented Physical Examination - Vital Signs Temperature: 96.9 F Blood Pressure: 142/67 Pulse: 79 Respirations: 18 Pulse Ox (%): 95 - Studies Medications List Reviewed: Yes Assessment & Plan Discharge Plan: Other (SNF) Plan to discharge in: 24 Hours Physician Review Additional Text: Physical exam: GEN: Patient with dementia. Heart: Regular rate rhythm Lungs: Clear to auscultation Abdomen: Soft nontender nondistended Extremities: Good range of motion to the upper lower extremities no focal deficits. Mentation: Patient with dementia. Impression: Toxic encephalopathy secondary to UTI, urine culture positive for Enterococcus faecalis Diabetes mellitus type 2 with hyperosmolar hyperglycemia Acute renal failure likely dehydration Hypertension Recent left femoral neck fracture status post repair Alzheimer's dementia Hyperlipidemia Plan: Toxic encephalopathy secondary to UTI, urine culture positive for Enterococcus faecalis: Patient stable this time. Patient appears to be at her baseline dem entia. Will continue with oral Levaquin for 7 days. Diabetes seems to be well controlled with oral glimepiride. Blood sugars seem to be well controlled currently off Lantus. Will monitor closely. Anticipate stability. Likely to skilled facility tomorrow if approved. Continue physical therapy. Diabetes mellitus type 2 with hyperosmolar hyperglycemia: Patient doing well with glimepiride. Will monitor on medication only. No need for insulin. Acute renal failure likely dehydration: Encourage oral intake. Overall stable Hypertension: Continue with home medication. Recent left femoral neck fracture status post repair: Physical therapy to evaluate and assess. Alzheimer's dementia: Overall stable. Monitor closely. DVT prophylaxis: Lovenox Code status: Will address with family. Advanced care planning-30 min: Family desires patient to go to skilled facility. Anticipate approval back to skilled facility tomorrow. Time Spent Managing Pts Care (In Minutes): 55
[2020-12-24] MEDS ORDERED: POTASSIUM 25 MEQ EFFERV TAB PO ONE (20:00)
[2020-12-24] MEDS: TRAZODONE 50 MG TABLET PO SCH (22:51)
[2020-12-24] MEDS: EZETIMIBE 10 MG TAB PO SCH (23:24)
[2020-12-25] MEDS: ENSURE HIGH PROTEIN 237 ML CAN PO SCH ×3 (07:30→16:30)
[2020-12-25] MEDS: INSULIN -REGULAR HUMAN 50 UNIT/0.5 ML ML SQ SCH ×3 (07:30→16:30)
--- NOTE | 2020-12-25 08:43 | P.DS ---
Admission Date: 12/17/20 Discharge Date: 12/25/20 Primary Care Provider: unknown Disposition: TRANSFER TO SNF - MEDICAL Discharge Condition: GOOD Reason for Admission: AMS, unresponsiveness. Consultations: none Procedures: COVID: Negative CXR: COMPARISON: December 03, 2020 FINDINGS: The lungs appear clear of acute infiltrate. The heart is normal size IMPRESSION: No acute abnormalities displayed ECHO: MEASUREMENTS (cm) DIASTOLIC (NORMALS) SYSTOLIC (NORMALS) IVSd 1.0 (0.6-1.2) LA Diam 2.4 (1.9- 4.0) LVEF 54% LVIDd 3.3 (3.5-5.7) LVIDs 2.4 (2.0-3.5) %FS 27% LVPWd 1.1 (0.6-1.2) Ao Diam 2.6 (2.0-3.7) 2 DIMENSIONAL ASSESSMENT: RIGHT ATRIUM: NORMAL LEFT ATRIUM: NORMAL RIGHT VENTRICLE: NORMAL LEFT VENTRICLE: NORMAL TRICUSPID VALVE: NORMAL MITRAL VALVE: NORMAL PULMONIC VALVE: NORMAL AORTIC VALVE: NORMAL PERICARDIAL EFFUSION: NONE AORTIC ROOT: NORMAL LEFT VENTRICULAR WALL MOTION: NORMAL DOPPLER/COLOR FLOW: NORMAL COMMENTS: TECHNICALLY DIFFICULT STUDY. GROSSLY NORMAL LEFT VENTRICULAR SIZE AND FUNCTION. NO WALL MOTION ABNORMALITY. NO EFFUSION. CT Head: FINDINGS: An intracranial bleed is not seen . The ventricles are normal in caliber. No extra-axial fluid collection is noted. Diffuse cerebral atrophy Fluid within the sinuses/ mastoids is not seen. IMPRESSION: No acute intracranial abnormality is seen CT Ab: FINDINGS: No suspicious findings in the lung bases. Fibrotic stranding is present. No pericardial effusion. The liver, spleen and pancreas show no suspicious findings on non-contrast imaging. Gallbladder and biliary tree are also without suspicious finding. No hydronephrosis or suspicious renal mass. No obstructing or nonobstructing calculi. No significant adrenal finding. Isodense renal masses and pyelonephritis cannot be excluded in the absence of IV contrast. Urinary bladder is fully contracted around a Silva catheter. Pelvic floor assessment is limited due to spray artifact from hip prosthesis. Uterus and atrophic ovaries are seen. No ovarian based mass suspected. No dilated bowel loops or bowel wall thickening. No free air, free fluid or inflammatory stranding. No hernia, mass or bulky lymphadenopathy. No suspicious bony findings. IMPRESSION: Non-contrast enhanced CT abdomen and pelvis imaging show no significant or suspicious finding. Medical Problem List: Toxic encephalopathy secondary to UTI, urine culture positive for Enterococcus faecalis Diabetes mellitus type 2 with hyperosmolar hyperglycemia Acute renal failure likely dehydration Hypertension Recent left femoral neck fracture status post repair Alzheimer's dementia Hyperlipidemia Anemia of chronic disease Hypothyroidism Brief History of Present Illness: 84-year-old female with history of diabetes mellitus type 2, hyperlipidemia, hypertension, glaucoma and hypothyroidism. Patient presented with altered mental status. Patient recently discharged to skilled facility for rehab. Patient found to have elevated blood sugars greater than 900. UTI also identified. Patient admitted for further evaluation and treatment. Hospital Course: Patient presented with toxic encephalopathy related to UTI. Patient also had acute renal failure from dehydration and hyperosmolar hyperglycemia. Patient was admitted for treatment. Patient responded to IV antibiotic therapy, IV fluids and insulin treatment. Patient has done well. Renal function back to baseline. Blood sugars better controlled with oral medication. At discharge she will continue with Levaquin 500 mg daily for 3 more days. UTI prevention provided. Concerning her diabetes mellitus type 2. Patient presented with hyperosmolar hyperglycemia. This has resolved. Blood sugars now better control. Metformin has been discontinued. Patient was placed on Amaryl with good diabetic control. At discharge the patient will continue with Amaryl 2 mg 1 pill twice daily. Recommend to monitor blood sugars at least twice daily. Recommend to maintain blood sugars less than 140 fasting and less than 200 after meals. Patient with history of hypoglycemia. Those need to be monitored closely. Recommend to maintain hemoglobin A1c less than 8.5. Encourage ADA diet. Further adjustment in her medication can be done by assisted physician. If additional medicati on is required recommend not to use Metformin. Recommend to recheck hemoglobin A1c in 3 months to monitor her progress. Patient with hypertension. At discharge she will continue with her medications including Norvasc 5 mg daily and olmesartan 40 mg daily. Recommend to maintain blood pressure less than 130/80. Further adjustment can be done by assisted physician. Patient with Alzheimer's dementia. Behavior appears stable. At discharge she will continue with Aricept 10 mg daily. Patient also takes trazodone 50 mg at bedtime. Fall precautions in place. Patient would benefit with bed rail or place bed mattress to the floor to prevent fall. Further adjustment in medication can be done by assisted physician. Patient with hyperlipidemia. At discharge patient will continue with current medications including Zetia 10 mg daily. Patient with hypothyroidism. At discharge patient will continue with levothyroxine 125 mcg daily. Recommend to recheck TSH and free T4 in 4 to 6 weeks to monitor her progress. Patient with anemia chronic disease. At discharge patient will continue with multivitamin daily and thiamine 100 mg daily. Patient with recent left femoral neck fracture status post repair. Patient ambulating with physical therapy. Patient will continue with physical therapy at the assisted. Fall precautions in place. As mentioned above patient would benefit with bed rails or place bed mattress to the floor to prevent fall. Advanced directives addressed prior to discharge. Family reports patient is DNR. If her condition worsens in the future, family may need to consider hospice. Vital Signs/Physical Exam: Temp Pulse Resp BP Pulse Ox 97.6 F 77 18 149/69 H 97 12/25/20 08:00 12/25/20 08:00 12/25/20 08:00 12/25/20 08:00 12/25/20 08:00 General: Alert, Demented HEENT: Atraumatic Neck: Supple Respiratory: Clear to auscultation bilaterally, Normal air movement Cardiovascular: Normal pulses, Regular rate/rhythm Gastrointestinal: Normal bowel sounds, Soft and benign, Non-distended Integumentary: No tenderness/swelling Neurological: Normal strength at 5/5 x4 extr, Normal tone, Dementia Laboratory Data at Discharge: WBC 5.90 K/uL (4.3-10.9) D 12/24/20 03:31 Hgb 8.0 g/dL (12.0-15.0) L 12/24/20 03:31 Hct 23.9 % (36.0-45.0) L 12/24/20 03:31 Plt Count 217 K/uL (152-406) D 12/24/20 03:31 PT 11.5 SECONDS (9.5-12.5) 12/17/20 10:35 INR 1.00 12/17/20 10:35 Sodium 139 mmol/L (136-145) 12/25/20 03:23 Potassium 4.0 mmol/L (3.5-5.1) 12/25/20 03:23 BUN 8 mg/dL (7-18) 12/25/20 03:23 Creatinine 0.73 mg/dL (0.55-1.3) 12/25/20 03:23 Glucose 210 mg/dL (74-106) H 12/25/20 03:23 Phosphorus 3.4 mg/dL (2.5-4.9) 12/21/20 06:37 Magnesium 2.0 mg/dL (1.8-2.4) 12/22/20 03:34 Total Bilirubin 0.4 mg/dL (0.2-1.0) 12/20/20 03:12 AST 111 U/L (15-37) H D 12/20/20 03:12 ALT 59 U/L (12-78) 12/20/20 03:12 Alkaline Phosphatase 70 U/L (45-117) 12/20/20 03:12 Troponin I < 0.02 ng/mL (0.0-0.045) 12/17/20 22:35 Triglycerides 169 mg/dL (<150) H 12/18/20 04:00 Cholesterol 188 mg/dL (<200) 12/18/20 04:00 HDL Cholesterol 38 mg/dL (40-60) L 12/18/20 04:00 Cholesterol/HDL Ratio 4.95 12/18/20 04:00 Home Medications: Amlodipine [Norvasc*] 5 mg PO DAILY 12/03/20 Donepezil [Aricept*] 10 mg PO DAILY 12/03/20 Ezetimibe 10 mg PO BEDTIME 12/03/20 Olmesartan Medoxomil 40 mg PO DAILY 12/03/20 Timolol [Betimol] 2 drops LEFT EYE DAILY 12/03/20 Trazodone [Desyrel*] 50 mg PO BEDTIME 12/03/20 Calcium Carbonate/Vitamin D3 [Oscal 500 + Vit D 200 Iu Tab*] 1 tab PO BID #60 tab 12/13/20 Multivit with Iron,Minerals [Complete Senior] 1 each PO DAILY #90 tablet 12/13/20 Thiamine HCl 100 mg PO DAILY #90 tablet 12/13/20 Levothyroxine [Synthroid*] 125 mcg PO DAILYAC 12/17/20 Glimepiride [Amaryl*] 2 mg PO BIDWM #60 tab 12/25/20 Levofloxacin [Levaquin] 500 mg PO DAILY #3 tablet 12/25/20 New Medications: Glimepiride [Amaryl*] 2 mg PO BIDWM #60 tab Levofloxacin [Levaquin] 500 mg PO DAILY #3 tablet Physician Discharge Instructions: Patient presented with toxic encephalopathy related to UTI. Patient also had acute renal failure from dehydration and hyperosmolar hyperglycemia. Patient was admitted for treatment. Patient responded to IV antibiotic therapy, IV fluids and insulin treatment. Patient has done well. Renal function back to baseline. Blood sugars better controlled with oral medication. At discharge she will continue with Levaquin 500 mg daily for 3 more days. UTI prevention provided. Concerning her diabetes mellitus type 2. Patient presented with hyperosmolar hyperglycemia. This has resolved. Blood sugars now better control. Metformin has been discontinued. Patient was placed on Amaryl with good diabetic control. At discharge the patient will continue with Amaryl 2 mg 1 pill twice daily. Recommend to monitor blood sugars at least twice daily. Recommend to maintain blood sugars less than 140 fasting and less than 200 after meals. Patient with history of hypoglycemia. Those need to be monitored closely. Recommend to maintain hemoglobin A1c less than 8.5. Encourage ADA diet. Further adjustment in her medication can be done by assisted physician. If additional medication is required recommend not to use Metformin. Recommend to recheck hemoglobin A1c in 3 months to monitor her progress. Patient with hypertension. At discharge she will continue with her medications including Norvasc 5 mg daily and olmesartan 40 mg daily. Recommend to maintain blood pressure less than 130/80. Further adjustment can be done by assisted physician. Patient with Alzheimer's dementia. Behavior appears stable. At discharge she will continue with Aricept 10 mg daily. Patient also takes trazodone 50 mg at bedtime. Fall precautions in place. Patient would benefit with bed rail or place bed mattress to the floor to prevent fall. Further adjustment in medication can be done by assisted physician. Patient with hyperlipidemia. At discharge patient will continue with current medications including Zetia 10 mg daily. Patient with hypothyroidism. At discharge patient will continue with levothyroxine 125 mcg daily. Recommend to recheck TSH and free T4 in 4 to 6 weeks to monitor her progress. Patient with anemia chronic disease. At discharge patient will continue with multivitamin daily and thiamine 100 mg daily. Patient with recent left femoral neck fracture status post repair. Patient ambulating with physical therapy. Patient will continue with physical therapy at the assisted. Fall precautions in place. As mentioned above patient would benefit with bed rails or place bed mattress to the floor to prevent fall. Advanced directives addressed prior to discharge. Family reports patient is DNR. If her condition worsens in the future, family may need to consider hospice. Diet: ADA Activity: Fall precautions Followup: Shashank Mathew MD [Primary Care Provider] - Time spent managing pt's care (in minutes): 55
[2020-12-25] MEDS: VALSARTAN 160 MG TAB PO SCH (10:10)
[2020-12-25] MEDS: LEVOTHYROXINE SOD 0.125 MG TAB PO SCH (10:10)
[2020-12-25] MEDS: levoFLOXacin 250 MG TAB PO SCH (10:11)
[2020-12-25] MEDS: GLIMEPIRIDE 2 MG TABLET PO SCH ×2 (10:11→17:00)
[2020-12-25] MEDS: MULTIVIT W/ MINERAL TAB PO SCH (10:11)
[2020-12-25] MEDS: AMLODIPINE 5 MG TAB PO SCH (10:12)
[2020-12-25] MEDS: CALCIUM CARB 500MG/VIT D 200 IU TAB PO SCH (10:12)
[2020-12-25] MEDS: DONEPEZIL HCL 5 MG TAB PO SCH (10:12)
[2020-12-25] MEDS: HEPARIN 5000 UNIT/ML 1 ML VIAL SQ SCH (10:13)
[2020-12-25] MEDS: THIAMINE HCL 100 MG TABLET PO SCH (10:14)
[2020-12-25] MEDS: LORazepam 2 MG/ML VIAL IV PRN (11:23)
[2020-12-25 16:45] VITALS: BP 118/54; TEMP 97.1
== END 2020-12-25 19:35 | DRG 637 ==
LOC: ER 09:10 → ERHOLD 13:18 → 4TH 12-19 10:31
PROVIDERS: ADMIT Hospitalist; ATTEND Hospitalist
DX: E11.00 Type 2 diabetes mellitus with hyperosmolarity without nonketotic hyperglycemic-hyperosmolar coma (NKHHC) (principal); G92 Toxic encephalopathy; N39.0 Urinary tract infection, site not specified; N17.9 Acute kidney failure, unspecified; B95.2 Enterococcus as the cause of diseases classified elsewhere; E78.5 Hyperlipidemia, unspecified; H40.9 Unspecified glaucoma; E03.9 Hypothyroidism, unspecified; E86.0 Dehydration; G30.9 Alzheimer's disease, unspecified; F02.80 Dementia in other diseases classified elsewhere, unspecified severity, without behavioral disturbance, psychotic disturbance, mood disturbance, and anxiety; D64.9 Anemia, unspecified; S72.002D Fracture of unspecified part of neck of left femur, subsequent encounter for closed fracture with routine healing; Z66 Do not resuscitate; Z20.822 Contact with and (suspected) exposure to COVID-19
CPT/HCPCS: 36415; 51702; 70450; 71045; 74176; 74177; 76377; 80048; 80053; 80061; 80076; 81003; 81015; 82010; 82533; 82805; 82947; 83036; 83605; 83735; 83880; 84100; 84132; 84145; 84484; 85014; 85018; 85025; 85610; 86850; 86900; 86901; 87040; 87077; 87086; 87088; 87186; 93005; 93306; 97116; 97161; 97530; 99285; J0610; J0696; J1644; J1720; J1815; J2270; J2405; J3475; J3480; J7030; J7040; J7050; J7799; Q9967; U0003

== ENCOUNTER 2020-12-28 17:37 | Inpatient (IN) | payer OTHER ==
[2020-12-28 17:55] LABS: Arterial Blood Carboxyhemoglob 1.6 % (0-1.5); Blood Gas Oxyhemoglobin 91.8 % (94-97); Blood O2 Saturation 94.3 % (92-98.5)
[2020-12-28 18:09] LABS: Urine Blood Negative (Negative); Urine Glucose 3+ (Negative); Urine Protein 1+ (Negative); Urine Specific Gravity >=1.030 (1.005-1.030)
[2020-12-28 18:36] LABS: Calcium Oxalate Crystals- Ur PRESENT (NONE SEEN); Urine Bacteria <20 /HPF (<20); Urine RBC <5 /HPF (NONE SEEN)
[2020-12-28 18:41] LABS: Absolute Lymphocytes (CBC) 0.5 K/uL (0.7-4.9); Basophils % 0.4 % (0-1.3); Hematocrit 23.4 % (36.0-45.0); MPV 9.7 fL (7.6-11.3); RBC Red Blood Cell Count 2.45 M/uL (3.86-4.86)
[2020-12-28 18:42] LABS: Barbiturates NEGATIVE (NEGATIVE); Benzodiazepines NEGATIVE (NEGATIVE); Cocaine NEGATIVE (NEGATIVE); METHAMPHETAM NEGATIVE (NEGATIVE); Methadone NEGATIVE (NEGATIVE); Opiates NEGATIVE (NEGATIVE); Phencyclidine NEGATIVE (NEGATIVE); THC Cannibis NEGATIVE (NEGATIVE)
--- NOTE | 2020-12-28 18:51 | RAD REPORT ---
EXAM DESCRIPTION: RAD - Chest Single View - 12/28/2020 6:15 pm CLINICAL HISTORY: AMS COMPARISON: Portable December 17 TECHNIQUE: AP portable chest image was obtained 12/28/2020 6:15 pm . FINDINGS: Lung volumes are low. Prominent interstitial opacification is present not substantially di fferent from comparison. Severity of baseline disease could mask early acute interstitial edema or in filtrate. Cardiac silhouette is enlarged. Pulmonary vasculature similar or slightly increased. Trache a is midline. No measurable pleural effusion and no pneumothorax. No acute bony abnormality seen. No acute aortic findings suspected. IMPRESSION: Extensive chronic interstitial lung disease not substantially different from comparison. Severity of chronic disease could mask early edema or infiltrate. Cardiomegaly and mild vascular engo rgement suggests a component of failure or volume overload.
[2020-12-28 18:53] LABS: ALT/SGPT 47 U/L (12-78); AST/SGOT 47 U/L (15-37); Albumin 2.8 g/dL (3.4-5.0); Alkaline Phosphatase 76 U/L (45-117); BUN Blood Urea Nitrogen 42 mg/dL (7-18); Bicarbonate 24 mmol/L (21-32); Bilirubin Direct < 0.1 mg/dL (0-0.2); Bilirubin Total 0.2 mg/dL (0.2-1.0); Creatine Phosphokinase 714 U/L (26-192); Glucose Level 152 mg/dL (74-106); Lipase 73 U/L (73-393); Magnesium 2.1 mg/dL (1.8-2.4); Potassium 3.2 mmol/L (3.5-5.1); Protein, Total 6.2 g/dL (6.4-8.2); Sodium Level 144 mmol/L (136-145); Troponin (Emerg Dept Use Only) < 0.02 ng/mL (0.0-0.045)
--- NOTE | 2020-12-28 18:55 | RAD REPORT ---
EXAM DESCRIPTION: CT - Head Brain Wo Cont - 12/28/2020 6:48 pm CLINICAL HISTORY: AMS, minimally responsive COMPARISON: Head Brain Wo Cont dated 12/17/2020 TECHNIQUE: Axial 5 mm thick images of the head were obtained without IV contrast. All CT scans are performed using dose optimization technique as appropriate and may include automated exposure control or mA/KV adjustment according to patient size. FINDINGS: No intracranial hemorrhage, mass, edema or shift of mid-line structures. No acute cortical based infarction, cortical edema or sulcal effacement. No abnormal extra-axial fluid collections. Mo derate severity atrophy and chronic ischemic changes are present. Ventriculomegaly is in proportion t o the amount of volume loss. Dense arterial tree calcifications are present. Mastoid air cells and visualized portions of the paranasal sinuses are clear. No acute bony findings. IMPRESSION: Negative non-contrast CT head examination for acute findings. Moderate severity atrophy and chronic ischemic change matching the December 17 comparison.
[2020-12-28] MEDS ORDERED: NA CHLORIDE 0.9% 2,000 ML ONE (18:59)
--- NOTE | 2020-12-28 19:00 | RAD REPORT ---
EXAM DESCRIPTION: CT - Chest For Pe Angio - 12/28/2020 6:48 pm CLINICAL HISTORY: AMS, recent surgery COMPARISON: Chest Single View dated 12/28/2020 TECHNIQUE: Dynamically enhanced 3 mm thick images of the chest were obtained during administration o f approximately 150mL Isovue 370 IV contrast. Coronal and oblique MIP reconstruction images were gene rated and reviewed. Exam utilizes a protocol to evaluate the pulmonary arterial tree. All CT scans are performed using dose optimization technique as appropriate and may include automated exposure control or mA/KV adjustment according to patient size. FINDINGS: No pulmonary emboli are identified. The aorta as imaged shows no acute or suspicious finding. No pericardial thickening or effusion. Patchy parenchymal opacification in stranding changes are present in the right middle lobe and inferi or aspect of the lingula left upper lobe. There is no lower lobe mass or consolidation. Interstitial markings are prominent. There is complete opacification of the bronchus intermedius and multiple segm ental and subsegmental bronchi of the right lower lobe. This could be mucous plugging. Aspiration is possible. An obstructive endobronchial mass is possible. No other bronchial obstructive process seen. No pleural effusion or pleural thickening. No mediastinal or hilar suspicious masses. No chest wall masses or abnormal axillary lymphadenopathy. IMPRESSION: No pulmonary emboli identified. Patchy opacification in the right middle lobe and lingula of the left upper lobe favored to be scarri ng or atelectasis. Minimal infiltrate is possible. Complete opacification of the bronchus intermedius and numerous right lower lobe segmental and subseg mental branches. This could be mucous plugging from an infectious/inflammatory process or possibly du e to aspiration. An obstructing endobronchial mass is a differential consideration.
--- NOTE | 2020-12-28 19:23 | ER ---
Nurse's Notes [facility] Name: Lana Yang Age: 84 yrs Sex: Female : 1935 Arrival Date: 12/28/2020 Time: 17:39 Bed 2 Private MD: Diagnosis: Hypothermia;Aspiration Pneumonia;Altered Mental Status Presentation: 12/28 17:40 Chief complaint: EMS states: DECREASED LOC, BLOOD SUGAR PROBLEMS. Coronavirus screen: bp At this time, the client does not indicate any symptoms associated with coronavirus-19. Ebola Screen: No symptoms or risks identified at this time. Initial Sepsis Screen: Does the patient meet any 2 criteria? No. Patient's initial sepsis screen is negative. Does the patient have a suspected source of infection?. Risk Assessment: Do you want to hurt yourself or someone else? Patient reports no desire to harm self or others. Onset of symptoms is unknown. Care prior to arrival: IV initiated. 20 GA, in the left forearm, Glucose check: 235. 17:40 Method Of Arrival: EMS: [facility] bp 17:40 Acuity: FATEMEH 1 bp Triage Assessment: 18:07 General: Appears distressed, Behavior is unresponsive. Pain: Unable to use pain scale. bp Patient is unresponsive. EENT: No deficits noted. Neuro: Level of Consciousness is unresponsive, Oriented to none. Cardiovascular: No deficits noted. Respiratory: Airway is patent Respiratory effort is even, shallow, Respiratory pattern is regular. GI: No signs and/or symptoms were reported involving the gastrointestinal system. : No signs and/or symptoms were reported regarding the genitourinary system. Derm: No deficits noted. Musculoskeletal: No deficits noted. Historical: - Allergies: 18:07 Codeine; bp 18:07 PENICILLINS; bp - Home Meds: 18:07 amlodipine 5 mg tab [Active]; Aricept 10 mg Oral tab 1 tab once daily [Active]; timolol bp maleate gel forming soln 0.5% 2 drops left eye bedtime [Active]; Lovenox 40 mg/0.4 mL Sub-Q syrg once daily [Active]; levothyroxine 125 mcg tab once daily [Active]; metformin 1,000 mg Oral tab 1 tab 2 times per day [Active]; multivitamin Oral tab daily [Active]; Norvasc 5 mg Oral tab 1 tab once daily [Active]; insulin NPH and regular human subcutaneous [Active]; olmesartan 40 mg daily Oral [Active]; ezetimibe 10 mg bedtime Oral [Active]; glimepiride 2 mg Oral tab 1 tab once daily [Active]; Januvia 50 mg Oral tab once daily [Active]; Lantus 100 unit/mL Sub-Q soln 10 tab nightly [Active]; Levaquin 500 mg Oral tab 1 tab once daily [Active]; - PMHx: 18:07 Cataracts; Dementia; Diabetes - IDDM; Glaucoma; High Cholesterol; Hyperlipidemia; bp Hypertension; Hypothyroidism; insomnia; TIA; - Immunization history:: Adult Immunizations unknown. - Social history:: Smoking status: unknown. - Family history:: not pertinent. - History obtained from: EMS. Screenin:12 Abuse screen: Denies threats or abuse. Denies injuries from another. Nutritional bp screening: No deficits noted. Tuberculosis screening: No symptoms or risk factors identified. Fall Risk None identified. Assessment: 18:12 General: SEE TRIAGE NOTE. bp 18:31 Reassessment: Pt taken to CT via stretcher. ph 19:30 General: Appears in no apparent distress. Behavior is unresponsive. Responsive to lp1 painful stimuli. 19:30 Pain: Unable to use pain scale. FLACC scale score is 0 out of 10. Neuro: Level of lp1 Consciousness is unresponsive, Responsive to painful stimuli, moans. Oriented to none Pupils are PERRLA. Cardiovascular: Capillary refill < 3 seconds in bilateral fingers toes Patient's skin is warm and dry. Respiratory: Airway is patent Respiratory effort is even, Respiratory pattern is regular, Breath sounds are diminished in left posterior lower lobe and right posterior lower lobe. GI: Abdomen is non-distended. : Silva in place to gravity drainage. EENT: No signs and/or symptoms were reported regarding the EENT system. Derm: Skin is fragile, is thin, Skin is dry, Skin is normal, Bruising, yellow in color to left hip, surgical scar in healing stage, site intact. Musculoskeletal: Range of motion: intact in all extremities. 19:40 Reassessment: STEVEN Jin at bedside to discuss plan of care with . lp1 20:00 Reassessment: Patient appears in no apparent distress at this time. Patient continued lp1 with samantha hugger in place; family at bedside; Per Max Candelario, continuing to monitor patient vitals for stability. Vital Signs: 17:40 BP 76 / 36; bp 18:07 BP 112 / 60; Pulse 64; Resp 18; Temp 94.1(C); Pulse Ox 97% on R/A; ph 18:07 BP 112 / 60; rn 18:29 BP 101 / 62; Pulse 62; Resp 19; Temp 94.5(C); Pulse Ox 97% on R/A; ph 19:30 BP 123 / 51; Pulse 72; Resp 20; Temp 94.6(C); Pulse Ox 97% on R/A; lp1 19:45 BP 125 / 90; Pulse 71; Resp 17; Temp 94.7(C); Pulse Ox 98% on R/A; lp1 20:00 BP 117 / 51; Pulse 71; Resp 16; Temp 94.7(C); Pulse Ox 98% on R/A; lp1 20:09 Weight 56.7 kg (R); lp1 20:15 BP 108 / 52; Pulse 63; Resp 17; Temp 94.8(C); Pulse Ox 98% on R/A; lp1 20:30 BP 101 / 64; Pulse 74; Resp 19; Temp 95(C); Pulse Ox 97% on R/A; lp1 20:45 BP 118 / 52; Pulse 74; Resp 15; Temp 95.1(C); Pulse Ox 97% on R/A; lp1 21:00 BP 106 / 89; Pulse 73; Resp 13; Temp 95.3(C); Pulse Ox 97% on R/A; lp1 ED Course: 17:39 Patient arrived in ED. aa5 17:40 Maintain EMS IV. Dressing intact. Good blood return noted. Site clean \T\ dry. Gauge \T\ bp site: 20 G LEFT FA. 17:43 Ulysses Anguiano MD is Attending Physician. rn 17:52 Jony Byrnes, STEPHIE is Primary Nurse. bp 17:57 Triage completed. bp 18:06 Silva cath inserted, using sterile technique, 16 Fr., by wa, balloon inflated, to ph gravity drainage, urine specimen collected. returned clear yellow urine. Maintain EMS IV. Dressing intact. Good blood return noted. Site clean \T\ dry. Gauge \T\ site: 20 RFA. 18:07 Arm band placed on. bp 18:12 Urine Drug Screen Sent. mh5 18:12 Urine Culture Sent. mh5 18:12 Urine Microscopic Only Sent. mh5 18:14 UDS Sent. mh5 18:14 Lipase Sent. mh5 18:14 Hepatic Function Sent. mh5 18:14 Basic Metabolic Panel Sent. mh5 18:14 CBC with Diff Sent. mh5 18:14 CPK Sent. mh5 18:14 Magnesium Sent. mh5 18:14 Protime (+inr) Sent. mh5 18:15 XRAY Chest (1 view) In Process Unspecified. EDMS 18:15 Ptt, Activated Sent. mh5 18:15 Lipase Sent. mh5 18:17 Patient has correct armband on for positive identification. Placed in gown. Bed in low mh5 position. Call light in reach. Side rails up X2. Adult w/ patient. Warm blanket given. Pillow given. quality assurance monitor final on. Pulse ox on. NIBP on. 18:18 Initial lab(s) drawn, by ED staff, sent to lab. First set of blood cultures drawn by ED [facility] staff, Second set of blood cultures drawn by ED staff, Urine collected: Silva catheter specimen, tea colored, EKG done, by ED staff, reviewed by Ulysses Anguiano MD. 18:25 Thermoregulation: Samantha blanket applied. ph 18:48 CT Head Brain wo Cont In Process Unspecified. EDMS 18:48 CT Chest For PE Angio In Process Unspecified. EDMS 19:04 Attending Physician role handed off by Ulysses Anguiano MD 7 19:04 Malik Smith MD is Attending Physician. [facility] 19:15 Primary Nurse role handed off by Jony Byrnes, STEPHIE mw2 19:21 Omar Granados DO is Hospitalizing Provider. 7 19:21 Notified ED physician of a critical lab result(s). lactate of 7.4 Dr Smith notified. bb 19:38 Marline Barron, STEPHIE is Primary Nurse. lp1 19:39 No provider procedures requiring assistance completed. Patient admitted, IV remains in lp1 place. Administered Medications: 18:00 Drug: NS 0.9% 1000 ml Route: IV; Rate: 1000 ml; Site: left forearm; bp 20:41 Follow up: IV Status: Completed infusion; IV Intake: 1000ml lp1 18:25 Drug: NS 0.9% 1000 ml Route: IV; Rate: 1000 ml; Site: left forearm; bp 21:07 Follow up: IV Status: Completed infusion; IV Intake: 701ml ; Total of sepsis bolus lp1 19:25 Drug: LevaQUIN (levofloxacin) 750 mg Volume: 150 ml; Route: IVPB; Infused Over: 90 lp1 mins; Site: right hand; 21:07 Follow up: IV Status: Completed infusion; IV Intake: 150ml lp1 19:25 Drug: Flagyl (metroNIDAZOLE) 500 mg Volume: 100 ml; Route: IVPB; Rate: 200 ml/hr; lp1 Infused Over: 30 mins; Site: left hand; 20:41 Follow up: IV Status: Completed infusion; IV Intake: 100ml lp1 21:07 Not Given (Patient give sepsis bolus amount): NS 0.9% (30 ml/kg) 30 ml/kg IV at bolus lp1 once; Sepsis Protocol Intake: 20:41 IV: 1000ml; Total: 1000ml. lp1 20:41 IV: 100ml; Total: 1100ml. lp1 21:07 IV: 701ml; Total: 1801ml. lp1 21:07 IV: 150ml; Total: 1951ml. lp1 Outcome: 19:23 Decision to Hospitalize by Provider. 7 19:39 critical lp1 19:39 Instructed on the need for admit. 21:11 Admitted to ICU room ER bed 9, on monitor, with chart, Report called to STEPHIE Jackson lp1 21:18 Patient left the ED. mw2 Signatures: Dispatcher [employer] EDMS Melody Foy RN Ulysses Rose MD MD rn Calderon, Audri, RN RN 5 Marline Barron RN RN lp1 Irene Davenport RN RN ph Martinez, Maria 5 Jony Byrnes RN RN bp [place]brook, MyKena mw2 Malik Smith MD MD 7 Corrections: (The following items were deleted from the chart) 12/29 01:04 06/12 19:30 General: Appears in no apparent distress. Behavior is unresponsive. lp1 Responsive to painful stimuli. lp1
--- NOTE | 2020-12-28 19:23 | EDPHYS ---
Physician Documentation [facility] Name: Lana Yang Age: 84 yrs Sex: Female : 1935 Arrival Date: 12/28/2020 Time: 17:39 Bed 2 Private MD: ED Physician Malik Smith HPI: 12/28 17:47 This 84 yrs old Female presents to ER via Unassigned with complaints of AMS. rn 17:47 The patient presents with decreased mental status, decreased responsiveness. Onset: The rn symptoms/episode began/occurred at an unknown time. Possible causes: unknown. Associated signs and symptoms:. Current symptoms: In the emergency department the patient's symptoms have improved. The patient has experienced similar episodes in the past. The patient has been recently been admitted at [facility]. Per EMS report, called out by snf for decreased responsiveness, snf states blood sugar > 700, have been giving insulin "all day", glucose down to 200s, EMS reports tried narcan with some improvement, now patient moving extremities and breathing ok on her own, but still decreased responsiveness. . Historical: - Allergies: 18:07 Codeine; bp 18:07 PENICILLINS; bp - Home Meds: 18:07 amlodipine 5 mg tab [Active]; Aricept 10 mg Oral tab 1 tab once daily [Active]; timolol bp maleate gel forming soln 0.5% 2 drops left eye bedtime [Active]; Lovenox 40 mg/0.4 mL Sub-Q syrg once daily [Active]; levothyroxine 125 mcg tab once daily [Active]; metformin 1,000 mg Oral tab 1 tab 2 times per day [Active]; multivitamin Oral tab daily [Active]; Norvasc 5 mg Oral tab 1 tab once daily [Active]; insulin NPH and regular human subcutaneous [Active]; olmesartan 40 mg daily Oral [Active]; ezetimibe 10 mg bedtime Oral [Active]; glimepiride 2 mg Oral tab 1 tab once daily [Active]; Januvia 50 mg Oral tab once daily [Active]; Lantus 100 unit/mL Sub-Q soln 10 tab nightly [Active]; Levaquin 500 mg Oral tab 1 tab once daily [Active]; - PMHx: 18:07 Cataracts; Dementia; Diabetes - IDDM; Glaucoma; High Cholesterol; Hyperlipidemia; bp Hypertension; Hypothyroidism; insomnia; TIA; - Immunization history:: Adult Immunizations unknown. - Social history:: Smoking status: unknown. - Family history:: not pertinent. - History obtained from: EMS. ROS: 17:47 Unable to obtain ROS due to baseline dementia, obtunded state. rn Exam: 17:47 Constitutional: This is a well developed, well nourished patient who is somnolent, rn moves eyes, withdraws from pain Head/Face: Normocephalic, atraumatic. ENT: dry MM Cardiovascular: Regular rate, irregular rhythm Respiratory: No increased work of breathing, no retractions or nasal flaring. Abdomen/GI: soft, non-tender Skin: Warm, dry, no signs of cellulitis. + ecchymosis bilateral hip/groin. MS/ Extremity: Pulses equal, no cyanosis. Neuro: Somnolent, flinches to pain and grimaces to pain, withdraws from pain, no speech. Vital Signs: 17:40 BP 76 / 36; bp 18:07 BP 112 / 60; Pulse 64; Resp 18; Temp 94.1(C); Pulse Ox 97% on R/A; ph 18:07 BP 112 / 60; rn 18:29 BP 101 / 62; Pulse 62; Resp 19; Temp 94.5(C); Pulse Ox 97% on R/A; ph 19:30 BP 123 / 51; Pulse 72; Resp 20; Temp 94.6(C); Pulse Ox 97% on R/A; lp1 19:45 BP 125 / 90; Pulse 71; Resp 17; Temp 94.7(C); Pulse Ox 98% on R/A; lp1 20:00 BP 117 / 51; Pulse 71; Resp 16; Temp 94.7(C); Pulse Ox 98% on R/A; lp1 20:09 Weight 56.7 kg (R); lp1 20:15 BP 108 / 52; Pulse 63; Resp 17; Temp 94.8(C); Pulse Ox 98% on R/A; lp1 20:30 BP 101 / 64; Pulse 74; Resp 19; Temp 95(C); Pulse Ox 97% on R/A; lp1 20:45 BP 118 / 52; Pulse 74; Resp 15; Temp 95.1(C); Pulse Ox 97% on R/A; lp1 21:00 BP 106 / 89; Pulse 73; Resp 13; Temp 95.3(C); Pulse Ox 97% on R/A; lp1 MDM: 17:43 Patient medically screened. rn 18:57 Transition of care: After a detail discussion of the patient's case, care is rn transferred to Malik Smith MD. 19:20 Differential Diagnosis: electrolyte abnormality, hypoglycemia, pneumonia, sepsis, UTI, mh7 volume depletion. Data reviewed: vital signs, nurses notes, lab test result(s), cardiac enzymes, CBC, electrolytes, urinalysis, EKG, radiologic studies, CT scan, plain films. Data interpreted: Pulse oximetry: on room air is 97 %. Interpretation: normal. Counseling: I had a detailed discussion with the patient and/or guardian regarding: the historical points, exam findings, and any diagnostic results supporting the discharge/admit diagnosis, lab results, radiology results, the need for further work-up and treatment in the hospital. Response to treatment: the patient's symptoms have mildly improved after treatment. 12/28 17:45 Order name: Lipase rn 12/28 17:45 Order name: Hepatic Function rn 12/28 17:45 Order name: UDS rn 12/28 17:45 Order name: Basic Metabolic Panel rn 12/28 17:45 Order name: CBC with Diff rn 12/28 17:45 Order name: CPK rn 12/28 17:45 Order name: Magnesium rn 12/28 17:45 Order name: Protime (+inr); Complete Time: 07:48 12/28 17:45 Order name: Ptt, Activated rn 12/28 17:45 Order name: Troponin (emerg Dept Use Only); Complete Time: 19:59 12/28 17:45 Order name: Urine Culture rn 12/28 17:45 Order name: Urine Microscopic Only; Complete Time: 18:39 rn 12/28 17:46 Order name: Lipase; Complete Time: 19:59 EDMS 12/28 17:46 Order name: Liver (Hepatic) Function; Complete Time: 19:59 EDMS 12/28 17:45 Order name: CT Head Brain wo Cont; Complete Time: 18:58 rn 12/28 17:46 Order name: Urine Drug Screen; Complete Time: 18:48 EDMS 12/28 17:46 Order name: Basic Metabolic Panel; Complete Time: 19:59 EDMS 12 17:46 Order name: CBC with Automated Diff; Complete Time: 07:48 EDMS 12 17:46 Order name: Creatine Phosphokinase; Complete Time: 19:59 EDMS 12 17:46 Order name: Magnesium; Complete Time: 19:59 EDMS 12/28 17:46 Order name: ABG; Complete Time: 17:57 rn 12/28 17:46 Order name: Ketone, Serum; Complete Time: 19:59 rn 12 17:56 Order name: Blood Culture Adult (2) rn 12/28 17:56 Order name: Procalcitonin; Complete Time: 19:59 rn 12/28 17:56 Order name: Lactate; Complete Time: 19:59 12 18:09 Order name: Urine Dipstick-Ancillary; Complete Time: 18:10 EDMS 12/28 18:47 Order name: Manual Differential; Complete Time: 07:48 EDAZ 12/28 19:42 Order name: COVID-19 : Document "Date of Symptom Onset" if Symptomatic. 2 12/28 20:56 Order name: SARS-COV-2 RT PCR; Complete Time: 07:48 EDAZ 12/28 17:45 Order name: EKG; Complete Time: 17:46 rn 12/28 17:45 Order name: Cardiac monitoring; Complete Time: 18:12 12/28 17:45 Order name: EKG - Nurse/Tech; Complete Time: 18:12 rn 12/28 17:45 Order name: IV Saline Lock; Complete Time: 18:13 rn 12/28 17:45 Order name: Labs collected and sent; Complete Time: 18:13 rn 12 17:45 Order name: NPO; Complete Time: 18:13 rn 12 17:45 Order name: O2 Per Protocol; Complete Time: 18:13 rn 12/28 17:45 Order name: O2 Sat Monitoring; Complete Time: 18:13 rn 12 17:45 Order name: Urine Dipstick-Ancillary (obtain specimen); Complete Time: 18:13 rn 12 17:45 Order name: XRAY Chest (1 view); Complete Time: 18:52 rn 06/12 17:45 Order name: Silva; Complete Time: 18:13 rn 12/28 17:46 Order name: Glucose Level; Complete Time: 18:12 rn 12/28 17:56 Order name: CT Chest For PE Angio; Complete Time: 19:02 rn 12/28 18:49 Order name: Labs - recollect needed: recollect blue top/ clotted; Complete Time: 19:38 eb Administered Medications: 18:00 Drug: NS 0.9% 1000 ml Route: IV; Rate: 1000 ml; Site: left forearm; bp 20:41 Follow up: IV Status: Completed infusion; IV Intake: 1000ml lp1 18:25 Drug: NS 0.9% 1000 ml Route: IV; Rate: 1000 ml; Site: left forearm; bp 21:07 Follow up: IV Status: Completed infusion; IV Intake: 701ml ; Total of sepsis bolus lp1 19:25 Drug: LevaQUIN (levofloxacin) 750 mg Volume: 150 ml; Route: IVPB; Infused Over: 90 lp1 mins; Site: right hand; 21:07 Follow up: IV Status: Completed infusion; IV Intake: 150ml lp1 19:25 Drug: Flagyl (metroNIDAZOLE) 500 mg Volume: 100 ml; Route: IVPB; Rate: 200 ml/hr; lp1 Infused Over: 30 mins; Site: left hand; 20:41 Follow up: IV Status: Completed infusion; IV Intake: 100ml lp1 21:07 Not Given (Patient give sepsis bolus amount): NS 0.9% (30 ml/kg) 30 ml/kg IV at bolus lp1 once; Sepsis Protocol Disposition: 12/28/20 19:23 Hospitalization ordered by Omar Granados for Inpatient Admission. Preliminary diagnosis are Hypothermia, Aspiration Pneumonia, Altered Mental Status. - Bed requested for Intensive Care Unit. - Status is Inpatient Admission. mw2 - Condition is Serious. - Problem is new. - Symptoms have improved. Signatures: Dispatcher [employer] EDMS Ulysses Anguiano MD MD rn Pena, Laura, RN RN lp1 Max Candelario, ROAD DESIGN DRAFTSPERSON-C ROAD DESIGN DRAFTSPERSON-Cla1 Jony Byrnes RN RN Yasir Shah mw2 Radha Mcmahan Maurice, MD MD 7 Corrections: (The following items were deleted from the chart) 20:02 19:42 CORONAVIRUS ordered. EDAZ EDMS 20:59 19:23 Hospitalization Ordered by Omar Granados DO for Inpatient Admission. Preliminary mw2 diagnosis is Hypothermia; Aspiration Pneumonia; Altered Mental Status. Bed requested for Intensive Care Unit. Status is Inpatient Admission. Condition is Serious. Problem is new. Symptoms have improved. [email or web address] 21:18 20:59 12/28/2020 19:23 Hospitalization Ordered by Omar Granados DO for Inpatient mw2 Admission. Preliminary diagnosis is Hypothermia; Aspiration Pneumonia; Altered Mental Status. Bed requested for Intensive Care Unit. Status is Inpatient Admission. Condition is Serious. Problem is new. Symptoms have improved. mw2
[2020-12-28] MEDS ORDERED: Levofloxacin 750mg IV 750 MG/150 ML BAG IV ONE (19:34)
[2020-12-28] MEDS ORDERED: METRONIDAZOLE 500mg IVPB 500 MG/100 ML BAG IV ONE (19:35)
[2020-12-28 19:59] LABS: Blood Morphology Comment NOT SEEN (NOT SEEN); Platelet Estimate ADEQ
--- NOTE | 2020-12-28 20:39 | P.HP ---
Certification for Inpatient Patient admitted to: Inpatient With expected LOS: >2 Midnights Patient will require the following post-hospital care: None Practitioner: I am a practitioner with admitting privileges, knowledge of patient current condition, hospital course, and medical plan of care. Services: Services provided to patient in accordance with Admission requirements found in Title 42 Section 412.3 of the Code of Federal Regulations Patient History Date of Service: 12/28/20 Primary Care Provider: Dr. kearney Reason for admission: Severe sepsis, aspiration pneumonia History of Present Illness: 84-year-old female with history of diabetes mellitus type 2, hypertension, recent left femoral neck fracture with repair, Alzheimer's dementia, hyperlipidemia, anemia chronic disease, hypothyroidism presents emergency department for hyperglycemia, hypotension, altered mental status. Patient was recently discharged to [facility] facility for rehab, nursing staff reports that patient's blood sugar has been in the 700 set the day today and she has been receiving insulin doses periodically in, patient then had episode of weakness with profound hypotension and cyanosis and EMS was called. During transportation to the emergency department patient was very hypotensive with blood pressure around 50/20. Upon arrival to the emergency department patient's blood pressure had improved slightly. Patient was given 30 cc/kg sepsis fluid bolus in the emergency department, blood pressure has improved nicely and is currently around 120 systolic. Blood sugar 150. White blood cell count 9 hemoglobin 7.7 hematocrit 23.4 ABG pH 7.44 potassium 3.2 creatinine 1.57 GFR 31 glucose 152 lactic acid 7.4 initially repeat pending. Patient had CT PE protocol which demonstrated complete opacification of the bronchus intermedius and numerous right lower lobe segmental and subsegmental branches which could be mucous plugging from infectious or inflammatory process or possibly due to aspiration, and obstructing endobronchial mass is a differential consideration. Patient with end-stage dementia/Alzheimer's, is occasionally oriented x1, patient at high risk for aspiration. Suspect severe sepsis secondary to aspiration pneumonia. Will admit for further evaluation and management. Allergies Penicillins Allergy (Verified 11/05/17 11:55) Rash codeine Adverse Reaction (Verified 11/05/17 11:55) Nausea/Vomiting Home Medications: Amlodipine [Norvasc*] 5 mg PO DAILY 12/03/20 Donepezil [Aricept*] 10 mg PO DAILY 12/03/20 Ezetimibe 10 mg PO BEDTIME 12/03/20 Olmesartan Medoxomil 40 mg PO DAILY 12/03/20 Timolol [Betimol] 2 drops LEFT EYE DAILY 12/03/20 Trazodone [Desyrel*] 50 mg PO BEDTIME 12/03/20 Calcium Carbonate/Vitamin D3 [Oscal 500 + Vit D 200 Iu Tab*] 1 tab PO BID #60 tab 12/13/20 Multivit with Iron,Minerals [Complete Senior] 1 each PO DAILY #90 tablet 12/13/20 Thiamine HCl 100 mg PO DAILY #90 tablet 12/13/20 Levothyroxine [Synthroid*] 125 mcg PO DAILYAC 12/17/20 Glimepiride [Amaryl*] 2 mg PO BIDWM #60 tab 12/25/20 Levofloxacin [Levaquin] 500 mg PO DAILY #3 tablet 12/25/20 - Past Medical/Surgical History Diabetic: Yes -: Diabetes mellitus type 2 -: Hypertension -: Hyperlipidemia -: Glaucoma -: Cataracts -: hypothyroidism -: Alzheimer's dementia -: Cataract surgery -: laser eye surgery -: L breast lumpectomy -: thyroidectomy -: Left hip surgery Psychosocial/ Personal History: She is . Has 2 children. She no longer works. - Family History Brother -: Cancer - Social History Alcohol use: No CD- Drugs: No Caffeine use: Yes Place of Residence: [facility] Review of Systems is unable to be obtained Physical Examination - Physical Exam General: Confused Neck: Supple Respiratory: Diminished, Crackles/rales Cardiovascular: No edema Capillary refill: <2 Seconds Gastrointestinal: Normal bowel sounds, Soft and benign Musculoskeletal: No contractures, No erythema, No tenderness Integumentary: No tenderness/swelling, No erythema, No warmth Neurological: Normal strength at 5/5 x4 extr, Normal tone - Studies Laboratory Data (last 24 hrs) 12/28/20 17:59: WBC 9.00 D, Hgb 7.7 L, Hct 23.4 L, Plt Count 296 D 12/28/20 17:59: Sodium 144, Potassium 3.2 L, BUN 42 H D, Creatinine 1.57 H, Glucose 152 H, Magnesium 2.1, Total Bilirubin 0.2, AST 47 H, ALT 47, Alkaline Phosphatase 76, Lipase 73 Assessment and Plan - Plan Assessment Hypothermia, metabolic encephalopathy, severe sepsis secondary to right-sided aspiration pneumonia Acute kidney injury superimposed on CKD 2 Diabetes mellitus type 2 Advanced Alzheimer's/dementia Status post left femoral neck repair Anemia of chronic disease Hypothyroidism Plan Hypothermia, metabolic encephalopathy, severe sepsis secondary to right-sided aspiration pneumonia-: Patient given 30 cc per kg fluid bolus in the emergency department, blood pressure has improved nicely, repeat lactate pending. Patient given Levaquin/Flagyl as she is allergic to penicillin has suspect aspiration pneumonia in the emergency department. Patient on bear hugger warming blanket at this time temperature coming up slowly. Will keep NPO at this time, speech therapy consulted, pulmonology consulted. DVT prophylaxis Lovenox 40 mg subcutaneous once daily. Acute kidney injury superimposed on CKD 2: Patient's baseline GFR appears to be around 70, currently 31, patient had similar GFR upon admission previously which came up nicely with hydration, will continue IV fluids. Consult nephrology as necessary. Diabetes mellitus type 2: Patient was significantly hyperglycemic throughout the day with sugars up to 700, currently blood sugar 152, will check sugars q.6h, moderate sliding scale. Will re-initiate long-acting insulin once we can be sure she does not become hypoglycemic from [facility]. Patient is NPO at this time. Advanced Alzheimer's/dementia: Stable, discuss case at length with has , has been wishes for DNR. If patient were to need PEG tube due to risk for asp iration/worsening nutritional status he is not sure if this is something that he would like to have done. reports he will think this over. Status post left femoral neck repair: Stable, continue Lovenox. Fall precautions. Anemia of chronic disease: Transfuse to maintain hemoglobin greater than 7. Hypothyroidism: Continue home medications when appropriate. Discharge Plan: [facility] Plan to discharge in: Greater than 2 days - Advance Directives Does patient have a Living Will: No Does patient have a Durable POA for Healthcare: No - Code Status/Comfort Care Code Status Assessed: Yes (DNR) Critical Care: No Time Spent Managing Pts Care (In Minutes): 55
[2020-12-28 21:07] LABS: Protime INR 1.13
[2020-12-28] MEDS ORDERED: ONDANSETRON 4 MG/2 ML VIAL IV PRN (21:58)
[2020-12-28] MEDS: INSULIN -REGULAR HUMAN 50 UNIT/0.5 ML ML SQ SCH (21:58)
[2020-12-28] MEDS ORDERED: ACETAMINOPHEN 650MG/RECT SUPP PR PRN (21:58)
[2020-12-28] MEDS ORDERED: Levofloxacin500mg IV 500 MG/100 ML BAG IV SCH (21:58)
[2020-12-28] MEDS: D5 0.45 NS 1,000 ML IV SCH (22:19)
[2020-12-28] MEDS ORDERED: D5 0.45 NS 1,000 ML IV ONE (22:37)
[2020-12-28] MEDS ORDERED: Levofloxacin500mg IV 0 MG/0 ML BAG IV ONE (22:37)
[2020-12-29] MEDS: METRONIDAZOLE 500mg IVPB 500 MG/100 ML BAG IV SCH ×3 (00:25→17:11)
[2020-12-29] MEDS ORDERED: NA CHLORIDE 0.9% 250 ML ONE (00:42)
--- NOTE | 2020-12-29 01:57 | P.INFCA ---
Sepsis Focused Assessment - Focused Assessment Complete? Sepsis Focused Assessment Completed?: Yes - Sepsis Screen Result Severe Sepsis: Positive Septic Shock: Negative - Evaluation Current stage of sepsis: Severe sepsis - Vital Signs Reviewed: Yes Temperature: 99.2 F Heart rate: 75 Blood Pressure: 102/44 Respiratory Rate: 20 O2 Sat by Pulse Oximetry: 94 - Examination Date exam was performed: 12/28/20 Time exam was performed: 23:00 Heart: Regular rate/rhythm Lungs: Diminished air movement Peripheral pulses: 2+ Slightly diminished Peripheral pulse location: Radial Capillary refill: <2 Seconds Skin examination: Normal turgor
[2020-12-29 03:37] VITALS: BMI 19.5
[2020-12-29 05:23] LABS: Absolute Lymphocytes (CBC) 0.5 K/uL (0.7-4.9); Basophils % 0.4 % (0-1.3); Hematocrit 21.5 % (36.0-45.0); Lymphocytes % 4.4 % (15.3-44.8); MPV 9.6 fL (7.6-11.3); RBC Red Blood Cell Count 2.27 M/uL (3.86-4.86)
[2020-12-29 05:56] LABS: Albumin 2.4 g/dL (3.4-5.0); Bilirubin Total 0.3 mg/dL (0.2-1.0); Magnesium 1.7 mg/dL (1.8-2.4); Protein, Total 5.4 g/dL (6.4-8.2)
[2020-12-29 06:00] LABS: Potassium 2.9 mmol/L (3.5-5.1)
[2020-12-29] MEDS: KCL 20 MEQ/100 mL IVPB 20 MEQ/100 ML BAG IV SCH ×5 (06:05→20:53)
--- NOTE | 2020-12-29 06:12 | P.PN ---
Subjective Date of Service: 12/29/20 Primary Care Provider: Dr. kearney Chief Complaint: Severe sepsis, aspiration pneumonia Subjective: Other (Patient resting in bed. Increased sedation. Hemoglobin was 7.1. Transfusion is planned. VSS stable.) Physical Examination - Vital Signs Temperature: 100 F Blood Pressure: 118/54 Pulse: 89 Respirations: 26 Pulse Ox (%): 93 - Studies Laboratory Data (last 24 hrs) 12/28/20 17:59: WBC 9.00 D, Hgb 7.7 L, Hct 23.4 L, Plt Count 296 D 12/28/20 17:59: Sodium 144, Potassium 3.2 L, BUN 42 H D, Creatinine 1.57 H, Glucose 152 H, Magnesium 2.1, Total Bilirubin 0.2, AST 47 H, ALT 47, Alkaline Phosphatase 76, Lipase 73 Assessment & Plan Discharge Plan: Other (Skilled facility verses long-term care) Plan to discharge in: Greater than 2 days Physician Review Additional Text: CT Chest: COMPARISON: Chest Single View dated 12/28/2020 TECHNIQUE: Dynamically enhanced 3 mm thick images of the chest were obtained during administration of approximately 150mL Isovue 370 IV contrast. Coronal and oblique MIP reconstruction images were generated and reviewed. Exam utilizes a protocol to evaluate the pulmonary arterial tree. All CT scans are performed using dose optimization technique as appropriate and may include automated exposure control or mA/KV adjustment according to patient size. FINDINGS: No pulmonary emboli are identified. The aorta as imaged shows no acute or suspicious finding. No pericardial thickening or effusion. Patchy parenchymal opacification in stranding changes are present in the right middle lobe and inferior aspect of the lingula left upper lobe. There is no lower lobe mass or consolidation. Interstitial markings are prominent. There is complete opacification of the bronchus intermedius and multiple segmental and subsegmental bronchi of the right lower lobe. This could be mucous plugging. Aspiration is possible. An obstructive endobronchial mass is possible. No other bronchial obstructive process seen. No pleural effusion or pleural thickening. No mediastinal or hilar suspicious masses. No chest wall masses or abnormal axillary lymphadenopathy. IMPRESSION: No pulmonary emboli identified. Patchy opacification in the right middle lobe and lingula of the left upper lobe favored to be scarring or atelectasis. Minimal infiltrate is possible. Complete opacification of the bronchus intermedius and numerous right lower lobe segmental and subsegmental branches. This could be mucous plugging from an infectious/inflammatory process or possibly due to aspiration. An obstructing endobronchial mass is a differential consideration. CT Head: FINDINGS: No intracranial hemorrhage, mass, edema or shift of mid-line structures. No acute cortical based infarction, cortical edema or sulcal effacement. No abnormal extra-axial fluid collections. Moderate severity atrophy and chronic ischemic changes are present. Ventriculomegaly is in proportion to the amount of volume loss. Dense arterial tree calcifications are present. Mastoid air cells and visualized portions of the paranasal sinuses are clear. No acute bony findings. IMPRESSION: Negative non-contrast CT head examination for acute findings. Moderate severity atrophy and chronic ischemic change matching the December 17 comparison. Physical Exam: Patient resting in bed. Patient with severe dementia. Heart: Regular rate rhythm Lungs: Clear anteriorly Abdomen: Soft, nontender, nondistended Extremities: Good range of motion. Mentation: Patient alert to stimuli. Still with increase sedation. Assessment Hypothermia, metabolic encephalopathy, severe sepsis secondary to right-sided aspiration pneumonia Acute kidney injury superimposed on CKD 2 Diabetes mellitus type 2 Advanced Alzheimer's/dementia Status post left femoral neck repair Anemia of chronic disease Hypothyroidism Plan Hypothermia, metabolic encephalopathy, severe sepsis secondary to right-sided aspiration pneumonia: Patient received IV fluid bolus. Continue with IV fluids. Patient remains on IV antibiotic therapy to cover for aspiration. Case discussed with pulmonology. Continue with antibiotics. Blood and urine cultures obtained. Continue with IV fluids. Will adjust accordingly depending blood sugars. Will change IV fluids to normal saline if blood sugar greater than 200. Will change IV fluids to D5 normal if blood sugar less than 200. Patient with fluctuating blood sugars. Will monitor closely. Parameters in place. DVT prophylaxis-Lovenox in place. Patient remains NPO until she is more alert and swallow evaluation can be done by nurses. Spoke with at length. Patient has been in and out of the hospital for multiple issues related to uncontrolled DM. Will need to discuss with SNF to determine further. BS was controlled with Amayl at last discharge. Family has tried to send the patient to another SNF of their preference but it was too costly. Will need to discuss with social work to see what options she has for the patient. Ideally, patient needs to be in a memory unit due to her dementia. I will turn the service over to Dr. Munoz tomorrow. I will go over the case with him. Acute kidney injury superimposed on CKD 2: Continue IV fluids. Electrolyte protocol in place. Will monitor closely. Diabetes mellitus type 2: BS has been fluctuating. When she last left the hospital, her BS was around 150-250 on Amaryl. She required Insulin at the SNF. Need to obtain more information from skilled facility on her fluctuating blood sugars. For now will continue with sliding scale and Accu-Cheks. Will adjust IV fluids accordingly. Consider restarting Amaryl once able to take good oral intake. Advanced Alzheimer's/dementia: Patient remains DNR.. Status post left femoral neck repair: Stable, continue Lovenox. Fall precautions. Anemia of chronic disease: Hemoglobin was 7.1 this morning. Will transfuse 1 unit. Maintain hemoglobin above 7.5. Will continue to monitor closely.. Hypothyroidism: Will review and restart home medication. DVT prophylaxis Lovenox Code status: Do not resuscitate Advanced care planning-30 min: Discussed at length with about plan of care. Patient has been back to [facility] skilled facility with little improvement in has return to the hospital. They had desired another skilled facility prior to this admission. That they were not able to get to that facility because of the cost. Patient likely requires long-term care in the future. Will need to discuss with social media marketer about options at discharge. Family to go over options. Time Spent Managing Pts Care (In Minutes): 55
[2020-12-29] MEDS ORDERED: KCL 20 MEQ/100 mL IVPB 20 MEQ/100 ML BAG IV ONE ×5 (06:24→19:53)
[2020-12-29] MEDS: D5 0.45 NS 1,000 ML IV SCH ×2 (06:58→17:23)
[2020-12-29] MEDS ORDERED: MAGNESIUM SULFATE 1 gm IVPB 1 GM/100 ML BAG IV ONE ×2 (07:10→08:00)
[2020-12-29] MEDS: INSULIN -REGULAR HUMAN 50 UNIT/0.5 ML ML SQ SCH ×4 (07:30→20:52)
[2020-12-29] MEDS ORDERED: NA CHLORIDE 0.9% 100 ML ONE (07:38)
[2020-12-29] MEDS ORDERED: ENOXAPARIN 30 MG/0.3 ML SQ ONE (07:38)
[2020-12-29] MEDS ORDERED: METRONIDAZOLE 500mg IVPB 500 MG/100 ML BAG IV ONE ×3 (07:39→19:53)
[2020-12-29] MEDS: ENOXAPARIN 30 MG/0.3 ML SQ SCH (08:02)
[2020-12-29] MEDS ORDERED: ENOXAPARIN 40 MG/0.4 ML SQ SCH (09:00)
[2020-12-29 09:04] LABS: Urine Appearance CLEAR (Clear); Urine Bilirubin NEGATIVE (Negative); Urine Blood NEGATIVE (Negative); Urine Color YELLOW (Yellow); Urine Glucose 3+ (Negative); Urine Protein NEGATIVE (Negative); Urine Specific Gravity >=1.030 (1.005-1.030); Urine Urobilinogen 0.2 mg/dL (0.2-1.0); Urine pH 5.5 (5.0-7.0)
[2020-12-29 09:05] LABS: Urine Microscopic Reflex NO UMIC
[2020-12-29] MEDS: NACHLORIDE 0.45% 1,000 ML IV SCH ×2 (09:48→20:08)
[2020-12-29] MEDS ORDERED: NACHLORIDE 0.45% 1,000 ML IV ONE ×2 (10:04→19:53)
[2020-12-29] MEDS ORDERED: FUROSEMIDE 20 MG/ 2ML VIAL IV ONE (11:00)
[2020-12-29] MEDS ORDERED: INSULIN -REGULAR HUMAN 50 UNIT/0.5 ML ML ONE (12:13)
[2020-12-29 12:39] LABS: Hematocrit 30.9 % (36.0-45.0)
[2020-12-29 15:26] LABS: Magnesium 1.8 mg/dL (1.8-2.4); Potassium 3.2 mmol/L (3.5-5.1)
[2020-12-29] MEDS ORDERED: D5 0.45 NS 1,000 ML IV ONE (17:43)
[2020-12-30] MEDS: METRONIDAZOLE 500mg IVPB 500 MG/100 ML BAG IV SCH ×3 (00:44→16:30)
[2020-12-30] MEDS: D5 0.45 NS 1,000 ML IV SCH (03:58)
[2020-12-30] MEDS ORDERED: D5 0.45 NS 1,000 ML IV ONE (04:02)
[2020-12-30 05:17] LABS: Absolute Lymphocytes (CBC) 0.4 K/uL (0.7-4.9); Basophils % 0.2 % (0-1.3); Hematocrit 27.3 % (36.0-45.0); Lymphocytes % 4.8 % (15.3-44.8); MPV 9.1 fL (7.6-11.3); RBC Red Blood Cell Count 2.93 M/uL (3.86-4.86)
[2020-12-30 05:40] LABS: Albumin 2.5 g/dL (3.4-5.0); Bilirubin Total 0.5 mg/dL (0.2-1.0); Magnesium 1.9 mg/dL (1.8-2.4); Potassium 3.6 mmol/L (3.5-5.1); Protein, Total 6.1 g/dL (6.4-8.2)
[2020-12-30] MEDS ORDERED: KCL 20 MEQ/100 mL IVPB 20 MEQ/100 ML BAG IV SCH (06:00)
[2020-12-30] MEDS ORDERED: KCL 20 MEQ/100 mL IVPB 20 MEQ/100 ML BAG IV ONE (06:30)
[2020-12-30] MEDS: INSULIN -REGULAR HUMAN 50 UNIT/0.5 ML ML SQ SCH ×4 (08:13→20:47)
[2020-12-30] MEDS: THIAMINE 200 MG/2 ML INJ IVP SCH (08:14)
[2020-12-30] MEDS: ENOXAPARIN 30 MG/0.3 ML SQ SCH (08:14)
[2020-12-30] MEDS ORDERED: THIAMINE 200 MG/2 ML INJ ONE (08:31)
[2020-12-30] MEDS ORDERED: ENOXAPARIN 30 MG/0.3 ML SQ ONE (08:32)
[2020-12-30] MEDS ORDERED: METRONIDAZOLE 500mg IVPB 500 MG/100 ML BAG IV ONE ×2 (08:32→16:49)
[2020-12-30] MEDS ORDERED: INSULIN -REGULAR HUMAN 50 UNIT/0.5 ML ML ONE ×2 (08:32→21:03)
[2020-12-30] MEDS: FOLIC ACID 1 MG in NA CHLORIDE 0.9% 50 ML IV SCH (08:44)
--- NOTE | 2020-12-30 08:52 | RAD REPORT ---
EXAM DESCRIPTION: RAD - Chest Single View - 12/30/2020 5:28 am CLINICAL HISTORY: Follow-up aspiration Chest pain. COMPARISON: Chest Single View dated 12/28/2020; Chest Single View dated 12/17/2020; Chest Single View d ated 12/03/2020; Chest Single View dated 02/17/2016 FINDINGS: Portable technique limits examination quality. Airspace opacity has progressed in the medial right lung base probably representing aspiration/pneumo natalya. The heart is normal in size. No displaced fractures. IMPRESSION: Moderate progression of right medial lung base opacity/ infiltrate likely related to asp iration.
[2020-12-30] MEDS ORDERED: CALCIUM GLUC 10% INJ 9.3 MEQ in NA CHLORIDE 0.9% 100 ML IV ONE (10:59)
--- NOTE | 2020-12-30 12:32 | P.PN ---
Subjective Date of Service: 12/30/20 Seen by speech therapy. Recommended pureed diet. Patient's clinical prognosis is poor. Spoke with family about long-term prognosis. Will talk to daughter in the morning. Review of Systems is unable to be obtained (Patient is demented) Physical Examination - Vital Signs Temperature: 98.2 F Blood Pressure: 125/61 Pulse: 76 Respirations: 17 Pulse Ox (%): 99 - Physical Exam General: Alert, Demented Neck: JVD not distended Respiratory: Clear to auscultation bilaterally, Normal air movement Cardiovascular: Regular rate/rhythm, Normal S1 S2, No murmurs Gastrointestinal: Normal bowel sounds, Soft and benign, Non-distended, No tenderness Musculoskeletal: No clubbing, No swelling, No tenderness Neurological: Sensation intact, Cranial nerves 3-12 intact - Studies Microbiology Data (last 24 hrs): 12/28/20 19:44 Blood - Blood Anaerobic Blood Culture - Final Medications List Reviewed: Yes Assessment & Plan - Problems (Diagnosis) (1) Status post fracture of left hip Current Visit: Yes Status: Acute (2) Altered mental status Onset Date: 02/18/16 Current Visit: No Status: Acute Qualifiers: Altered mental status type: unspecified Qualified Code(s): R41.82 - Altered mental status, unspecified (3) Alzheimer's type dementia Current Visit: No Status: Acute (4) Diabetes mellitus Onset Date: 02/18/16 Current Visit: No Status: Chronic (5) Hyperlipidemia Onset Date: 02/18/16 Current Visit: No Status: Chronic Qualifiers: (6) Hypertension Onset Date: 02/18/16 Current Visit: No Status: Chronic Qualifiers: (7) Aspiration pneumonia Current Visit: Yes Status: Acute (8) Malnourished Current Visit: Yes Status: Acute Qualifiers: Malnutrition type: protein-calorie malnutrition - Plan Continue with plan of care as mentioned below 1. Continue with IV antibiotics 2. Awaiting culture results 3. Repeat chest x-ray 4. Pureed diet with honey thick liquids 5. Strict blood pressure and blood sugar control 6. Continue with nebs as needed 7. O2 per protocol 8. Continue with gentle hydration 9. Repeat labs including CBC and renal function in a.m. 10. GI and DVT prophylaxis Spoke with family regarding prognosis. Plan to discharge in: Greater than 2 days - Advance Directives Does patient have a Living Will: No Does patient have a Durable POA for Healthcare: No - Code Status/Comfort Care Code Status Assessed: Yes Code Status: Full Code Critical Care: No Time Spent Managing PTS Care (In Minutes): 35
--- NOTE | 2020-12-30 13:54 | RAD REPORT ---
EXAM DESCRIPTION: RAD - Barium Swallow Modified - 12/30/2020 1:49 pm CLINICAL HISTORY: dysphagia COMPARISON: None. TECHNIQUE: The patient was given liquid, semi-solid and solid forms of barium. Lateral view fluorosc opic imaging was performed in conjunction with speech pathology service. FINDINGS: Cineloop acquisitions: 28 Fluoro time: 8 minutes 1 second Laryngeal penetration: Cleared with thin liquid Aspiration: No cough with nectar residue. Vallecular residue was moderate with nectar and mild with pudding. Mild to moderate esophageal stasis with retropulsion. IMPRESSION: Modified barium swallow as summarized above and fully detailed on speech pathology repor malia
[2020-12-30] MEDS: NACHLORIDE 0.45% 1,000 ML IV SCH ×2 (16:00→20:17)
--- NOTE | 2020-12-30 17:06 | P.CNS ---
Date of Consult: 12/30/20 Reason for Consult: Possible aspiration pneumonia Primary Care Provider: Dr. kearney Chief Complaint: Severe sepsis, aspiration pneumonia History of Present Illness: Patient is 84 years of age multiple medical problem including end-stage dementia presented with altered mental status very high blood sugars profound hypotension he was successfully resuscitated currently patient is hemodynamically stable unresponsive Allergies Penicillins Allergy (Verified 11/05/17 11:55) Rash codeine Adverse Reaction (Verified 11/05/17 11:55) Nausea/Vomiting Home Medications: Amlodipine [Norvasc*] 5 mg PO DAILY 12/03/20 Donepezil [Aricept*] 10 mg PO DAILY 12/03/20 Ezetimibe 10 mg PO BEDTIME 12/03/20 Olmesartan Medoxomil 40 mg PO DAILY 12/03/20 Timolol [Betimol] 2 drops LEFT EYE DAILY 12/03/20 Trazodone [Desyrel*] 50 mg PO BEDTIME 12/03/20 Calcium Carbonate/Vitamin D3 [Oscal 500 + Vit D 200 Iu Tab*] 1 tab PO BID #60 tab 12/13/20 Multivit with Iron,Minerals [Complete Senior] 1 each PO DAILY #90 tablet 12/13/20 Thiamine HCl 100 mg PO DAILY #90 tablet 12/13/20 Levothyroxine [Synthroid*] 125 mcg PO DAILYAC 12/17/20 Glimepiride [Amaryl*] 2 mg PO BIDWM #60 tab 12/25/20 Levofloxacin [Levaquin] 500 mg PO DAILY #3 tablet 12/25/20 - Past Medical/Surgical History Diabetic: Yes -: Diabetes mellitus type 2 -: Hypertension -: Hyperlipidemia -: Glaucoma -: Cataracts -: hypothyroidism -: Alzheimer's dementia -: Cataract surgery -: laser eye surgery -: L breast lumpectomy -: thyroidectomy -: Left hip surgery Psychosocial/ Personal History: She is . Has 2 children. She no longer works. - Family History Brother Medical History: Cancer - Social History Smoking Status: Unknown if ever smoked Alcohol use: No CD- Drugs: No Caffeine use: Yes [facility] Review of Systems is unable to be obtained Physical Examination Temp Pulse Resp BP Pulse Ox 97.6 F 79 19 133/77 97 12/30/20 16:00 12/30/20 16:00 12/30/20 16:00 12/30/20 16:00 12/30/20 16:00 General: Unresponsive Respiratory: Clear to auscultation bilaterally Cardiovascular: No edema, Regular rate/rhythm, Normal S1 S2 Gastrointestinal: Normal bowel sounds, Soft and benign Musculoskeletal: No clubbing, No swelling - Problems (1) Hypovolemic shock Current Visit: Yes Status: Acute Plan: Patient is 85 years of age admitted with I suspect hypovolemic shock there is no evidence of sepsis severely hyperglycemic end-stage dementia patient is mildly anemic no source of for any obvious bleeding modified barium swallow done today patient does not eat or drink CT scan no evidence of aspiration Dc antibiotic he had insulin procalcitonin level was also normal currently patient is stable hemodynamically stable oxygenation satisfactory Dc antibiotic continue with IV fluids is a speech pathologist report is pending at low-dose insulin tsh is pending cultures negative prognosis poor
[2020-12-30] MEDS ORDERED: D50W 25 GM/50 ML SYRINGE IV PRN (17:07)
[2020-12-30] MEDS ORDERED: GLUCAGON 1 MG/VIAL IM PRN (17:07)
[2020-12-30] MEDS ORDERED: LEVOFLOXACIN 750MG/D5W 150 ML IV SCH (20:00)
[2020-12-30] MEDS ORDERED: NACHLORIDE 0.45% 1,000 ML IV ONE (20:33)
[2020-12-30] MEDS: INSULIN GLARGINE 100 UNITS/ML SQ SCH (20:47)
[2020-12-30] MEDS ORDERED: INSULIN GLARGINE 100 UNITS/ML SQ ONE (21:02)
[2020-12-31 05:05] LABS: Absolute Lymphocytes (CBC) 0.6 K/uL (0.7-4.9); Basophils % 0.5 % (0-1.3); Hematocrit 27.2 % (36.0-45.0); Lymphocytes % 6.4 % (15.3-44.8); MPV 9.1 fL (7.6-11.3); RBC Red Blood Cell Count 2.94 M/uL (3.86-4.86)
[2020-12-31] MEDS: NACHLORIDE 0.45% 1,000 ML IV SCH ×2 (05:05→15:36)
[2020-12-31 05:13] LABS: ALT/SGPT 33 U/L (12-78); AST/SGOT 29 U/L (15-37); Albumin 2.3 g/dL (3.4-5.0); Alkaline Phosphatase 86 U/L (45-117); BUN Blood Urea Nitrogen 13 mg/dL (7-18); Bicarbonate 23 mmol/L (21-32); Bilirubin Total 0.4 mg/dL (0.2-1.0); Glucose Level 182 mg/dL (74-106); Magnesium 1.7 mg/dL (1.8-2.4); Sodium Level 137 mmol/L (136-145)
[2020-12-31] MEDS ORDERED: NACHLORIDE 0.45% 1,000 ML IV ONE ×2 (05:21→15:55)
[2020-12-31 05:26] LABS: Potassium 2.9 mmol/L (3.5-5.1)
[2020-12-31] MEDS: KCL 20 MEQ/100 mL IVPB 20 MEQ/100 ML BAG IV SCH ×5 (05:35→22:30)
[2020-12-31] MEDS ORDERED: KCL 20 MEQ/100 mL IVPB 20 MEQ/100 ML BAG IV ONE ×3 (05:53→09:28)
[2020-12-31] MEDS ORDERED: MAGNESIUM SULFATE 1 gm IVPB 1 GM/100 ML BAG IV ONE ×2 (06:00→06:03)
[2020-12-31] MEDS: INSULIN -REGULAR HUMAN 50 UNIT/0.5 ML ML SQ SCH ×4 (07:00→21:37)
[2020-12-31] MEDS ORDERED: ENOXAPARIN 30 MG/0.3 ML SQ ONE (07:37)
[2020-12-31] MEDS ORDERED: THIAMINE 200 MG/2 ML INJ ONE (07:37)
[2020-12-31] MEDS: ENOXAPARIN 30 MG/0.3 ML SQ SCH (08:01)
[2020-12-31] MEDS: FOLIC ACID 1 MG in NA CHLORIDE 0.9% 50 ML IV SCH (08:01)
[2020-12-31] MEDS: THIAMINE 200 MG/2 ML INJ IVP SCH (08:02)
--- NOTE | 2020-12-31 13:18 | P.PN ---
Date of Service: 12/31/20 Subjective Seen by speech therapy. Recommended pureed diet. Patient's clinical prognosis is poor. Spoke with family about long-term prognosis. Will talk to daughter in the morning. Review of Systems is unable to be obtained (Patient is demented) Physical Examination - Vital Signs Reviewed - Physical Exam General: Alert, Demented Respiratory: Rhonchi in the right lower lobe Cardiovascular: Regular rate/rhythm, Normal S1 S2, No murmurs Gastrointestinal: Normal bowel sounds, Soft and benign, Non-distended, No tenderness Musculoskeletal: No clubbing, No swelling, No tenderness Neurological: Sensation intact, Cranial nerves 3-12 intact Assessment & Plan - Problems (Diagnosis) (1) Status post fracture of left hip Current Visit: Yes Status: Acute (2) Altered mental status Onset Date: 02/18/16 Current Visit: No Status: Acute Qualifiers: Altered mental status type: unspecified Qualified Code(s): R41.82 - Altered mental status, unspecified (3) Alzheimer's type dementia Current Visit: No Status: Acute (4) Diabetes mellitus Onset Date: 02/18/16 Current Visit: No Status: Chronic (5) Hyperlipidemia Onset Date: 02/18/16 Current Visit: No Status: Chronic Qualifiers: (6) Hypertension Onset Date: 02/18/16 Current Visit: No Status: Chronic Qualifiers: (7) Aspiration pneumonia Current Visit: Yes Status: Acute (8) Malnourished Current Visit: Yes Status: Acute Qualifiers: Malnutrition type: protein-calorie malnutrition - Plan Continue with plan of care as mentioned below 1. Continue with IV antibiotics 2. Awaiting culture results 3. Repeat chest x-ray 4. Pureed diet with honey thick liquids 5. Strict blood pressure and blood sugar control 6. Continue with nebs as needed 7. O2 per protocol 8. Continue with gentle hydration 9. Repeat labs including CBC and renal function in a.m. 10. GI and DVT prophylaxis Spoke with family regarding prognosis. Daughter will speak to the additional family members regarding hospice care.
[2020-12-31] MEDS: ENSURE PUDDING 4 OZ CUP PO SCH (20:12)
[2020-12-31] MEDS ORDERED: KCL 20 MEQ/100 mL IVPB 40 MEQ/200 ML BAG IV ONE (20:29)
[2020-12-31] MEDS ORDERED: INSULIN GLARGINE 100 UNITS/ML SQ ONE (20:55)
[2020-12-31] MEDS ORDERED: INSULIN -REGULAR HUMAN 50 UNIT/0.5 ML ML ONE (20:55)
[2020-12-31] MEDS: INSULIN GLARGINE 100 UNITS/ML SQ SCH (21:36)
[2021-01-01] MEDS: NACHLORIDE 0.45% 1,000 ML IV SCH ×5 (01:00→23:23)
[2021-01-01 04:14] LABS: Absolute Lymphocytes (CBC) 0.5 K/uL (0.7-4.9); Basophils % 0.2 % (0-1.3); Hematocrit 27.6 % (36.0-45.0); Lymphocytes % 5.3 % (15.3-44.8); MPV 9.5 fL (7.6-11.3); RBC Red Blood Cell Count 2.97 M/uL (3.86-4.86)
[2021-01-01 04:41] LABS: ALT/SGPT 28 U/L (12-78); AST/SGOT 24 U/L (15-37); Albumin 2.2 g/dL (3.4-5.0); Alkaline Phosphatase 95 U/L (45-117); BUN Blood Urea Nitrogen 8 mg/dL (7-18); Bicarbonate 21 mmol/L (21-32); Bilirubin Total 0.4 mg/dL (0.2-1.0); Glucose Level 244 mg/dL (74-106); Magnesium 1.6 mg/dL (1.8-2.4); Potassium 3.5 mmol/L (3.5-5.1); Protein, Total 5.7 g/dL (6.4-8.2); Sodium Level 133 mmol/L (136-145)
[2021-01-01 04:48] LABS: Blood Morphology Comment NOT SEEN (NOT SEEN); Platelet Estimate ADEQ
[2021-01-01] MEDS ORDERED: CALCIUM GLUC 10% INJ 4.65 MEQ in NA CHLORIDE 0.9% 100 ML IV ONE (04:57)
[2021-01-01] MEDS ORDERED: CALCIUM GLUCONATE 1 GM IVPB 1 GM/50 ML BAG IV ONE (05:36)
[2021-01-01] MEDS ORDERED: MAGNESIUM SULFATE 1 gm IVPB 1 GM/100 ML BAG IV ONE (06:00)
[2021-01-01] MEDS: INSULIN -REGULAR HUMAN 50 UNIT/0.5 ML ML SQ SCH ×4 (07:30→21:30)
[2021-01-01] MEDS ORDERED: POTASSIUM CL SA 10 MEQ TAB PO ONE (08:00)
[2021-01-01] MEDS: ENSURE PUDDING 4 OZ CUP PO SCH ×3 (09:00→21:30)
[2021-01-01] MEDS: THIAMINE 200 MG/2 ML INJ IVP SCH (09:00)
[2021-01-01] MEDS: ENOXAPARIN 30 MG/0.3 ML SQ SCH (09:03)
[2021-01-01] MEDS: FOLIC ACID 1 MG in NA CHLORIDE 0.9% 50 ML IV SCH (09:04)
[2021-01-01] MEDS ORDERED: HYDROCORTISONE SUC 100 MG INJ IV ONE (10:27)
--- NOTE | 2021-01-01 10:29 | P.PN ---
Date of Service: 12/31/20 Subjective Family has decided against feeding tube. They are hoping patient can improve to were she can tolerate comfort foods. If she does improved and we will continue with proceeding with discharge back to a residential facility. If she does not improve then they have contemplated hospice care and are considering this as well. Review of Systems is unable to be obtained (Patient is demented) Physical Examination - Vital Signs Reviewed - Physical Exam General: Alert, Demented Respiratory: Rhonchi in the right lower lobe Cardiovascular: Regular rate/rhythm, Normal S1 S2, No murmurs Gastrointestinal: Normal bowel sounds, Soft and benign, Non-distended, No tenderness Musculoskeletal: No clubbing, No swelling, No tenderness Neurological: Sensation intact, Cranial nerves 3-12 intact Assessment & Plan - Problems (Diagnosis) (1) Status post fracture of left hip Current Visit: Yes Status: Acute (2) Altered mental status Onset Date: 02/18/16 Current Visit: No Status: Acute Qualifiers: Altered mental status type: unspecified Qualified Code(s): R41.82 - Altered mental status, unspecified (3) Alzheimer's type dementia Current Visit: No Status: Acute (4) Diabetes mellitus Onset Date: 02/18/16 Current Visit: No Status: Chronic (5) Hyperlipidemia Onset Date: 02/18/16 Current Visit: No Status: Chronic Qualifiers: (6) Hypertension Onset Date: 02/18/16 Current Visit: No Status: Chronic Qualifiers: (7) Aspiration pneumonia Current Visit: Yes Status: Acute (8) Malnourished Current Visit: Yes Status: Acute Qualifiers: Malnutrition type: protein-calorie malnutrition - Plan Continue with plan of care as mentioned below 1. Continue with IV antibiotics 2. Awaiting culture results 3. Repeat chest x-ray if symptoms are worsening 4. Pureed diet with honey thick liquids; monitor it calorie count; will also give appetite stimulant with possible dosing of steroids 5. Strict blood pressure and blood sugar control 6. Continue with nebs as needed 7. O2 per protocol 8. Continue with gentle hydration 9. Repeat labs including CBC and renal function in a.m. 10. GI and DVT prophylaxis Spoke with family regarding prognosis. Daughter will speak to the additional family members regarding hospice care.
[2021-01-01] MEDS: INSULIN GLARGINE 100 UNITS/ML SQ SCH (21:30)
[2021-01-02 06:28] LABS: BUN Blood Urea Nitrogen 6 mg/dL (7-18); Bicarbonate 26 mmol/L (21-32); Glucose Level 104 mg/dL (74-106); Magnesium 1.9 mg/dL (1.8-2.4); Sodium Level 141 mmol/L (136-145)
[2021-01-02 06:32] LABS: Potassium 2.9 mmol/L (3.5-5.1)
[2021-01-02] MEDS: INSULIN -REGULAR HUMAN 50 UNIT/0.5 ML ML SQ SCH ×4 (07:30→20:06)
[2021-01-02] MEDS: ENSURE PUDDING 4 OZ CUP PO SCH ×3 (09:00→20:06)
[2021-01-02] MEDS: NACHLORIDE 0.45% 1,000 ML IV SCH ×2 (09:31→19:01)
[2021-01-02] MEDS: KCL 20 MEQ/100 mL IVPB 20 MEQ/100 ML BAG IV SCH ×3 (09:32→13:59)
[2021-01-02] MEDS: FOLIC ACID 1 MG in NA CHLORIDE 0.9% 50 ML IV SCH (09:32)
[2021-01-02] MEDS: ENOXAPARIN 40 MG/0.4 ML SQ SCH (09:33)
[2021-01-02] MEDS: THIAMINE 200 MG/2 ML INJ IVP SCH (09:36)
[2021-01-02] MEDS ORDERED: HYDROCORTISONE SUC 100 MG INJ IV ONE (11:00)
[2021-01-02] MEDS ORDERED: KCL 20 MEQ/100 mL IVPB 20 MEQ/100 ML BAG IV SCH (19:00)
[2021-01-02] MEDS: HYDRALAZINE HCL 20 MG/ML VIAL IV PRN (19:00)
[2021-01-02] MEDS: INSULIN GLARGINE 100 UNITS/ML SQ SCH (20:01)
--- NOTE | 2021-01-03 01:41 | P.PN ---
Date of Service: 01/01/21 Subjective Patient is more awake and alert today. Her diet is improved. Will have physical therapy start working with the patient. If she does well with this she should be stable for discharge. Review of Systems is unable to be obtained (Patient is demented) Physical Examination - Vital Signs Reviewed - Physical Exam General: Alert, Demented Respiratory: Rhonchi in the right lower lobe Cardiovascular: Regular rate/rhythm, Normal S1 S2, No murmurs Gastrointestinal: Normal bowel sounds, Soft and benign, Non-distended, No tenderness Musculoskeletal: No clubbing, No swelling, No tenderness Neurological: Sensation intact, Cranial nerves 3-12 intact Assessment & Plan - Problems (Diagnosis) (1) Status post fracture of left hip Current Visit: Yes Status: Acute (2) Altered mental status Onset Date: 02/18/16 Current Visit: No Status: Acute Qualifiers: Altered mental status type: unspecified Qualified Code(s): R41.82 - Altered mental status, unspecified (3) Alzheimer's type dementia Current Visit: No Status: Acute (4) Diabetes mellitus Onset Date: 02/18/16 Current Visit: No Status: Chronic (5) Hyperlipidemia Onset Date: 02/18/16 Current Visit: No Status: Chronic Qualifiers: (6) Hypertension Onset Date: 02/18/16 Current Visit: No Status: Chronic Qualifiers: (7) Aspiration pneumonia Current Visit: Yes Status: Acute (8) Malnourished Current Visit: Yes Status: Acute Qualifiers: Malnutrition type: protein-calorie malnutrition - Plan Continue with plan of care as mentioned below 1. Continue with IV antibiotics 2. Awaiting culture results 3. Repeat chest x-ray 4. Pureed diet with honey thick liquids; monitor it calorie count; will also give appetite stimulant with possible dosing of steroids 5. Strict blood pressure and blood sugar control 6. Continue with nebs as needed 7. O2 per protocol 8. Continue with gentle hydration 9. Repeat labs 10. GI and DVT prophylaxis Spoke with family regarding prognosis. Daughter will speak to the additional family members regarding hospice care.
--- NOTE | 2021-01-03 01:43 | P.PN ---
Date of Service: 01/02/21 Subjective Patient continues to do well with no new complaints. Clinical symptoms are improving. Physical therapy evaluation. If patient does well over course of the next few days then patient will go back to [place]. If patient does not do well then we may consider hospice care Review of Systems is unable to be obtained (Patient is demented) Physical Examination - Vital Signs Reviewed - Physical Exam General: Alert, Demented Respiratory: Rhonchi in the right lower lobe Cardiovascular: Regular rate/rhythm, Normal S1 S2, No murmurs Gastrointestinal: Normal bowel sounds, Soft and benign, Non-distended, No tenderness Musculoskeletal: No clubbing, No swelling, No tenderness Neurological: Sensation intact, Cranial nerves 3-12 intact Assessment & Plan - Problems (Diagnosis) (1) Status post fracture of left hip Current Visit: Yes Status: Acute (2) Altered mental status Onset Date: 02/18/16 Current Visit: No Status: Acute Qualifiers: Altered mental status type: unspecified Qualified Code(s): R41.82 - Altered mental status, unspecified (3) Alzheimer's type dementia Current Visit: No Status: Acute (4) Diabetes mellitus Onset Date: 02/18/16 Current Visit: No Status: Chronic (5) Hyperlipidemia Onset Date: 02/18/16 Current Visit: No Status: Chronic Qualifiers: (6) Hypertension Onset Date: 02/18/16 Current Visit: No Status: Chronic Qualifiers: (7) Aspiration pneumonia Current Visit: Yes Status: Acute (8) Malnourished Current Visit: Yes Status: Acute Qualifiers: Malnutrition type: protein-calorie malnutrition - Plan Continue with plan of care as mentioned below 1. Change to oral antibiotics 2. Hep-Lock IV 3. Repeat chest x-ray 4. Pureed diet with honey thick liquids; monitor caloric intake 5. Strict blood pressure and blood sugar control 6. Continue with nebs as needed 7. O2 per protocol 8. Physical therapy evaluation 9. Monitor labs closely 10. GI and DVT prophylaxis Spoke with family regarding prognosis. If patient does well on diet without IV fluids then we will arrange for discharge to [place]. However, if patient does not do well with diet then patient will require hospice care
[2021-01-03 05:12] LABS: BUN Blood Urea Nitrogen 4 mg/dL (7-18); Bicarbonate 25 mmol/L (21-32); Glucose Level 149 mg/dL (74-106); Sodium Level 140 mmol/L (136-145)
[2021-01-03 05:29] LABS: Potassium 2.9 mmol/L (3.5-5.1)
[2021-01-03] MEDS: KCL 20 MEQ/100 mL IVPB 20 MEQ/100 ML BAG IV SCH ×3 (05:48→09:19)
[2021-01-03] MEDS: LEVOTHYROXINE SOD 0.125 MG TAB PO SCH (05:49)
[2021-01-03] MEDS: INSULIN -REGULAR HUMAN 50 UNIT/0.5 ML ML SQ SCH ×4 (07:30→20:57)
[2021-01-03] MEDS ORDERED: THIAMINE HCL 100 MG TABLET PO SCH (09:00)
[2021-01-03] MEDS: ENSURE PUDDING 4 OZ CUP PO SCH ×3 (09:00→19:46)
[2021-01-03] MEDS: TIMOLOL OPTH SCH (09:00)
[2021-01-03] MEDS: SITAGLIPTIN PHOS 100 MG TAB PO SCH (09:07)
[2021-01-03] MEDS: VALSARTAN 160 MG TAB PO SCH (09:07)
[2021-01-03] MEDS: THIAMINE HCL 100 MG TABLET PO SCH (09:08)
[2021-01-03] MEDS: MULTIVIT W/ MINERAL TAB PO SCH (09:08)
[2021-01-03] MEDS: predniSONE 20 MG TAB PO SCH ×2 (09:08→19:44)
[2021-01-03] MEDS: CALCIUM CARB 500MG/VIT D 200 IU TAB PO SCH ×2 (09:08→19:44)
[2021-01-03] MEDS: ZINC SULFATE 220 MG CAP PO SCH (09:08)
[2021-01-03] MEDS: AMLODIPINE 5 MG TAB PO SCH (09:08)
[2021-01-03] MEDS: FOLIC ACID 1 MG TABLET PO SCH ×2 (09:08→19:44)
[2021-01-03] MEDS: ENOXAPARIN 40 MG/0.4 ML SQ SCH (09:11)
[2021-01-03] MEDS: HYDRALAZINE HCL 20 MG/ML VIAL IV PRN (09:25)
[2021-01-03] MEDS ORDERED: HYDROCORTISONE SUC 100 MG INJ IV ONE (11:03)
[2021-01-03] MEDS ORDERED: CALCIUM GLUC 10% INJ 9.3 MEQ in NA CHLORIDE 0.9% 100 ML IV ONE (15:30)
[2021-01-03] MEDS ORDERED: KCL 20 MEQ/100 mL IVPB 20 MEQ/100 ML BAG IV SCH (16:00)
[2021-01-03] MEDS ORDERED: NA CHLORIDE 0.9% 250 ML ONE (16:29)
[2021-01-03] MEDS: DONEPEZIL HCL 5 MG TAB PO SCH (19:44)
[2021-01-03] MEDS: INSULIN GLARGINE 100 UNITS/ML SQ SCH (19:45)
[2021-01-04] MEDS: HYDRALAZINE HCL 20 MG/ML VIAL IV PRN (04:28)
[2021-01-04 05:08] LABS: BUN Blood Urea Nitrogen 7 mg/dL (7-18); Bicarbonate 26 mmol/L (21-32); Glucose Level 259 mg/dL (74-106); Potassium 3.7 mmol/L (3.5-5.1); Sodium Level 137 mmol/L (136-145)
[2021-01-04] MEDS: LEVOTHYROXINE SOD 0.125 MG TAB PO SCH (05:37)
[2021-01-04] MEDS ORDERED: KCL 20 MEQ/100 mL IVPB 20 MEQ/100 ML BAG IV SCH (06:00)
[2021-01-04] MEDS: INSULIN -REGULAR HUMAN 50 UNIT/0.5 ML ML SQ SCH ×4 (07:30→21:46)
[2021-01-04] MEDS: ENSURE PUDDING 4 OZ CUP PO SCH ×3 (09:00→20:58)
[2021-01-04] MEDS: TIMOLOL OPTH SCH (09:00)
[2021-01-04] MEDS: ENOXAPARIN 40 MG/0.4 ML SQ SCH (10:27)
[2021-01-04] MEDS: VALSARTAN 160 MG TAB PO SCH (10:28)
[2021-01-04] MEDS: CALCIUM CARB 500MG/VIT D 200 IU TAB PO SCH ×2 (10:28→20:59)
[2021-01-04] MEDS: MULTIVIT W/ MINERAL TAB PO SCH (10:28)
[2021-01-04] MEDS: SITAGLIPTIN PHOS 100 MG TAB PO SCH (10:28)
[2021-01-04] MEDS: ZINC SULFATE 220 MG CAP PO SCH (10:29)
[2021-01-04] MEDS: AMLODIPINE 5 MG TAB PO SCH (10:29)
[2021-01-04] MEDS: FOLIC ACID 1 MG TABLET PO SCH ×2 (10:29→20:59)
[2021-01-04] MEDS: predniSONE 20 MG TAB PO SCH ×2 (10:29→20:59)
[2021-01-04] MEDS: THIAMINE HCL 100 MG TABLET PO SCH (10:29)
[2021-01-04] MEDS ORDERED: HYDROCORTISONE SUC 100 MG INJ IV ONE (12:38)
[2021-01-04] MEDS ORDERED: CALCIUM GLUC 10% INJ 9.3 MEQ in NA CHLORIDE 0.9% 100 ML IV ONE (12:39)
[2021-01-04] MEDS: DONEPEZIL HCL 5 MG TAB PO SCH (20:58)
[2021-01-04] MEDS: INSULIN GLARGINE 100 UNITS/ML SQ SCH (21:45)
[2021-01-05 05:18] LABS: Absolute Lymphocytes (CBC) 0.5 K/uL (0.7-4.9); Basophils % 0.2 % (0-1.3); Hematocrit 29.8 % (36.0-45.0); Lymphocytes % 8.8 % (15.3-44.8); MPV 7.9 fL (7.6-11.3); RBC Red Blood Cell Count 3.22 M/uL (3.86-4.86)
[2021-01-05 05:37] LABS: Albumin 2.4 g/dL (3.4-5.0); Bilirubin Total 0.3 mg/dL (0.2-1.0); Phosphorus 3.7 mg/dL (2.5-4.9); Potassium 3.2 mmol/L (3.5-5.1); Protein, Total 6.2 g/dL (6.4-8.2)
[2021-01-05] MEDS: LEVOTHYROXINE SOD 0.125 MG TAB PO SCH (05:39)
[2021-01-05] MEDS: KCL 20 MEQ/100 mL IVPB 20 MEQ/100 ML BAG IV SCH ×2 (06:21→08:31)
[2021-01-05] MEDS ORDERED: NA CHLORIDE 0.9% 500 ML ONE (06:53)
--- NOTE | 2021-01-05 07:05 | RAD REPORT ---
EXAM DESCRIPTION: RAD - Chest Single View - 01/05/2021 6:23 am CLINICAL HISTORY: pneumonia COMPARISON: December 30 TECHNIQUE: AP portable chest image was obtained 01/05/2021 6:23 am . FINDINGS: Cardiomegaly remains. Mild vascular engorgement is present showing improvement from compar jin. Overall lung markings are improved. Medial base shows diminished opacification. Trachea is midl ine. No pneumothorax or large pleural effusion. Small bilateral pleural effusions are suspected. No a cute bony abnormality seen. No acute aortic findings suspected. IMPRESSION: Failure/volume overload and suspected right base pneumonia all show improvement from Dec 14. Persistent cardiomegaly.
[2021-01-05] MEDS: INSULIN -REGULAR HUMAN 50 UNIT/0.5 ML ML SQ SCH ×4 (07:30→21:07)
[2021-01-05] MEDS: ENOXAPARIN 40 MG/0.4 ML SQ SCH (08:34)
[2021-01-05] MEDS: CALCIUM CARB 500MG/VIT D 200 IU TAB PO SCH ×2 (08:35→21:00)
[2021-01-05] MEDS: SITAGLIPTIN PHOS 100 MG TAB PO SCH (08:35)
[2021-01-05] MEDS: ZINC SULFATE 220 MG CAP PO SCH (08:35)
[2021-01-05] MEDS: MULTIVIT W/ MINERAL TAB PO SCH (08:35)
[2021-01-05] MEDS: AMLODIPINE 5 MG TAB PO SCH (08:35)
[2021-01-05] MEDS: predniSONE 20 MG TAB PO SCH ×2 (08:36→21:07)
[2021-01-05] MEDS: VALSARTAN 160 MG TAB PO SCH (08:36)
[2021-01-05] MEDS: ENSURE PUDDING 4 OZ CUP PO SCH ×3 (08:36→21:00)
[2021-01-05] MEDS: THIAMINE HCL 100 MG TABLET PO SCH (08:36)
[2021-01-05] MEDS: FOLIC ACID 1 MG TABLET PO SCH ×2 (08:36→21:07)
[2021-01-05] MEDS: TIMOLOL OPTH SCH (08:37)
[2021-01-05 12:47] LABS: Blood Morphology Comment NOT SEEN (NOT SEEN); Platelet Estimate ADEQ; Platelets, Giant PRESENT
--- NOTE | 2021-01-05 19:01 | P.PN ---
Date of Service: 01/03/21 Subjective Will stop IV fluids. Spoke with family regarding plan of care. Will stop IV fluids and try to get patient to maintain her hydration and nutrition on her own. If she is able the eat and drink then plan is to try to get her to [facility] per family's request. section gang worker working on this. If patient's nutrition is not improving then they will consider hospice care although they do want her to get to a halfway facility more so than going to hospice care at this time. Spoke to the about inpatient hospice as well. Review of Systems is unable to be obtained (Patient is demented) Physical Examination - Vital Signs Reviewed - Physical Exam General: Alert, Demented Respiratory: Rhonchi in the right lower lobe Cardiovascular: Regular rate/rhythm, Normal S1 S2, No murmurs Gastrointestinal: Normal bowel sounds, Soft and benign, Non-distended, No tenderness Musculoskeletal: No clubbing, No swelling, No tenderness Neurological: Sensation intact, Cranial nerves 3-12 intact Assessment & Plan - Problems (Diagnosis) (1) Status post fracture of left hip Current Visit: Yes Status: Acute (2) Altered mental status Onset Date: 02/18/16 Current Visit: No Status: Acute Qualifiers: Altered mental status type: unspecified Qualified Code(s): R41.82 - Altered mental status, unspecified (3) Alzheimer's type dementia Current Visit: No Status: Acute (4) Diabetes mellitus Onset Date: 02/18/16 Current Visit: No Status: Chronic (5) Hyperlipidemia Onset Date: 02/18/16 Current Visit: No Status: Chronic Qualifiers: (6) Hypertension Onset Date: 02/18/16 Current Visit: No Status: Chronic Qualifiers: (7) Aspiration pneumonia Current Visit: Yes Status: Acute (8) Malnourished Current Visit: Yes Status: Acute Qualifiers: Malnutrition type: protein-calorie malnutrition - Plan Continue with plan of care as mentioned below 1. Continue with oral antibiotic 2. Hep-Lock IV 3. Repeat chest x-ray 4. Pureed diet with honey thick liquids; monitor caloric intake 5. Strict blood pressure and blood sugar control 6. Continue with nebs as needed 7. O2 per protocol 8. Physical therapy 9. Monitor labs closely 10. GI and DVT prophylaxis - Discharge planning Family wanted patient to go back to a halfway facility but they wanted change it to [facility]. Patient does not require 1 on 1 sitter anymore. Patient is not getting out of bed. She also has some skin breakdowns. They would prefer [facility]. If she is not doing well with her diet can she is becoming dehydrated then hospice care may be more appropriate for her. I have smoking to the regarding this as well. He cannot do hospice care at home but would prefer an inpatient hospice facility if we have to do that.
--- NOTE | 2021-01-05 19:11 | P.PN ---
Date of Service: 01/04/21 Subjective Patient had about 25% of her meals. Trying to get her to eat ice cream and Ensure as well. Has stopped all hydration and patient needs to manage her nutrition on her own so we can see if she will be able to participate with therapy or if she will be better suited for hospice care. Spoke with family regarding plan of care. Plan is to try to get her to [facility] per family's request. nail mill worker working on this. If patient's nutrition is not improving then they will consider hospice care although they do want her to get to a assisted facility more so than going to hospice care at this time. Spoke to the about inpatient hospice as well. Review of Systems is unable to be obtained (Patient is demented) Physical Examination - Vital Signs Reviewed - Physical Exam General: Alert, Demented Respiratory: Rhonchi in the right lower lobe Cardiovascular: Regular rate/rhythm, Normal S1 S2, No murmurs Gastrointestinal: Normal bowel sounds, Soft and benign, Non-distended, No tenderness Musculoskeletal: No clubbing, No swelling, No tenderness Neurological: Sensation intact, Cranial nerves 3-12 intact Assessment & Plan - Problems (Diagnosis) (1) Status post fracture of left hip Current Visit: Yes Status: Acute (2) Altered mental status Onset Date: 02/18/16 Current Visit: No Status: Acute Qualifiers: Altered mental status type: unspecified Qualified Code(s): R41.82 - Altered mental status, unspecified (3) Alzheimer's type dementia Current Visit: No Status: Acute (4) Diabetes mellitus Onset Date: 02/18/16 Current Visit: No Status: Chronic (5) Hyperlipidemia Onset Date: 02/18/16 Current Visit: No Status: Chronic Qualifiers: (6) Hypertension Onset Date: 02/18/16 Current Visit: No Status: Chronic Qualifiers: (7) Aspiration pneumonia Current Visit: Yes Status: Acute (8) Malnourished Current Visit: Yes Status: Acute Qualifiers: Malnutrition type: protein-calorie malnutrition - Plan Continue with plan of care as mentioned below 1. Monitor calorie count closely 2. Hep-Lock IV 3. Repeat chest x-ray 4. Pureed diet with honey thick liquids; monitor caloric intake 5. Strict blood pressure and blood sugar control 6. Continue with nebs as needed 7. O2 per protocol 8. Physical therapy 9. Monitor labs closely 10. GI and DVT prophylaxis - Discharge planning Family wanted patient to go back to a assisted facility but they wanted change it to [facility]. Patient does not require 1 on 1 sitter anymore. Patient is not getting out of bed. She also has some skin breakdowns. They would prefer [facility]. If she is not doing well with her diet can she is becoming dehydrated then hospice care may be more appropriate for her. I have smoking to the regarding this as well. He cannot do hospice care at home but would prefer an inpatient hospice facility if we have to do that.
--- NOTE | 2021-01-05 19:16 | P.PN ---
Date of Service: 01/05/21 Subjective According to the patient ate most of her breakfast and lunch today. However, when I looked at her lunch tray she only had about 50% of each of her meals and only a little bit of her ice cream. (January 04): Patient had about 25% of her meals. Trying to get her to eat ice cream and En sure as well. Has stopped all hydration and patient needs to manage her nutrition on her own so we can see if she will be able to participate with therapy or if she will be better suited for hospice care. Spoke with family regarding plan of care. Plan is to try to get her to [facility] per family's request. tradeshow worker working on this. If patient's nutrition is not improving then they will consider hospice care although they do want her to get to a long term facility more so than going to hospice care at this time. Spoke to the about inpatient hospice as well. Review of Systems is unable to be obtained (Patient is demented) Physical Examination - Vital Signs Reviewed - Physical Exam General: Alert, Demented Respiratory: Rhonchi in the right lower lobe Cardiovascular: Regular rate/rhythm, Normal S1 S2, No murmurs Gastrointestinal: Normal bowel sounds, Soft and benign, Non-distended, No tenderness Musculoskeletal: No clubbing, No swelling, No tenderness Neurological: Sensation intact, Cranial nerves 3-12 intact Assessment & Plan - Problems (Diagnosis) (1) Status post fracture of left hip Current Visit: Yes Status: Acute (2) Altered mental status Onset Date: 02/18/16 Current Visit: No Status: Acute Qualifiers: Altered mental status type: unspecified Qualified Code(s): R41.82 - Altered mental status, unspecified (3) Alzheimer's type dementia Current Visit: No Status: Acute (4) Diabetes mellitus Onset Date: 02/18/16 Current Visit: No Status: Chronic (5) Hyperlipidemia Onset Date: 02/18/16 Current Visit: No Status: Chronic Qualifiers: (6) Hypertension Onset Date: 02/18/16 Current Visit: No Status: Chronic Qualifiers: (7) Aspiration pneumonia Current Visit: Yes Status: Acute (8) Malnourished Current Visit: Yes Status: Acute Qualifiers: Malnutrition type: protein-calorie malnutrition - Plan Continue with plan of care as mentioned below 1. Monitoring calorie count closely; repeat labs in the morning 2. Hep-Lock IV; told family that patient needs to maintain nutrition on her own 3. Repeated chest x-ray; this all is showing improvement including pneumonia on the right side and the volume status is stable 4. Continue with Pureed diet with honey thick liquids; monitor caloric intake 5. Strict blood pressure and blood sugar control 6. Continue with nebs as needed 7. O2 per protocol 8. Physical therapy even if this just transferring patient needs to continue 9. GI and DVT prophylaxis - Discharge planning Family wanted patient to go back to a long term facility but they wanted change it to [facility]. Patient does not require 1 on 1 sitter anymore. Patient is not getting out of bed. She also has some skin breakdowns. They would prefer [facility]. If she is not doing well with her diet can she is becoming dehydrated then hospice care may be more appropriate for her. I have smoking to the regarding this as well. He cannot do hospice care at home but would prefer an inpatient hospice facility if we have to do that.
[2021-01-05] MEDS: levoFLOXacin 500 MG TAB PO SCH (21:06)
[2021-01-05] MEDS: DONEPEZIL HCL 5 MG TAB PO SCH (21:07)
[2021-01-05] MEDS: INSULIN GLARGINE 100 UNITS/ML SQ SCH (21:08)
--- NOTE | 2021-01-06 05:48 | P.PN ---
Subjective Date of Service: 01/06/21 Primary Care Provider: Dr. Mathew Chief Complaint: Severe sepsis, aspiration pneumonia Subjective: Other (PT to evaluate for SNF. No sitter required last night. Ate about 50% with encouragement yesterday. Patient with dementia.) Physical Examination - Vital Signs Temperature: 97 F Blood Pressure: 147/68 Pulse: 64 Respirations: 16 Pulse Ox (%): 97 - Studies Medications List Reviewed: Yes Assessment & Plan Discharge Plan: Other (SNF) Plan to discharge in: 24 Hours Physician Review Additional Text: CT Chest: COMPARISON: Chest Single View dated 12/28/2020 TECHNIQUE: Dynamically enhanced 3 mm thick images of the chest were obtained during administration of approximately 150mL Isovue 370 IV contrast. Coronal and oblique MIP reconstruction images were generated and reviewed. Exam utilizes a protocol to evaluate the pulmonary arterial tree. All CT scans are performed using dose optimization technique as appropriate and may include automated exposure control or mA/KV adjustment according to patient size. FINDINGS: No pulmonary emboli are identified. The aorta as imaged shows no acute or suspicious finding. No pericardial thickening or effusion. Patchy parenchymal opacification in stranding changes are present in the right middle lobe and inferior aspect of the lingula left upper lobe. There is no lower lobe mass or consolidation. Interstitial markings are prominent. There is complete opacification of the bronchus intermedius and multiple segmental and subsegmental bronchi of the right lower lobe. This could be mucous plugging. Aspiration is possible. An obstructive endobronchial mass is possible. No other bronchial obstructive process seen. No pleural effusion or pleural thickening. No mediastinal or hilar suspicious masses. No chest wall masses or abnormal axillary lymphadenopathy. IMPRESSION: No pulmonary emboli identified. Patchy opacification in the right middle lobe and lingula of the left upper lobe favored to be scarring or atelectasis. Minimal infiltrate is possible. Complete opacification of the bronchus intermedius and numerous right lower lobe segmental and subsegmental branches. This could be mucous plugging from an infectious/inflammatory process or possibly due to aspiration. An obstructing endobronchial mass is a differential consideration. CT Head: FINDINGS: No intracranial hemorrhage, mass, edema or shift of mid-line structures. No acute cortical based infarction, cortical edema or sulcal effacement. No abnormal extra-axial fluid collections. Moderate severity atrophy and chronic ischemic changes are present. Ventriculomegaly is in proportion to the amount of volume loss. Dense arterial tree calcifications are present. Mastoid air cells and visualized portions of the paranasal sinuses are clear. No acute bony findings. IMPRESSION: Negative non-contrast CT head examination for acute findings. Moderate severity atrophy and chronic ischemic change matching the December 17 comparison. Physical Exam: Patient resting in bed. Patient with severe dementia. Heart: Regular rate rhythm Lungs: Clear anteriorly Abdomen: Soft, nontender, nondistended Extremities: Good range of motion. Mentation: Patient alert to stimuli. Still with increase sedation. Assessment Hypothermia, metabolic encephalopathy, severe sepsis secondary to right-sided aspiration pneumonia Acute kidney injury superimposed on CKD 2 Diabetes mellitus type 2 Advanced Alzheimer's/dementia Status post left femoral neck repair Anemia of chronic disease Hypothyroidism Hypertension Plan Hypothermia, metabolic encephalopathy, severe sepsis secondary to right-sided aspiration pneumonia: Continue with Levaquin for 3 more days. Chest x-ray shows improvement. Spoke with granddaughter. Continue physical therapy. Granddaughter desires patient to go to skilled facility. Continue with skilled placement at this time. Acute kidney injury superimposed on CKD 2: Overall stable. Diabetes mellitus type 2: Continue with Lantus 10 units subcu daily. Patient also on Januvia. Will monitor and adjust medication. Prednisone discontinued. Advanced Alzheimer's/dementia: Patient remains DNR. Continue Aricept. Status post left femoral neck repair: Stable, continue Lovenox. Fall precautions. Anemia of chronic disease: Hemoglobin was 7.1 this morning. Will transfuse 1 unit. Maintain hemoglobin above 7.5. Will continue to monitor closely.. Hypothyroidism: Will review and restart home medication. Hypertension: Continue Norvasc and valsartan DVT prophylaxis Lovenox Code status: Do not resuscitate Advanced care planning-30 min: Spoke with granddaughter. Granddaughter recommend skilled placement. Patient does not need sitter. Continue with physical therapy. Anticipate approval to skilled placement soon. If her condition declines in the future they will consider hospice. Time Spent Managing Pts Care (In Minutes): 55
[2021-01-06 05:55] LABS: Absolute Lymphocytes (CBC) 0.5 K/uL (0.7-4.9); Basophils % 0.3 % (0-1.3); Hematocrit 29.8 % (36.0-45.0); Lymphocytes % 7.5 % (15.3-44.8); MPV 7.8 fL (7.6-11.3); RBC Red Blood Cell Count 3.19 M/uL (3.86-4.86)
[2021-01-06 06:06] LABS: BUN Blood Urea Nitrogen 14 mg/dL (7-18); Bicarbonate 28 mmol/L (21-32); Glucose Level 90 mg/dL (74-106); Magnesium 2.1 mg/dL (1.8-2.4); Potassium 3.4 mmol/L (3.5-5.1); Sodium Level 138 mmol/L (136-145)
[2021-01-06] MEDS: LEVOTHYROXINE SOD 0.125 MG TAB PO SCH (06:38)
[2021-01-06] MEDS: KCL 20 MEQ/100 mL IVPB 20 MEQ/100 ML BAG IV SCH ×2 (06:38→08:42)
[2021-01-06 07:21] LABS: Blood Morphology Comment NOT SEEN (NOT SEEN); Platelet Estimate ADEQ
[2021-01-06] MEDS: INSULIN -REGULAR HUMAN 50 UNIT/0.5 ML ML SQ SCH ×4 (07:30→22:24)
[2021-01-06] MEDS: SITAGLIPTIN PHOS 100 MG TAB PO SCH (08:42)
[2021-01-06] MEDS: MULTIVIT W/ MINERAL TAB PO SCH (08:42)
[2021-01-06] MEDS: FOLIC ACID 1 MG TABLET PO SCH ×2 (08:43→20:36)
[2021-01-06] MEDS: predniSONE 20 MG TAB PO SCH (08:43)
[2021-01-06] MEDS: THIAMINE HCL 100 MG TABLET PO SCH (08:43)
[2021-01-06] MEDS: AMLODIPINE 5 MG TAB PO SCH (08:43)
[2021-01-06] MEDS: VALSARTAN 160 MG TAB PO SCH (08:43)
[2021-01-06] MEDS: ENOXAPARIN 40 MG/0.4 ML SQ SCH (08:44)
[2021-01-06] MEDS: ENSURE PUDDING 4 OZ CUP PO SCH ×3 (08:44→20:36)
[2021-01-06] MEDS: TIMOLOL OPTH SCH (08:45)
[2021-01-06] MEDS: ZINC SULFATE 220 MG CAP PO SCH (08:45)
[2021-01-06] MEDS: CALCIUM CARB 500MG/VIT D 200 IU TAB PO SCH ×2 (08:45→21:00)
[2021-01-06] MEDS ORDERED: KCL 20 MEQ/100 mL IVPB 20 MEQ/100 ML BAG IV SCH (19:00)
[2021-01-06] MEDS: levoFLOXacin 500 MG TAB PO SCH (20:36)
[2021-01-06] MEDS: INSULIN GLARGINE 100 UNITS/ML SQ SCH (20:36)
[2021-01-06] MEDS: DONEPEZIL HCL 5 MG TAB PO SCH (20:36)
[2021-01-07 04:25] LABS: Potassium 3.3 mmol/L (3.5-5.1)
[2021-01-07] MEDS: KCL 20 MEQ/100 mL IVPB 20 MEQ/100 ML BAG IV SCH ×2 (05:06→08:15)
[2021-01-07] MEDS: LEVOTHYROXINE SOD 0.125 MG TAB PO SCH (05:06)
--- NOTE | 2021-01-07 05:52 | P.PN ---
Subjective Date of Service: 01/07/21 Primary Care Provider: Dr. Mathew Chief Complaint: Severe sepsis, aspiration pneumonia Subjective: Doing well, Demented Physical Examination - Vital Signs Temperature: 97.6 F Blood Pressure: 136/92 Pulse: 76 Respirations: 16 Pulse Ox (%): 96 - Studies Medications List Reviewed: Yes Assessment & Plan Discharge Plan: Other (prison facility) Plan to discharge in: 24 Hours Physician Review Additional Text: CT Chest: COMPARISON: Chest Single View dated 12/28/2020 TECHNIQUE: Dynamically enhanced 3 mm thick images of the chest were obtained during administration of approximately 150mL Isovue 370 IV contrast. Coronal and oblique MIP reconstruction images were generated and reviewed. Exam utilizes a protocol to evaluate the pulmonary arterial tree. All CT scans are performed using dose optimization technique as appropriate and may include automated exposure control or mA/KV adjustment according to patient size. FINDINGS: No pulmonary emboli are identified. The aorta as imaged shows no acute or suspicious finding. No pericardial thickening or effusion. Patchy parenchymal opacification in stranding changes are present in the right middle lobe and inferior aspect of the lingula left upper lobe. There is no lower lobe mass or consolidation. Interstitial markings are prominent. There is complete opacification of the bronchus intermedius and multiple segmental and subsegmental bronchi of the right lower lobe. This could be mucous plugging. Aspiration is possible. An obstructive endobronchial mass is possible. No other bronchial obstructive process seen. No pleural effusion or pleural thickening. No mediastinal or hilar suspicious masses. No chest wall masses or abnormal axillary lymphadenopathy. IMPRESSION: No pulmonary emboli identified. Patchy opacification in the right middle lobe and lingula of the left upper lobe favored to be scarring or atelectasis. Minimal infiltrate is possible. Complete opacification of the bronchus intermedius and numerous right lower lobe segmental and subsegmental branches. This could be mucous plugging from an infectious/inflammatory process or possibly due to aspiration. An obstructing endobronchial mass is a differential consideration. CT Head: FINDINGS: No intracranial hemorrhage, mass, edema or shift of mid-line structures. No acute cortical based infarction, cortical edema or sulcal effacement. No abnormal extra-axial fluid collections. Moderate severity atrophy and chronic ischemic changes are present. Ventriculomegaly is in proportion to the amount of volume loss. Dense arterial tree calcifications are present. Mastoid air cells and visualized portions of the paranasal sinuses are clear. No acute bony findings. IMPRESSION: Negative non-contrast CT head examination for acute findings. Moderate severity atrophy and chronic ischemic change matching the December 17 comparison. Physical Exam: Patient resting in bed. Patient with severe dementia. Heart: Regular rate rhythm Lungs: Clear anteriorly Abdomen: Soft, nontender, nondistended Extremities: Good range of motion. Mentation: Patient alert to stimuli. Still with increase sedation. Assessment Hypothermia, metabolic encephalopathy, severe sepsis secondary to right-sided aspiration pneumonia Acute kidney injury superimposed on CKD 2 Diabetes mellitus type 2 Advanced Alzheimer's/dementia Status post left femoral neck repair Anemia of chronic disease Hypothyroidism Hypertension Plan Hypothermia, metabolic encephalopathy, severe sepsis secondary to right-sided aspiration pneumonia: Continue with Levaquin for 2 more days. Chest x-ray shows improvement. Patient on room air. Patient continues to work with physical therapy. No need for sitter. Dementia stable. Blood sugars also stable currently on Lantus and Januvia. Spoke with granddaughter yesterday. Granddaughter desires the patient to go to a skilled facility. Await approval to skilled facility. Granddaughter considering hospice in the future if her condition declines. Fall precaution in place. Acute kidney injury superimposed on CKD 2: Overall stable. Diabetes mellitus type 2: Continue with Lantus 10 units subcu daily. Patient also on Januvia. Will monitor and adjust medication. Prednisone discontinued. Advanced Alzheimer's/dementia: Patient remains DNR. Continue Aricept. Status post left femoral neck repair: Stable, continue Lovenox. Fall precautions. Anemia of chronic disease: Hemoglobin was 7.1 this morning. Will transfuse 1 unit. Maintain hemoglobin above 7.5. Will continue to monitor closely.. Hypothyroidism: Continue medication. Hypertension: Continue Norvasc and valsartan DVT prophylaxis Lovenox Code status: Do not resuscitate Advanced care planning-30 min: Spoke with granddaughter yesterday. Granddaughter desires skilled placement for the patient. No need for sitter at this time. Continue physical therapy. Await approval for skilled placement. If her condition declines in the future then family would consider hospice. No need for hospice at this time. Time Spent Managing Pts Care (In Minutes): 55
[2021-01-07] MEDS: INSULIN -REGULAR HUMAN 50 UNIT/0.5 ML ML SQ SCH ×4 (07:30→20:14)
[2021-01-07] MEDS: ZINC SULFATE 220 MG CAP PO SCH (08:16)
[2021-01-07] MEDS: VALSARTAN 160 MG TAB PO SCH (08:16)
[2021-01-07] MEDS: MULTIVIT W/ MINERAL TAB PO SCH (08:16)
[2021-01-07] MEDS: THIAMINE HCL 100 MG TABLET PO SCH (08:16)
[2021-01-07] MEDS: AMLODIPINE 5 MG TAB PO SCH (08:16)
[2021-01-07] MEDS: SITAGLIPTIN PHOS 100 MG TAB PO SCH (08:16)
[2021-01-07] MEDS: FOLIC ACID 1 MG TABLET PO SCH ×2 (08:16→19:56)
[2021-01-07] MEDS: ENOXAPARIN 40 MG/0.4 ML SQ SCH (08:17)
[2021-01-07] MEDS: CALCIUM CARB 500MG/VIT D 200 IU TAB PO SCH ×2 (08:18→19:56)
[2021-01-07] MEDS: ENSURE PUDDING 4 OZ CUP PO SCH ×3 (08:18→19:56)
[2021-01-07] MEDS: TIMOLOL OPTH SCH (08:18)
[2021-01-07] MEDS ORDERED: predniSONE 20 MG TAB PO SCH (09:00)
[2021-01-07] MEDS ORDERED: POTASSIUM 25 MEQ EFFERV TAB PO ONE (18:00)
[2021-01-07] MEDS: DONEPEZIL HCL 5 MG TAB PO SCH (19:55)
[2021-01-07] MEDS: levoFLOXacin 500 MG TAB PO SCH (19:55)
[2021-01-07] MEDS: INSULIN GLARGINE 100 UNITS/ML SQ SCH (19:56)
[2021-01-08 04:49] LABS: Potassium 3.4 mmol/L (3.5-5.1)
[2021-01-08] MEDS: LEVOTHYROXINE SOD 0.125 MG TAB PO SCH (05:20)
[2021-01-08] MEDS: KCL 20 MEQ/100 mL IVPB 20 MEQ/100 ML BAG IV SCH ×2 (05:20→07:32)
--- NOTE | 2021-01-08 05:52 | P.PN ---
Subjective Date of Service: 01/08/21 Primary Care Provider: Dr. Mathew Chief Complaint: Severe sepsis, aspiration pneumonia Subjective: Other (Patient with dementia. Nurses report that she is eating better. She is trying to work with PT. It appears that she is making progress.) Physical Examination - Vital Signs Temperature: 97.8 F Blood Pressure: 168/71 Pulse: 97 Respirations: 18 Pulse Ox (%): 97 - Studies Medications List Reviewed: Yes Assessment & Plan Discharge Plan: Other (SNF) Plan to discharge in: 24 Hours Physician Review Additional Text: CT Chest: COMPARISON: Chest Single View dated 12/28/2020 TECHNIQUE: Dynamically enhanced 3 mm thick images of the chest were obtained during administration of approximately 150mL Isovue 370 IV contrast. Coronal and oblique MIP reconstruction images were generated and reviewed. Exam utilizes a protocol to evaluate the pulmonary arterial tree. All CT scans are performed using dose optimization technique as appropriate and may include automated exposure control or mA/KV adjustment according to patient size. FINDINGS: No pulmonary emboli are identified. The aorta as imaged shows no acute or suspicious finding. No pericardial thickening or effusion. Patchy parenchymal opacification in stranding changes are present in the right middle lobe and inferior aspect of the lingula left upper lobe. There is no lower lobe mass or consolidation. Interstitial markings are prominent. There is complete opacification of the bronchus intermedius and multiple segmental and subsegmental bronchi of the right lower lobe. This could be mucous plugging. Aspiration is possible. An obstructive endobronchial mass is possible. No other bronchial obstructive process seen. No pleural effusion or pleural thickening. No mediastinal or hilar suspicious masses. No chest wall masses or abnormal axillary lymphadenopathy. IMPRESSION: No pulmonary emboli identified. Patchy opacification in the right middle lobe and lingula of the left upper lobe favored to be scarring or atelectasis. Minimal infiltrate is possible. Complete opacification of the bronchus intermedius and numerous right lower lobe segmental and subsegmental branches. This could be mucous plugging from an infectious/inflammatory process or possibly due to aspiration. An obstructing endobronchial mass is a differential consideration. CT Head: FINDINGS: No intracranial hemorrhage, mass, edema or shift of mid-line structures. No acute cortical based infarction, cortical edema or sulcal effacement. No abnormal extra-axial fluid collections. Moderate severity atrophy and chronic ischemic changes are present. Ventriculomegaly is in proportion to the amount of volume loss. Dense arterial tree calcifications are present. Mastoid air cells and visualized portions of the paranasal sinuses are clear. No acute bony findings. IMPRESSION: Negative non-contrast CT head examination for acute findings. Moderate severity atrophy and chronic ischemic change matching the December 17 comparison. Physical Exam: Patient resting in bed. Patient with severe dementia but appropriate. No agitation noted. Heart: Regular rate rhythm Lungs: Clear anteriorly Abdomen: Soft, nontender, nondistended Extremities: Good range of motion. Mentation: Patient alert to stimuli. Assessment Hypothermia, metabolic encephalopathy, severe sepsis secondary to right-sided aspiration pneumonia Acute kidney injury superimposed on CKD 2 Diabetes mellitus type 2 Advanced Alzheimer's/dementia Status post left femoral neck repair Anemia of chronic disease Hypothyroidism Hypertension Plan Hypothermia, metabolic encephalopathy, severe sepsis secondary to right-sided aspiration pneumonia: Continue with Levaquin for 1 more days. Chest x-ray shows improvement. Patient on room air. Patient continues to work with physical therapy. No need for sitter. Dementia stable. Blood sugars also stable currently on Lantus and Januvia. Currently waiting on approval for SNF. Granddaughter desires the patient to go to a skilled facility. Anticipate approval today. Patient medically cleared to go to SNF. Granddaughter considering hospice in the future if her condition declines. Fall precaution in place. Acute kidney injury superimposed on CKD 2: Overall stable. Diabetes mellitus type 2: Continue with Lantus 10 units subcu daily. Patient also on Januvia. Will monitor and adjust medication. Prednisone discontinued. Advanced Alzheimer's/dementia: Patient remains DNR. Continue Aricept. Status post left femoral neck repair: Stable, continue Lovenox. Fall precautions. Anemia of chronic disease: Hemoglobin was 7.1 this morning. Will transfuse 1 unit. Maintain hemoglobin above 7.5. Will continue to monitor closely.. Hypothyroidism: Continue medication. Hypertension: Continue Norvasc and valsartan DVT prophylaxis Lovenox Code status: Do not resuscitate Advanced care planning-30 min: Granddaughter desires skilled placement for the patient. No need for sitter at this time. Continue physical therapy. Await approval for skilled placement. If her condition declines in the future then family would consider hospice. No need for hospice at this time. Time Spent Managing Pts Care (In Minutes): 55
[2021-01-08] MEDS: INSULIN -REGULAR HUMAN 50 UNIT/0.5 ML ML SQ SCH ×4 (07:30→20:11)
[2021-01-08] MEDS: THIAMINE HCL 100 MG TABLET PO SCH (07:33)
[2021-01-08] MEDS: ZINC SULFATE 220 MG CAP PO SCH ×2 (07:33→07:34)
[2021-01-08] MEDS: FOLIC ACID 1 MG TABLET PO SCH ×2 (07:33→19:55)
[2021-01-08] MEDS: MULTIVIT W/ MINERAL TAB PO SCH (07:33)
[2021-01-08] MEDS: ENOXAPARIN 40 MG/0.4 ML SQ SCH (07:34)
[2021-01-08] MEDS: ENSURE PUDDING 4 OZ CUP PO SCH ×3 (07:35→19:55)
[2021-01-08] MEDS: CALCIUM CARB 500MG/VIT D 200 IU TAB PO SCH ×2 (07:36→19:55)
[2021-01-08] MEDS: VALSARTAN 160 MG TAB PO SCH (07:37)
[2021-01-08] MEDS: AMLODIPINE 5 MG TAB PO SCH (07:38)
[2021-01-08] MEDS: TIMOLOL OPTH SCH (09:00)
[2021-01-08] MEDS: SITAGLIPTIN PHOS 100 MG TAB PO SCH (12:04)
[2021-01-08] MEDS: JUVEN PACKET PO SCH ×2 (12:05→19:55)
[2021-01-08] MEDS ORDERED: POTASSIUM 25 MEQ EFFERV TAB PO ONE (15:00)
[2021-01-08] MEDS: levoFLOXacin 500 MG TAB PO SCH (19:55)
[2021-01-08] MEDS: DONEPEZIL HCL 5 MG TAB PO SCH (19:55)
[2021-01-08] MEDS: INSULIN GLARGINE 100 UNITS/ML SQ SCH (20:11)
[2021-01-09 04:04] LABS: BUN Blood Urea Nitrogen 16 mg/dL (7-18); Bicarbonate 31 mmol/L (21-32); Glucose Level 150 mg/dL (74-106); Potassium 3.5 mmol/L (3.5-5.1); Sodium Level 137 mmol/L (136-145)
[2021-01-09] MEDS ORDERED: KCL 20 MEQ/100 mL IVPB 20 MEQ/100 ML BAG IV SCH (05:00)
[2021-01-09] MEDS: LEVOTHYROXINE SOD 0.125 MG TAB PO SCH (05:03)
[2021-01-09] MEDS ORDERED: NA CHLORIDE 0.9% 100 ML ONE (05:39)
--- NOTE | 2021-01-09 05:59 | P.PN ---
Subjective Date of Service: 01/09/21 Primary Care Provider: Dr. Mathew Chief Complaint: Severe sepsis, aspiration pneumonia Subjective: Improving, Demented, Other (Patient working with PT. She walked with PT yesterday.) Physical Examination - Vital Signs Temperature: 97 F Blood Pressure: 129/63 Pulse: 53 Respirations: 16 Pulse Ox (%): 95 - Studies Medications List Reviewed: Yes Assessment & Plan Discharge Plan: Other (SNF) Plan to discharge in: 24 Hours Physician Review Additional Text: CT Chest: COMPARISON: Chest Single View dated 12/28/2020 TECHNIQUE: Dynamically enhanced 3 mm thick images of the chest were obtained during administration of approximately 150mL Isovue 370 IV contrast. Coronal and oblique MIP reconstruction images were generated and reviewed. Exam utilizes a protocol to evaluate the pulmonary arterial tree. All CT scans are performed using dose optimization technique as appropriate and may include automated exposure control or mA/KV adjustment according to patient size. FINDINGS: No pulmonary emboli are identified. The aorta as imaged shows no acute or suspicious finding. No pericardial thickening or effusion. Patchy parenchymal opacification in stranding changes are present in the right middle lobe and inferior aspect of the lingula left upper lobe. There is no lower lobe mass or consolidation. Interstitial markings are prominent. There is complete opacification of the bronchus intermedius and multiple segmental and subsegmental bronchi of the right lower lobe. This could be mucous plugging. Aspiration is possible. An obstructive endobronchial mass is possible. No other bronchial obstructive process seen. No pleural effusion or pleural thickening. No mediastinal or hilar suspicious masses. No chest wall masses or abnormal axillary lymphadenopathy. IMPRESSION: No pulmonary emboli identified. Patchy opacification in the right middle lobe and lingula of the left upper lobe favored to be scarring or atelectasis. Minimal infiltrate is possible. Complete opacification of the bronchus intermedius and numerous right lower lobe segmental and subsegmental branches. This could be mucous plugging from an infectious/inflammatory process or possibly due to aspiration. An obstructing endobronchial mass is a differential consideration. CT Head: FINDINGS: No intracranial hemorrhage, mass, edema or shift of mid-line structures. No acute cortical based infarction, cortical edema or sulcal effacement. No abnormal extra-axial fluid collections. Moderate severity atrophy and chronic ischemic changes are present. Ventriculomegaly is in proportion to the amount of volume loss. Dense arterial tree calcifications are present. Mastoid air cells and visualized portions of the paranasal sinuses are clear. No acute bony findings. IMPRESSION: Negative non-contrast CT head examination for acute findings. Moderate severity atrophy and chronic ischemic change matching the December 17 comparison. Physical Exam: Patient resting in bed. Patient with severe dementia but appropriate. No agitation noted. Heart: Regular rate rhythm Lungs: Clear anteriorly Abdomen: Soft, nontender, nondistended Extremities: Good range of motion. Mentation: Patient alert to stimuli. Assessment Hypothermia, metabolic encephalopathy, severe sepsis secondary to right-sided aspiration pneumonia Acute kidney injury superimposed on CKD 2 Diabetes mellitus type 2 Advanced Alzheimer's/dementia Status post left femoral neck repair Anemia of chronic disease Hypothyroidism Hypertension Plan Hypothermia, metabolic encephalopathy, severe sepsis secondary to right-sided aspiration pneumonia: Treatment of pneumonia to be done today. Chest x-ray shows improvement. Patient on room air. Patient continues to work with physical therapy. She is walking with PT. No need for sitter. Dementia stable. Blood sugars also stable currently on Lantus and Januvia. Currently waiting on approval for SNF. Granddaughter desires the patient to go to a skilled facility. Anticipate approval today. Patient medically cleared to go to SNF. Granddaughter considering hospice in the future if her condition declines. Fall precaution in place. Acute kidney injury superimposed on CKD 2: Overall stable. Diabetes mellitus type 2: Continue with Lantus 10 units subcu daily. Patient also on Januvia. Will monitor and adjust medication. Prednisone discontinued. Advanced Alzheimer's/dementia: Patient remains DNR. Continue Aricept. Status post left femoral neck repair: Stable, continue Lovenox. Fall precautions. Anemia of chronic disease: Hemoglobin was 7.1 this morning. Will transfuse 1 unit. Maintain hemoglobin above 7.5. Will continue to monitor closely.. Hypothyroidism: Continue medication. Hypertension: Continue Norvasc and valsartan DVT prophylaxis Lovenox Code status: Do not resuscitate Advanced care planning-30 min: Granddaughter desires skilled placement for the patient. No need for sitter at this time. Continue physical therapy. Await approval for skilled placement. If her condition declines in the future then family would consider hospice. No need for hospice at this time. Time Spent Managing Pts Care (In Minutes): 55
[2021-01-09] MEDS: INSULIN -REGULAR HUMAN 50 UNIT/0.5 ML ML SQ SCH ×4 (07:30→21:00)
[2021-01-09] MEDS: JUVEN PACKET PO SCH ×2 (09:00→21:00)
[2021-01-09] MEDS: TIMOLOL OPTH SCH (09:00)
[2021-01-09] MEDS: ENSURE PUDDING 4 OZ CUP PO SCH ×3 (09:00→21:00)
[2021-01-09] MEDS: CALCIUM CARB 500MG/VIT D 200 IU TAB PO SCH ×2 (09:00→21:00)
[2021-01-09] MEDS: ENOXAPARIN 40 MG/0.4 ML SQ SCH (09:40)
[2021-01-09] MEDS: ZINC SULFATE 220 MG CAP PO SCH (09:40)
[2021-01-09] MEDS: VALSARTAN 160 MG TAB PO SCH (09:43)
[2021-01-09] MEDS: MULTIVIT W/ MINERAL TAB PO SCH (09:43)
[2021-01-09] MEDS: FOLIC ACID 1 MG TABLET PO SCH ×2 (09:44→21:41)
[2021-01-09] MEDS: SITAGLIPTIN PHOS 100 MG TAB PO SCH (09:44)
[2021-01-09] MEDS: AMLODIPINE 5 MG TAB PO SCH (09:45)
[2021-01-09] MEDS: THIAMINE HCL 100 MG TABLET PO SCH (09:46)
[2021-01-09] MEDS: INSULIN GLARGINE 100 UNITS/ML SQ SCH (21:40)
[2021-01-09] MEDS: DONEPEZIL HCL 5 MG TAB PO SCH (21:41)
[2021-01-10 05:12] LABS: Potassium 3.5 mmol/L (3.5-5.1)
[2021-01-10] MEDS ORDERED: POTASSIUM 25 MEQ EFFERV TAB PO ONE (06:17)
[2021-01-10] MEDS: LEVOTHYROXINE SOD 0.125 MG TAB PO SCH (06:17)
--- NOTE | 2021-01-10 06:18 | P.DS ---
Admission Date: 12/28/20 Discharge Date: 01/10/21 Primary Care Provider: Dr. Mathew Disposition: TRANSFER TO SNF - MEDICAL Discharge Condition: GOOD Reason for Admission: Severe sepsis, aspiration pneumonia Consultations: none Procedures: CT Chest: COMPARISON: Chest Single View dated 12/28/2020 TECHNIQUE: Dynamically enhanced 3 mm thick images of the chest were obtained during administration of approximately 150mL Isovue 370 IV contrast. Coronal and oblique MIP reconstruction images were generated and reviewed. Exam utilizes a protocol to evaluate the pulmonary arterial tree. All CT scans are performed using dose optimization technique as appropriate and may include automated exposure control or mA/KV adjustment according to patient size. FINDINGS: No pulmonary emboli are identified. The aorta as imaged shows no acute or suspicious finding. No pericardial thickening or effusion. Patchy parenchymal opacification in stranding changes are present in the right middle lobe and inferior aspect of the lingula left upper lobe. There is no lower lobe mass or consolidation. Interstitial markings are prominent. There is complete opacification of the bronchus intermedius and multiple segmental and subsegmental bronchi of the right lower lobe. This could be mucous plugging. Aspiration is possible. An obstructive endobronchial mass is possible. No other bronchial obstructive process seen. No pleural effusion or pleural thickening. No mediastinal or hilar suspicious masses. No chest wall masses or abnormal axillary lymphadenopathy. IMPRESSION: No pulmonary emboli identified. Patchy opacification in the right middle lobe and lingula of the left upper lobe favored to be scarring or atelectasis. Minimal infiltrate is possible. Complete opacification of the bronchus intermedius and numerous right lower lobe segmental and subsegmental branches. This could be mucous plugging from an infectious/inflammatory process or possibly due to aspiration. An obstructing endobronchial mass is a differential consideration. CT Head: FINDINGS: No intracranial hemorrhage, mass, edema or shift of mid-line stru ctures. No acute cortical based infarction, cortical edema or sulcal effacement. No abnormal extra-axial fluid collections. Moderate severity atrophy and chronic ischemic changes are present. Ventriculomegaly is in proportion to the amount of volume loss. Dense arterial tree calcifications are present. Mastoid air cells and visualized portions of the paranasal sinuses are clear. No acute bony findings. IMPRESSION: Negative non-contrast CT head examination for acute findings. Moderate severity atrophy and chronic ischemic change matching the December 17 comparison. Medical Problem List: Hypothermia, metabolic encephalopathy, severe sepsis secondary to right-sided aspiration pneumonia Acute kidney injury now back to baseline Diabetes mellitus type 2, insulin-dependent Advanced Alzheimer's/dementia Status post left femoral neck repair Anemia of chronic disease Hypothyroidism Hypertension Hyperlipidemia Brief History of Present Illness: 84-year-old female with history of diabetes mellitus type 2, hypertension, recent left femoral neck fracture with repair, Alzheimer's dementia, hyperlipidemia, anemia chronic disease, hypothyroidism presents emergency department for hyperglycemia, hypotension, altered mental status. Patient was recently discharged to long term facility for rehab, nursing staff reports that patient's blood sugar has been in the 700 set the day today and she has been receiving insulin doses periodically in, patient then had episode of weakness with profound hypotension and cyanosis and EMS was called. During transportation to the emergency department patient was very hypotensive with blood pressure around 50/20. Upon arrival to the emergency department patient's blood pressure had improved slightly. Patient was given 30 cc/kg sepsis fluid bolus in the emergency department, blood pressure has improved nicely and is currently around 120 systolic. Blood sugar 150. White blood cell count 9 hemoglobin 7.7 hematocrit 23.4 ABG pH 7.44 potassium 3.2 creatinine 1.57 GFR 31 glucose 152 lactic acid 7.4 initially repeat pending. Patient had CT PE protocol which demonstrated complete opacification of the bronchus intermedius and numerous right lower lobe segmental and subsegmental branches which could be mucous plugging from infectious or inflammatory process or possibly due to aspiration, and obstructing endobronchial mass is a differential consideration. Patient with end-stage dementia/Alzheimer's, is occasionally oriented x1, patient at high risk for aspiration. Suspect severe sepsis secondary to aspiration pneumonia. Patient admitted for further evaluation and treatment. Hospital Course: Patient presented with hypothermia, metabolic encephalopathy, acute renal injury and severe sepsis secondary to right-sided aspiration pneumonia. Patient with other chronic medical illnesses including chronic renal disease, diabetes mellitus type 2, advanced dementia, anemia of chronic disease, hypothyroidism and hypertension. During the course of her stay the patient was treated for aspiration pneumonia. Treatment for pneumonia has been completed. Chest x-ray shows improvement. Patient currently on room air. Patient was evaluated for skilled placement. Patient has been approved. This was discussed with medical planner with insurance. At discharge the patient will continue physical therapy at the skilled facility. She will continue to rehabilitate there. This was discussed in detail with family as well. Patient will likely require long- term care at a memory unit with the possibility of hospice if her condition declines in the future. Other option would be home with hospice with caregiver services. This was discussed in detail with daughter. For now patient will continue with skilled placement to hopefully increase her mobility. Patient remains DO NOT RESUSCITATE. Patient with acute renal injury. Patient now back to baseline. This was likely related to above infection. This can be monitored as an outpatient. Patient with diabetes mellitus type 2. Blood sugars better controlled with Lantus and Januvia. At discharge patient will continue with Lantus 10 units daily. Patient will also continue with Januvia 50 mg daily. Recommend to monitor blood sugar at least twice daily. Recommend to maintain blood sugar less than 140 fasting and less than 200 for meals. Further adjustment in her medication can be done by the intermediate physician. Recommend to maintain hemoglobin A1c around 7.5-8.0 due to her history of hypoglycemia. Patient with Alzheimer's dementia. Patient will continue with Aricept 10 mg daily at discharge. CODE STATUS addressed in detail with daughter. Patient is DNR. Patient with anemia chronic disease. Hemoglobin now stable. At discharge patient will continue with multivitamin daily, thiamine 100 mg daily and folic acid 1 mg daily. Recommend to recheck CBC in 2 to 4 weeks to monitor progress. Patient with hypothyroidism. At discharge patient will continue with current medication we will thyroxine 125 mcg daily. Recommend to recheck labTSH and free T4 in 6 to 8 weeks to monitor her progress. Patient with hypertension. This appears stable. At discharge patient will continue with Norvasc 5 mg daily and olmesartan 40 mg daily. Recommend to maintain blood pressure less than 130/80. Further adjustment can be done at the intermediate. Patient with hyperlipidemia. At discharge patient will continue with Zetia 10 mg daily Vital Signs/Physical Exam: Temp Pulse Resp BP Pulse Ox 97.7 F 66 14 146/70 H 96 01/10/21 04:00 01/10/21 04:00 01/10/21 04:00 01/10/21 04:00 01/10/21 04:00 General: Alert, In no apparent distress, Cooperative, Demented HEENT: Atraumatic Neck: Supple Respiratory: Clear to auscultation bilaterally, Normal air movement Cardiovascular: Normal pulses, Regular rate/rhythm Gastrointestinal: Normal bowel sounds, No tenderness, No masses, No rebound, No guarding Musculoskeletal: No tenderness, No warmth Integumentary: No tenderness/swelling Neurological: Normal speech, Normal strength at 5/5 x4 extr, Normal tone, Dementia Laboratory Data at Discharge: WBC 6.20 K/uL (4.3-10.9) 01/06/21 05:36 Hgb 10.0 g/dL (12.0-15.0) L 01/06/21 05:36 Hct 29.8 % (36.0-45.0) L 01/06/21 05:36 Plt Count 316 K/uL (152-406) 01/06/21 05:36 PT 13.0 SECONDS (9.5-12.5) H 12/28/20 20:36 INR 1.13 12/28/20 20:36 APTT Cancelled 12/28/20 20:36 Sodium 137 mmol/L (136-145) 01/10/21 03:51 Potassium 3.5 mmol/L (3.5-5.1) 01/10/21 03:51 BUN 19 mg/dL (7-18) H 01/10/21 03:51 Creatinine 0.68 mg/dL (0.55-1.3) 01/10/21 03:51 Glucose 240 mg/dL (74-106) H 01/10/21 03:51 Phosphorus 3.7 mg/dL (2.5-4.9) 01/05/21 05:00 Magnesium 2.1 mg/dL (1.8-2.4) 01/06/21 05:36 Total Bilirubin 0.3 mg/dL (0.2-1.0) 01/05/21 05:00 AST 18 U/L (15-37) 01/05/21 05:00 ALT 24 U/L (12-78) 01/05/21 05:00 Alkaline Phosphatase 80 U/L (45-117) 01/05/21 05:00 Lipase 73 U/L (73-393) 12/28/20 17:59 Home Medications: Amlodipine [Norvasc*] 5 mg PO DAILY 12/03/20 Donepezil [Aricept*] 10 mg PO DAILY 12/03/20 Ezetimibe 10 mg PO BEDTIME 12/03/20 Olmesartan Medoxomil 40 mg PO DAILY 12/03/20 Timolol [Betimol] 2 drops LEFT EYE DAILY 12/03/20 Calcium Carbonate/Vitamin D3 [Oscal 500 + Vit D 200 Iu Tab*] 1 tab PO BID #60 tab 12/13/20 Levothyroxine [Synthroid*] 125 mcg PO DAILYAC 12/17/20 Multivitamin with Minerals [Multivitamins with Minerals] 1 each PO DAILY 12/31/20 Sitagliptin Phosphate [Januvia*] 50 mg PO DAILY 12/31/20 Thiamine HCl 100 mg PO DAILY 12/31/20 Zinc Sulfate [Zinc Sulfate*] 220 mg PO DAILY 12/31/20 Ensure Pudding 4 oz PO TID #90 cup 01/10/21 Folic Acid 1 mg PO DAILY #90 tablet 01/10/21 Insulin Glargine Human [Lantus*] 10 units SQ BEDTIME #1 vial 01/10/21 Uday [Uday*] 1 pkt PO BID #60 powd.pack 01/10/21 New Medications: Ensure Pudding 4 oz PO TID #90 cup Folic Acid 1 mg PO DAILY #90 tablet Uday [Uday*] 1 pkt PO BID #60 powd.pack Insulin Glargine Human [Lantus*] 10 units SQ BEDTIME #1 vial Physician Discharge Instructions: Patient presented with hypothermia, metabolic encephalopathy, acute renal injury and severe sepsis secondary to right-sided aspiration pneumonia. Patient with other chronic medical illnesses including chronic renal disease, diabetes mellitus type 2, advanced dementia, anemia of chronic disease, hypothyroidism and hypertension. During the course of her stay the patient was treated for aspiration pneumonia. Treatment for pneumonia has been completed. Chest x-ray shows improvement. Patient currently on room air. Patient was evaluated for skilled placement. Patient has been approved. This was discussed with medical planner with insurance. At discharge the patient will continue physical therapy at the skilled facility. She will continue to rehabilitate there. This was discussed in detail with family as well. Patient will likely require long- term care at a memory unit with the possibility of hospice if her condition dec lines in the future. Other option would be home with hospice with caregiver services. This was discussed in detail with daughter. For now patient will continue with skilled placement to hopefully increase her mobility. Patient remains DO NOT RESUSCITATE. Patient with acute renal injury. Patient now back to baseline. This was likely related to above infection. This can be monitored as an outpatient. Patient with diabetes mellitus type 2. Blood sugars better controlled with Lantus and Januvia. At discharge patient will continue with Lantus 10 units daily. Patient will also continue with Januvia 50 mg daily. Recommend to monitor blood sugar at least twice daily. Recommend to maintain blood sugar less than 140 fasting and less than 200 for meals. Further adjustment in her medication can be done by the intermediate physician. Recommend to maintain hemoglobin A1c around 7.5-8.0 due to her history of hypoglycemia. Patient with Alzheimer's dementia. Patient will continue with Aricept 10 mg daily at discharge. CODE STATUS addressed in detail with daughter. Patient is DNR. Patient with anemia chronic disease. Hemoglobin now stable. At discharge patient will continue with multivitamin daily, thiamine 100 mg daily and folic acid 1 mg daily. Recommend to recheck CBC in 2 to 4 weeks to monitor progress. Patient with hypothyroidism. At discharge patient will continue with current medication we will thyroxine 125 mcg daily. Recommend to recheck labTSH and free T4 in 6 to 8 weeks to monitor her progress. Patient with hypertension. This appears stable. At discharge patient will continue with Norvasc 5 mg daily and olmesartan 40 mg daily. Recommend to maintain blood pressure less than 130/80. Further adjustment can be done at the intermediate. Patient with hyperlipidemia. At discharge patient will continue with Zetia 10 mg daily Diet: ADA Activity: Fall precautions Followup: NONE,NONE [Primary Care Provider] - Time spent managing pt's care (in minutes): 55
[2021-01-10] MEDS: INSULIN -REGULAR HUMAN 50 UNIT/0.5 ML ML SQ SCH ×3 (07:30→12:47)
[2021-01-10] MEDS: CALCIUM CARB 500MG/VIT D 200 IU TAB PO SCH (09:00)
[2021-01-10] MEDS: TIMOLOL OPTH SCH (09:00)
[2021-01-10] MEDS: ENSURE PUDDING 4 OZ CUP PO SCH (09:00)
[2021-01-10] MEDS: ENOXAPARIN 40 MG/0.4 ML SQ SCH (09:00)
[2021-01-10] MEDS: JUVEN PACKET PO SCH (09:13)
[2021-01-10] MEDS: SITAGLIPTIN PHOS 100 MG TAB PO SCH (09:13)
[2021-01-10] MEDS: MULTIVIT W/ MINERAL TAB PO SCH (09:13)
[2021-01-10] MEDS: AMLODIPINE 5 MG TAB PO SCH (09:14)
[2021-01-10] MEDS: VALSARTAN 160 MG TAB PO SCH (09:14)
[2021-01-10] MEDS: ZINC SULFATE 220 MG CAP PO SCH (09:14)
[2021-01-10] MEDS: THIAMINE HCL 100 MG TABLET PO SCH (09:14)
[2021-01-10] MEDS: FOLIC ACID 1 MG TABLET PO SCH (09:15)
[2021-01-10 12:06] VITALS: BP 104/55; TEMP 96.5
[2021-01-10] MEDS ORDERED: NA CHLORIDE 0.9% 250 ML IV ONE (12:15)
[2021-01-10 12:30] VITALS: O2SAT 95
[2021-01-10] MEDS ORDERED: NA CHLORIDE 0.9% 250 ML ONE (12:41)
== END 2021-01-10 13:56 | DRG 871 ==
LOC: ER 17:37 → ERHOLD 20:27 → 4TH 12-31 22:45
PROVIDERS: ADMIT Family Medicine; ATTEND Family Medicine
DX: A41.9 Sepsis, unspecified organism (principal); J18.9 Pneumonia, unspecified organism; G93.41 Metabolic encephalopathy; J69.0 Pneumonitis due to inhalation of food and vomit; N17.9 Acute kidney failure, unspecified; Z68.1 Body mass index [BMI] 19.9 or less, adult; E44.0 Moderate protein-calorie malnutrition; R65.20 Severe sepsis without septic shock; G30.9 Alzheimer's disease, unspecified; F02.80 Dementia in other diseases classified elsewhere, unspecified severity, without behavioral disturbance, psychotic disturbance, mood disturbance, and anxiety; D63.8 Anemia in other chronic diseases classified elsewhere; E03.9 Hypothyroidism, unspecified; E78.5 Hyperlipidemia, unspecified; I12.9 Hypertensive chronic kidney disease with stage 1 through stage 4 chronic kidney disease, or unspecified chronic kidney disease; E11.22 Type 2 diabetes mellitus with diabetic chronic kidney disease; N18.2 Chronic kidney disease, stage 2 (mild); Z98.890 Other specified postprocedural states; T68.XXXA Hypothermia, initial encounter; L89.321 Pressure ulcer of left buttock, stage 1; L89.311 Pressure ulcer of right buttock, stage 1; L89.892 Pressure ulcer of other site, stage 2; Z66 Do not resuscitate; Z79.4 Long term (current) use of insulin; Z20.822 Contact with and (suspected) exposure to COVID-19
CPT/HCPCS: 36415; 51702; 70450; 71045; 71275; 74230; 80048; 80053; 80076; 80307; 81003; 81015; 82010; 82550; 82565; 82805; 82947; 83605; 83690; 83735; 83880; 84100; 84132; 84145; 84484; 85014; 85018; 85025; 85610; 86850; 86900; 86901; 87040; 87086; 87088; 92611; 92851; 97116; 97161; 97530; 99291; 99292; J0360; J0610; J1650; J1720; J1815; J1940; J3411; J3475; J3480; J7030; J7040; J7050; J7512; J7799; P9016; Q9967; U0003